=== PATIENT | female | born 1940 | race Caucasian/White ===

== ENCOUNTER → 2017-01-16 | Outpatient (CLI) | payer MEDICARE, OTHER ==
--- NOTE | 2017-01-16 13:39 | RADIOLOGY REPORT (SQ) ---
EXAM DESCRIPTION: CHEST PA/LATERAL COMPLETED DATE/TIME: 01/16/2017 11:53 am REASON FOR STUDY: COUGH COMPARISON: None. EXAM PARAMETERS: NUMBER OF VIEWS: two views TECHNIQUE: Digital Frontal and Lateral radiographic views of the chest acquired. RADIATION DOSE: NA LIMITATIONS: none FINDINGS: LUNGS AND PLEURA: No opacities, masses or pneumothorax. No pleural effusion. MEDIASTINUM AND HILAR STRUCTURES: No masses or contour abnormalities. Retrocardiac hiatal hernia. HEART AND VASCULAR STRUCTURES: Heart normal size. No evidence for failure. BONES: Right shoulder prosthesis. HARDWARE: Cardiac valve. OTHER: No other significant finding. IMPRESSION: No acute pulmonary disease. Retrocardiac hiatal hernia. TECHNICAL DOCUMENTATION: JOB ID: [id number] [employer]- All Rights Reserved
== END ==
LOC: OD 11:30
PROVIDERS: ATTEND Family Medicine
DX: R05 Cough (principal); K44.9 Diaphragmatic hernia without obstruction or gangrene
CPT/HCPCS: 71020

== ENCOUNTER 2017-03-15 07:44 | Outpatient (CLI) | payer MEDICARE, OTHER ==
[~2017-03-15 07:44] MED LIST: ACETAMINOPHEN 325 MG TABLET PO PRN; DIPHENHYDRAMINE HCL 25 MG CAPSULE PO PRN; IRON DEXTRAN COMPLEX 25 MG in SYRINGE, DISPOSABLE, 1 EACH IV PRN; IRON DEXTRAN COMPLEX 975 MG in NORMAL SALINE 1000 ML 1,000 ML IV PRN
[2017-03-15] MEDS: NORMAL SALINE 250 ML IV PRN ×2 (08:12→08:42)
[2017-03-15 08:57] VITALS: BP 113/56
== END 2017-03-15 14:18 | disposition home or self-care (01) ==
LOC: II 07:44 → 5TH 08:21 → II 14:18
PROVIDERS: ATTEND Internal Medicine
PROC: 3E033GC Introduction of Other Therapeutic Substance into Peripheral Vein, Percutaneous Approach (ICD-10-PCS; principal; 2017-03-15)
DX: D50.8 Other iron deficiency anemias (principal)
CPT/HCPCS: 96365; 96366; 96375; A9270 ×2; J1750; J7030; J3490; 96374

== ENCOUNTER 2017-03-16 16:54 | Inpatient (IN) | payer MEDICARE, OTHER ==
[2017-03-16 18:07] LABS: ABSOLUTE BASOPHILS # (AUTO) 0.1 10^3/uL (0.0-0.2); ABSOLUTE EOSINOPHILS # (AUTO) 0.1 10^3/uL (0.0-0.6); ABSOLUTE LYMPHOCYTES (AUTO) 1.8 10^3/uL (0.5-4.7); ABSOLUTE MONOCYTES (AUTO) 0.6 10^3/uL (0.1-1.4); ABSOLUTE NEUT (AUTO) 7.3 10^3/uL (1.7-8.2); BASOPHILS % (AUTO) 1.2 % (0-2); EOSINOPHILS % (AUTO) 1.2 % (0-6); HEMATOCRIT 19.5 % (36.0-47.0); HGB HCT DIFFERENCE 0.3; LYMPHOCYTES % (AUTO) 18.2 % (13-45); MEAN CORPUSCULAR HGB CONC 33.6 g/dL (32.0-36.0); MEAN CORPUSCULAR VOLUME 86 fl (80-97); MONOCYTES % (AUTO) 5.8 % (3-13); RED BLOOD COUNT 2.26 10^6/uL (3.72-5.28); RED CELL DISTRIBUTION WIDTH 14.7 % (11.5-14.0); SEGMENTED NEUTROPHILS % (AUTO) 73.6 % (42-78); WHITE BLOOD COUNT 9.9 10^3/uL (4.0-10.5)
[2017-03-16 18:10] LABS: HEMOGLOBIN 6.6 g/dL (12.0-15.5)
[2017-03-16 18:22] LABS: ALANINE AMINOTRANSFERASE < 6 U/L (9-52); ALBUMIN 3.2 g/dL (3.5-5.0); ALKALINE PHOSPHATASE 70 U/L (38-126); ANION GAP 9 (5-19); ASPARTATE AMINO TRANSFERASE 20 U/L (14-36); BILIRUBIN,DIRECT 0.4 mg/dL (0.0-0.4); BILIRUBIN,TOTAL 0.4 mg/dL (0.2-1.3); BLOOD UREA NITROGEN 32 mg/dL (7-20); CARBON DIOXIDE 24 mmol/L (22-30); CHLORIDE 108 mmol/L (98-107); CREATININE RESULT 0.97 mg/dL (0.52-1.25); GLUCOSE 102 mg/dL (75-110); POTASSIUM 4.2 mmol/L (3.6-5.0); SODIUM 141.2 mmol/L (137-145); TOTAL PROTEIN 5.7 g/dL (6.3-8.2)
--- NOTE | 2017-03-16 18:28 | RADIOLOGY REPORT (SQ) ---
EXAM DESCRIPTION: CHEST SINGLE VIEW COMPLETED DATE/TIME: 03/16/2017 6:05 pm REASON FOR STUDY: fluid overload COMPARISON: 01/16/2017 EXAM PARAMETERS: NUMBER OF VIEWS: One view. TECHNIQUE: Single frontal radiographic view of the chest acquired. RADIATION DOSE: NA LIMITATIONS: None. FINDINGS: LUNGS AND PLEURA: No opacities, masses or pneumothorax. No pleural effusion. MEDIASTINUM AND HILAR STRUCTURES: No masses. Contour normal. HEART AND VASCULAR STRUCTURES: Heart size is borderline. There is no failure. BONES: No acute findings. HARDWARE: Sternotomy wires. OTHER: No other significant finding. IMPRESSION: Borderline cardiomegaly with no failure. TECHNICAL DOCUMENTATION: JOB ID: [id number] [employer]- All Rights Reserved
--- NOTE | 2017-03-16 18:56 | ER Document Report ---
ED General - General Mode of Arrival: Wheelchair Information source: Patient TRAVEL OUTSIDE OF THE U.S. IN LAST 30 DAYS: No - HPI Onset: This morning Exacerbated by: Movement, Walking <FRAN KAUR - Last Filed: 03/16/17 19:08> <BUD PACKER - Last Filed: 03/16/17 23:25> - General Chief Complaint: Shortness Of Breath Stated Complaint: WEAKNESS Notes: Patient is a 77 year old female with a history of CHF presents to the emergency department complaining of multiple symptoms including weakness, dizziness, nausea, and difficulty breathing when walking. Patient states that her legs feel heavy when she tries to move. Patient denies any vomiting or diarrhea. Patient states that she had an iron infusion yesterday due to her being anemic. Patient states she has a history of nosebleeds and would have an occasional "small" nosebleed over the last couple of months. (FRAN KAUR) Patient is feeling particularly weak on exertion, states this feels very different from her CHF and from usual after iron infusions. (BUD PACKER) - Related Data Allergies/Adverse Reactions: No Known Allergies Allergy (Unverified 03/12/17 15:29) Home Medications: Current Home Medications Cetirizine HCl [24Hour Allergy] 10 mg PO DAILY 03/16/17 [History] Duloxetine HCl [Cymbalta] 30 mg PO DAILY 03/16/17 [History] Fluticasone Propionate [Flonase Nasal [place] 50 Mcg/[place] 16 gm] 1 spray NASL Q12 03/16/17 [History] Warfarin Sodium [Coumadin 2.5 mg Tablet] 2.5 mg PO QHS 03/16/17 [History] Past Medical History - General Information source: Patient - Social History Smoking Status: Never Smoker Chew tobacco use (# tins/day): No Frequency of alcohol use: Occasional Drug Abuse: None Patient has suicidal ideation: No Patient has homicidal ideation: No - Past Medical History Cardiac Medical History: Reports: Hx Congestive Heart Failure Musculoskeltal Medical History: Reports Hx Arthritis <FRAN KAUR - Last Filed: 03/16/17 19:08> - Social History Family History: Hypertension <BUD PACKER - Last Filed: 03/16/17 23:25> Review of Systems - Review of Systems Constitutional: See HPI, Weakness EENT: No symptoms reported Cardiovascular: See HPI, Dizziness Respiratory: See HPI, Other - difficulty breathing Gastrointestinal: See HPI, Nausea. denies: Vomiting Genitourinary: No symptoms reported Female Genitourinary: No symptoms reported Musculoskeletal: No symptoms reported Skin: No symptoms reported Hematologic/Lymphatic: No symptoms reported Neurological/Psychological: No symptoms reported -: Yes All other systems reviewed and negative <FRAN KAUR - Last Filed: 03/16/17 19:08> Physical Exam <FRAN KAUR - Last Filed: 03/16/17 19:08> <BUD PACKER - Last Filed: 03/16/17 23:25> - Vital signs Vitals: Temp 98.1 F 03/16/17 17:11 - Notes Notes: GENERAL: Alert, interacts well. No acute distress. HEAD: Normocephalic, atraumatic. EYES: Pupils equal, round, and reactive to light. Extraocular movements intact. ENT: Oral mucosa moist, tongue midline. NECK: Full range of motion. Supple. Trachea midline. LUNGS: Clear to auscultation bilaterally, no wheezes, rales, or rhonchi. No respiratory distress. HEART: 1/6 systolic murmur in RUSP. No gallops, or rubs. ABDOMEN: Soft, non-tender. Non-distended. Bowel sounds present in all 4 quadrants. EXTREMITIES: Moves all 4 extremities spontaneously. No edema, radial and dorsalis pedis pulses 2/4 bilaterally. No cyanosis. NEUROLOGICAL: Alert and oriented x3. Normal speech. PSYCH: Normal affect, normal mood. SKIN: Warm, dry, normal turgor. No rashes or lesions noted. RECTAL: No melanoma, no bright red blood. Stool is dark and firm in rectum. (FRAN KAUR) Correction to exam it should say 1/6 systolic murmur best heard in the RUSB ( BUD PACKER) Course - Laboratory Result Diagrams: 03/16/17 17:20 03/16/17 17:20 <FRAN KAUR - Last Filed: 03/16/17 19:08> - Laboratory Result Diagrams: 03/16/17 17:20 03/16/17 17:20 <BUD PACKER - Last Filed: 03/16/17 23:25> - Re-evaluation Re-evalutation: 03/16/17 21:14 CBC shows marked anemia with hemoglobin 6.6, I have no old ones to compare to but this seems markedly worse than would be typical and certainly explains her symptoms of profound fatigue. Cardiac enzymes negative, proBNP not elevated, occult blood is positive though she is not melanotic or grossly bloody, chest x- ray does not show any signs of congestive heart failure. Patient does need a blood transfusion given her symptoms and her profound anemia , given her CHF and her tenuous fluid status I feel this is more safely done as an observation patient, discussed with Dr. Chen who is covering for Dr. Gonzalez and he agreed to place patient on his service in observation status for a blood transfusion. (BUD PACKER) - Vital Signs Vital signs: Temp Pulse Resp BP Pulse Ox 98 F 21 H 93/52 L 97 03/16/17 22:31 03/16/17 22:31 03/16/17 22:31 03/16/17 22:31 - Laboratory Laboratory results interpreted by me: 03/16/17 03/16/17 03/16/17 17:20 17:20 19:15 RBC 2.26 L Hgb 6.6 L Hct 19.5 L RDW 14.7 H Chloride 108 H BUN 32 H Est GFR (Non-Af Amer) 55 L ALT < 6 L Total Protein 5.7 L Albumin 3.2 L Urine Ketones Urine Ascorbic Acid Crossmatch See Detail 03/16/17 21:29 RBC Hgb Hct RDW Chloride BUN Est GFR (Non-Af Amer) ALT Total Protein Albumin Urine Ketones TRACE H Urine Ascorbic Acid 40 H Crossmatch Discharge <FRAN KAUR - Last Filed: 03/16/17 19:08> - Discharge Admitting Provider: Carlos luciano covering Unit Admitted: Telemetry <BUD PACKER - Last Filed: 03/16/17 23:25> - Discharge Clinical Impression: Anemia Qualifiers: Anemia type: iron deficiency Iron deficiency anemia type: chronic blood loss Qualified Code(s): D50.0 - Iron deficiency anemia secondary to blood loss ( chronic) Condition: Fair Disposition: ADMITTED OBSERVATION Scribe Attestation: 03/16/17 23:24 I personally performed the services described in the documentation, reviewed and edited the documentation which was dictated to the scribe in my presence, and it accurately records my words and actions. (BUD PACKER) Scribe Documentation - Scribe Written by Joe:: Joe Hernandes, 03/16/2017 acting as scribe for :: Luca <FRAN KAUR - Last Filed: 03/16/17 19:08>
[2017-03-16 19:12] LABS: CREATINE KINASE MB 0.47 ng/mL (<4.55)
[2017-03-16 19:15] LABS: TROPONIN I < 0.012 ng/mL
[2017-03-16] MEDS ORDERED: NORMAL SALINE 250 ML IV PRN (20:36)
[2017-03-16 21:55] LABS: APPEARANCE,URINE CLEAR; BILIRUBIN,URINE NEGATIVE (NEGATIVE); GLUCOSE, URINE NEGATIVE (NEGATIVE); KETONES,URINE TRACE mg/dL (NEGATIVE); LEUKOCYTE ESTERASE,URINE NEGATIVE (NEGATIVE); NITRITE,URINE NEGATIVE (NEGATIVE); PROTEIN,URINE NEGATIVE (NEGATIVE); URINE SPECIFIC GRAVITY 1.012; UROBILINOGEN,URINE NEGATIVE mg/dL (<2.0)
[2017-03-17 09:52] LABS: ABSOLUTE BASOPHILS # (AUTO) 0.1 10^3/uL (0.0-0.2); ABSOLUTE EOSINOPHILS # (AUTO) 0.2 10^3/uL (0.0-0.6); ABSOLUTE LYMPHOCYTES (AUTO) 2.6 10^3/uL (0.5-4.7); ABSOLUTE MONOCYTES (AUTO) 0.7 10^3/uL (0.1-1.4); ABSOLUTE NEUT (AUTO) 5.8 10^3/uL (1.7-8.2); BASOPHILS % (AUTO) 1.3 % (0-2); EOSINOPHILS % (AUTO) 2.2 % (0-6); HEMATOCRIT 25.4 % (36.0-47.0); HEMOGLOBIN 8.6 g/dL (12.0-15.5); HGB HCT DIFFERENCE 0.4; LYMPHOCYTES % (AUTO) 27.8 % (13-45); MEAN CORPUSCULAR HEMOGLOBIN 29.1 pg (27.0-33.4); MEAN CORPUSCULAR VOLUME 86 fl (80-97); MONOCYTES % (AUTO) 7.5 % (3-13); RED BLOOD COUNT 2.97 10^6/uL (3.72-5.28); RED CELL DISTRIBUTION WIDTH 14.8 % (11.5-14.0); SEGMENTED NEUTROPHILS % (AUTO) 61.2 % (42-78); WHITE BLOOD COUNT 9.4 10^3/uL (4.0-10.5)
[2017-03-17 12:46] VITALS: BP 121/56
[2017-03-17 14:36] LABS: PROTHROMBIN TIME 27.9 SEC (11.4-15.4)
--- NOTE | 2017-03-17 15:03 | PDOC H&P ---
History of Present Illness Admission Date/PCP: 03/16/17 21:36 BRISEIDA CRAFT MD History of Present Illness: ZENY PRITCHARD is a 77 year old female, she has a history of chronic anemia, she stated that the anemia was extensively evaluated with multiple endoscopies even when she was staying in [facility]. She just recently moved to this area from [place], she said since she came via she also has had endoscopies done for evaluation of the anemia, she follows with cooker tender, she had iron infusion on of this week. She could emergency room last night because she felt very fatigued, she is very functional, she walks every day, but she says she felt very weak in the emergency room she was evaluated she was found to be anemic the hemoglobin was 6.6. She was admitted for management she was transfused with 2 units of packed red blood cells posttransfusion hemoglobin is 8.6. She has a mechanical valve on she is on chronic anticoagulation with Coumadin, the INR was therapeutic at 2.45. She says she wants to go home she is going to stay to be evaluated for this anemia because she has had extensive evaluation in the past, she will follow with Dr. Craft next week for further evaluation of the anemia. Past Medical History Musculoskeltal Medical History: Reports: Arthritis Hematology: Reports: Anemia Social History Smoking Status: Never Smoker - Advance Directive Resuscitation Status: Full Code Family History Family History: Hypertension Parental Family History Reviewed: Yes Children Family History Reviewed: Yes Sibling(s) Family History Reviewed.: Yes Medication/Allergy Home Medications: Cetirizine HCl [24Hour Allergy] 10 mg PO DAILY 03/16/17 Duloxetine HCl [Cymbalta] 30 mg PO DAILY 03/16/17 Fluticasone Propionate [Flonase Nasal [place] 50 Mcg/[place] 16 gm] 1 spray NASL Q12 03/16/17 Warfarin Sodium [Coumadin 2.5 mg Tablet] 2.5 mg PO QHS 03/16/17 Allergies/Adverse Reactions: No Known Allergies Allergy (Unverified 03/12/17 15:29) Review of Systems Constitutional: PRESENT: fatigue Eyes: ABSENT: visual disturbances Ears: ABSENT: hearing changes Cardiovascular: ABSENT: chest pain, dyspnea on exertion, edema, orthropnea, palpitations Respiratory: ABSENT: cough, hemoptysis Gastrointestinal: ABSENT: abdominal pain, constipation, diarrhea, hematemesis, hematochezia, nausea, vomiting Genitourinary: ABSENT: dysuria, hematuria Musculoskeletal: ABSENT: joint swelling Integumentary: ABSENT: rash, wounds Neurological: ABSENT: abnormal gait, abnormal speech, confusion, dizziness, focal weakness, syncope Psychiatric: ABSENT: anxiety, depression, homidical ideation, suicidal ideation Endocrine: ABSENT: cold intolerance, heat intolerance, menstrual abnormalities, polydipsia, polyuria Hematologic/Lymphatic: ABSENT: easy bleeding, easy bruising, lymphadenopathy Physical Exam Vital Signs: Temp Pulse Resp BP Pulse Ox 98.3 F 75 20 121/56 L 98 03/17/17 12:02 03/17/17 12:02 03/17/17 12:02 03/17/17 12:02 03/17/17 12:02 Intake & Output 03/16/17 03/17/17 03/18/17 06:59 06:59 06:59 Intake Total 550 950 Output Total 500 Balance 550 450 Weight 78.4 kg General appearance: PRESENT: no acute distress, well-developed, well-nourished Head exam: PRESENT: atraumatic, normocephalic Eye exam: PRESENT: conjunctiva pink, EOMI, PERRLA Ear exam: PRESENT: normal external ear exam Mouth exam: PRESENT: moist, tongue midline Neck exam: PRESENT: full ROM Respiratory exam: PRESENT: clear to auscultation moni Cardiovascular exam: PRESENT: RRR, +S1, +S2 Pulses: PRESENT: normal dorsalis pedis pul, +2 pedal pulses bilateral Vascular exam: PRESENT: normal capillary refill GI/Abdominal exam: PRESENT: normal bowel sounds, soft Rectal exam: PRESENT: deferred Neurological exam: PRESENT: alert, awake, oriented to person, oriented to place , oriented to time, oriented to situation, CN II-XII grossly intact Psychiatric exam: PRESENT: appropriate affect, normal mood Skin exam: PRESENT: dry, intact, warm Results Laboratory Results: 03/17/17 09:42 03/17/17 09:42 WBC 9.4 RBC 2.97 L Hgb 8.6 L Hct 25.4 L MCV 86 MCH 29.1 MCHC 34.0 RDW 14.8 H Plt Count 285 Seg Neutrophils % 61.2 Lymphocytes % 27.8 Monocytes % 7.5 Eosinophils % 2.2 Basophils % 1.3 Absolute Neutrophils 5.8 Absolute Lymphocytes 2.6 Absolute Monocytes 0.7 Absolute Eosinophils 0.2 Absolute Basophils 0.1 Impressions: Chest X-Ray 03/16/17 17:35 IMPRESSION: Borderline cardiomegaly with no failure. Assessment & Plan - Diagnosis (1) Anemia Qualifiers: Anemia type: iron deficiency Iron deficiency anemia type: chronic blood loss Qualified Code(s): D50.0 - Iron deficiency anemia secondary to blood loss (chronic) Is this a current diagnosis for this admission?: Yes Plan: She was admitted for observation essentially for blood transfusion
--- NOTE | 2017-03-17 20:58 | EKG REPORT ---
SEVERITY:- BORDERLINE ECG - SINUS RHYTHM BORDERLINE T ABNORMALITIES, ANT-LAT LEADS : Confirmed by: Kile Alex MD 16-Mar-2017 19:52:48
[2017-03-17] MEDS ORDERED: WARFARIN SODIUM 2.5 MG TABLET PO SCH (22:00)
== END 2017-03-17 15:10 | disposition home or self-care (01) | DRG 812 ==
LOC: ER 16:54 → OBSVTOIN 21:36 → EH 21:36 → 5 22:59
PROVIDERS: ADMIT Family Medicine; ATTEND Family Medicine
PROC: 30233N1 Transfusion of Nonautologous Red Blood Cells into Peripheral Vein, Percutaneous Approach (ICD-10-PCS; principal; 2017-03-17)
DX: D50.0 Iron deficiency anemia secondary to blood loss (chronic) (principal); M19.90 Unspecified osteoarthritis, unspecified site; I50.9 Heart failure, unspecified; Z95.2 Presence of prosthetic heart valve; Z79.01 Long term (current) use of anticoagulants; Z82.49 Family history of ischemic heart disease and other diseases of the circulatory system
CPT/HCPCS: 36415; 36430; 71010; 80053; 81001; 82272; 82550; 82553; 83880; 84484; 85025; 85610; 86850; 86900; 86901; 86920; 93005; 93010; 99285; G0378; P9016

== ENCOUNTER 2017-06-10 12:00 | Emergency (ER) | payer MEDICARE, OTHER ==
[2017-06-10] MEDS ORDERED: NORMAL SALINE 1000 ML 500 ML IV ONE (13:18)
--- NOTE | 2017-06-10 13:20 | ER Document Report ---
ED Medical Screen (RME) - General Mode of Arrival: Ambulatory Information source: Patient TRAVEL OUTSIDE OF THE U.S. IN LAST 30 DAYS: No <EDWARDO ERVIN - Last Filed: 06/10/17 13:15> <TOBIAS CLAIRE - Last Filed: 06/10/17 15:14> - General Chief Complaint: Weakness Stated Complaint: WEAKNESS Time Seen by Provider: 06/10/17 12:07 Notes: Patient is a 77 year old female that presents to the emergency department today with complaints of generalized weakness. Patient states "I feel like I need my iron infusion now". Patient has her 3-month iron infusion scheduled for tomorrow however she states she "doesn't feel like she can wait". Patient states she feels weak all over, has had shortness of breath, and generalized aches. Patient denies any fevers, recent illnesses, or black/red stool. (EDWARDO ERVIN) - Related Data Allergies/Adverse Reactions: No Known Allergies Allergy (Unverified 03/12/17 15:29) Past Medical History - General Information source: Patient, [facility] Records - Social History Cigarette use (# per day): No Chew tobacco use (# tins/day): No Frequency of alcohol use: None Drug Abuse: None Lives with: Family Family history: Reviewed & Not Pertinent - Past Medical History Cardiac Medical History: Reports: Hx Congestive Heart Failure Musculoskeltal Medical History: Reports Hx Arthritis Surgical Hx: Negative - Immunizations History of Influenza Vaccine for 01/2017 - 06/2017 Season: Yes Influenza Administration Date for 01/2017 - 06/2017 Season: 01/14/17 <EDWARDO ERVIN - Last Filed: 06/10/17 13:15> Review of Systems - Review of Systems Constitutional: See HPI, Weakness - generalized Respiratory: See HPI, Short of breath Musculoskeletal: See HPI, Joint pain <EDWARDO ERVIN - Last Filed: 06/10/17 13:15> Physical Exam - General General appearance: Appears well, Alert In distress: None - HEENT Head: Normocephalic, Atraumatic Eyes: Normal - Respiratory Respiratory status: No respiratory distress Chest status: Nontender Breath sounds: Normal - Cardiovascular Rhythm: Tachycardia Heart sounds: Normal auscultation Murmur: Yes - systolic - Abdominal Inspection: Normal Distension: No distension - Extremities General upper extremity: Normal inspection, Normal ROM General lower extremity: Normal inspection, Normal ROM - Neurological Neuro grossly intact: Yes Cognition: Normal Orientation: AAOx4 - Psychological Associated symptoms: Normal affect, Normal mood - Skin Skin Temperature: Warm Skin Moisture: Dry Skin Color: Normal <EDWARDO ERVIN - Last Filed: 06/10/17 13:15> - Vital signs Vitals: Temp Pulse Resp BP Pulse Ox 98.7 F 120 H 18 88/55 L 95 06/10/17 12:12 06/10/17 12:12 06/10/17 12:12 06/10/17 12:12 06/10/17 12:12 Course - Laboratory Result Diagrams: 06/10/17 13:23 06/10/17 13:23 <TOBIAS CLAIRE - Last Filed: 06/10/17 15:14> - Vital Signs Vital signs: Temp Pulse Resp BP Pulse Ox 98.7 F 120 H 21 H 100/70 96 06/10/17 12:12 06/10/17 12:12 06/10/17 14:17 06/10/17 13:00 06/10/17 14:17 - Laboratory Laboratory results interpreted by me: 06/10/17 06/10/17 13:23 13:23 Hgb 11.6 L Hct 35.7 L RDW 15.7 H Basophils % 2.5 H BUN 22 H Est GFR ( Amer) 57 L Est GFR (Non-Af Amer) 47 L Glucose 118 H Total Bilirubin 0.1 L Scribe Documentation - Scribe Written by Joe:: Joe French, 06/10/2017 1320 acting as scribe for :: Jeff <EDWARDO ERVIN - Last Filed: 06/10/17 13:15>
[2017-06-10 13:39] LABS: ABSOLUTE BASOPHILS # (AUTO) 0.2 10^3/uL (0.0-0.2); ABSOLUTE EOSINOPHILS # (AUTO) 0.1 10^3/uL (0.0-0.6); ABSOLUTE LYMPHOCYTES (AUTO) 1.8 10^3/uL (0.5-4.7); ABSOLUTE MONOCYTES (AUTO) 0.3 10^3/uL (0.1-1.4); ABSOLUTE NEUT (AUTO) 4.7 10^3/uL (1.7-8.2); BASOPHILS % (AUTO) 2.5 % (0-2); HEMATOCRIT 35.7 % (36.0-47.0); HEMOGLOBIN 11.6 g/dL (12.0-15.5); LYMPHOCYTES % (AUTO) 26.1 % (13-45); MEAN CORPUSCULAR HEMOGLOBIN 29.3 pg (27.0-33.4); MEAN CORPUSCULAR HGB CONC 32.5 g/dL (32.0-36.0); MEAN CORPUSCULAR VOLUME 90 fl (80-97); PLATELET COUNT 312 10^3/uL (150-450); RED BLOOD COUNT 3.97 10^6/uL (3.72-5.28); RED CELL DISTRIBUTION WIDTH 15.7 % (11.5-14.0); RETICULOCYTE COUNT (AUTO) 0.75 % (0.66-2.85); SEGMENTED NEUTROPHILS % (AUTO) 66.4 % (42-78); TOTAL CELLS COUNTED % (AUTO) 100 %; WHITE BLOOD COUNT 7.1 10^3/uL (4.0-10.5)
[2017-06-10 13:53] LABS: ALANINE AMINOTRANSFERASE 23 U/L (9-52); ALBUMIN 4.4 g/dL (3.5-5.0); ALKALINE PHOSPHATASE 81 U/L (38-126); ANION GAP 12 (5-19); ASPARTATE AMINO TRANSFERASE 25 U/L (14-36); BILIRUBIN,TOTAL 0.1 mg/dL (0.2-1.3); BLOOD UREA NITROGEN 22 mg/dL (7-20); CALCIUM 9.6 mg/dL (8.4-10.2); CARBON DIOXIDE 25 mmol/L (22-30); CHLORIDE 106 mmol/L (98-107); GLUCOSE 118 mg/dL (75-110); IRON(TIBC) 40.1 ug/dL (37-170); POTASSIUM 4.7 mmol/L (3.6-5.0); SODIUM 143.4 mmol/L (137-145); TOTAL PROTEIN 6.8 g/dL (6.3-8.2)
[2017-06-10 15:03] LABS: FOLATE > 20.00 ng/mL (>2.76)
--- NOTE | 2017-06-10 15:24 | ER Document Report ---
ED Dizziness/Weakness - General Chief Complaint: Weakness Stated Complaint: WEAKNESS Time Seen by Provider: 06/10/17 12:07 Mode of Arrival: Ambulatory TRAVEL OUTSIDE OF THE [place]. IN LAST 30 DAYS: No - Related Data Allergies/Adverse Reactions: No Known Allergies Allergy (Unverified 03/12/17 15:29) Past Medical History - General Information source: Patient, [facility] Records - Social History Smoking Status: Never Smoker Cigarette use (# per day): No Chew tobacco use (# tins/day): No Frequency of alcohol use: None Drug Abuse: None Lives with: Family Family History: Hypertension Patient has suicidal ideation: No Patient has homicidal ideation: No - Past Medical History Cardiac Medical History: Reports: Hx Congestive Heart Failure Renal/ Medical History: Denies: Hx Peritoneal Dialysis Musculoskeltal Medical History: Reports Hx Arthritis Surgical Hx: Negative - Immunizations Hx Pneumococcal Vaccination: 04/16/14 Physical Exam - Vital signs Vitals: Temp Pulse Resp BP Pulse Ox 98.7 F 120 H 18 88/55 L 95 06/10/17 12:12 06/10/17 12:12 06/10/17 12:12 06/10/17 12:12 06/10/17 12:12 Course - Vital Signs Vital signs: Temp Pulse Resp BP Pulse Ox 98.7 F 120 H 21 H 100/70 96 06/10/17 12:12 06/10/17 12:12 06/10/17 14:17 06/10/17 13:00 06/10/17 14:17 - Laboratory Result Diagrams: 06/10/17 13:23 06/10/17 13:23 Laboratory results interpreted by me: 06/10/17 06/10/17 13:23 13:23 Hgb 11.6 L Hct 35.7 L RDW 15.7 H Basophils % 2.5 H BUN 22 H Est GFR ( Amer) 57 L Est GFR (Non-Af Amer) 47 L Glucose 118 H Total Bilirubin 0.1 L Discharge - Discharge Clinical Impression: Dehydration, History of anemia Condition: Stable Disposition: HOME, SELF-CARE Additional Instructions: Drink plenty of fluids. Return immediately for any new or worsening symptoms. Follow up with primary care provider, call tomorrow to make followup appointment. Referrals: JUAN CRAFT MD [Primary Care Provider] - Follow up as needed
[2017-06-10 15:31] VITALS: BP 99/80
--- NOTE | 2017-06-10 16:13 | EKG REPORT ---
SEVERITY:- ABNORMAL ECG - A FLUTTER SUSPECTED . NONSPECIFIC ST-T CHANGES LATERAL LEADS. : Confirmed by: Kiel Alex MD 10-Jun-2017 16:12:25
== END 2017-06-10 16:00 | disposition home or self-care (01) ==
LOC: ER 12:00
DX: E86.0 Dehydration (principal); D64.9 Anemia, unspecified; R53.1 Weakness; M79.1 Myalgia; R06.02 Shortness of breath; I50.9 Heart failure, unspecified
CPT/HCPCS: 93005; 99285; 36415; 82607; 82728; 82746; 83540; 83550; 83735; 84443; 85025; 85045; 80053; 84484; 84466; 93010; J7030

== ENCOUNTER → 2017-09-26 | Outpatient (CLI) | payer MEDICARE, OTHER ==
--- NOTE | 2017-09-26 14:54 | WOMENS IMAGING REPORT ---
EXAM DESCRIPTION: BONE DENSITY HIP/SPINE COMPLETED DATE/TIME: 09/26/2017 1:41 pm REASON FOR STUDY: AGE-RELATED OSTEOPROSIS; M81.0 M81.0 AGE-RELATED OSTEOPOROSIS W/O CURRENT PATHOLO GICAL FRAC COMPARISON: None. TECHNIQUE: Dual-Energy X-ray Absorptiometry (DEXA) of the AP Spine and Hip. LIMITATIONS: None. FINDINGS: LUMBAR SPINE: The bone mineral density (BMD) measured from L1-L4 in the AP projection correlates with a T-score of +1.1, which is normal as defined by the World Health Organization. HIP: The bone mineral density (BMD) measured in the left femoral neck at the hip correlates with a T-score of -2.0, which is osteopenic as defined by the World Health Organization. IMPRESSION: 1. LUMBAR SPINE: Normal 2. HIP: Osteopenic COMMENT: The World Health Organization defines low BMD as follows: T-score: Normal: Greater than -1.0 Osteopenia: Between -1.0 and -2.5 Osteoporosis: Less than -2.5 without fractures Established osteoporosis: Less than -2.5 with fractures In general, you may wish to consider: Diagnosis Treatment Follow-up DEXA Normal BMD Prevention 2-3 years Osteopenia Prevention/Therapy 1-2 years Osteoporosis Therapy Yearly TECHNICAL DOCUMENTATION: JOB ID: [id number] [employer]- All Rights Reserved Reading location - IP/workstation name: [email or web address]
== END ==
LOC: WI 13:22
PROVIDERS: ATTEND Family Medicine
DX: M81.0 Age-related osteoporosis without current pathological fracture (principal)
CPT/HCPCS: 77080

== ENCOUNTER → 2017-11-28 | Outpatient (CLI) | payer MEDICARE, OTHER ==
--- NOTE | 2017-11-28 13:51 | RADIOLOGY REPORT (SQ) ---
EXAM DESCRIPTION: CHEST PA/LATERAL COMPLETED DATE/TIME: 11/28/2017 1:15 pm REASON FOR STUDY: CHRONIC HEART FAILURE, UNSPECIFIED HEART FAILURE TYPE COMPARISON: 03/16/2017 EXAM PARAMETERS: NUMBER OF VIEWS: two views TECHNIQUE: Digital Frontal and Lateral radiographic views of the chest acquired. RADIATION DOSE: NA LIMITATIONS: none FINDINGS: LUNGS AND PLEURA: Chronic interstitial changes in the lung bases. MEDIASTINUM AND HILAR STRUCTURES: Hiatal hernia. HEART AND VASCULAR STRUCTURES: Cardiac silhouette is enlarged. BONES: No acute findings. HARDWARE: Sternotomy wires. OTHER: No other significant finding. IMPRESSION: Cardiomegaly without CHF. Chronic lung changes. Hiatal hernia. TECHNICAL DOCUMENTATION: JOB ID: [id number] [employer]- All Rights Reserved Reading location - IP/workstation name: [email or web address]
== END ==
LOC: OD 12:54
PROVIDERS: ATTEND Family Medicine
DX: I50.9 Heart failure, unspecified (principal)
CPT/HCPCS: 71046

== ENCOUNTER → 2017-12-20 | Outpatient (CLI) | payer MEDICARE, OTHER ==
--- NOTE | 2017-12-24 13:56 | WOMENS IMAGING REPORT ---
EXAM DESCRIPTION: 3D SCREENING MAMMO BILAT COMPLETED DATE/TIME: 12/20/2017 2:05 pm REASON FOR STUDY: SCREENING MAMMO Z12.31 ENCNTR SCREEN MAMMOGRAM FOR MALIGNANT NEOPLASM OF [place] COMPARISON: None available TECHNIQUE: Standard craniocaudal and mediolateral oblique views of each breast recorded using digita l acquisition and breast tomosynthesis. LIMITATIONS: None. FINDINGS: Findings present which are benign by mammographic criteria. No suspicious masses, calcifi cations or architectural distortion. Pertinent benign findings: Benign bilateral breast parenchymal and skin calcifications Read with the assistance of CAD. .[facility] - R2 [employer] Version 1.3 .[facility] - R2 Cenova Version 1.3 .[facility] Imaging - R2 Cenova Version 2.4 .[facility] - R2 Cenova Version 2.4 .[facility] - R2 [employer] Version 9.2 Benign mammographic findings may include one or more of the following: Smooth masses, popcorn/rim/co arse calcifications, asymmetries, post-procedure changes, and lesions with long-standing stability. IMPRESSION: BENIGN MAMMOGRAPHIC FINDINGS. BIRADS 2 BREAST DENSITY: a. The breasts are almost entirely fatty. BIRAD: 2 BENIGN FINDING(S) RECOMMENDATION: RECOMMENDATION: ROUTINE SCREENING Please continue yearly bilateral screening tomosynthesis in December 2018 COMMENT: The patient has been notified of the results by letter per MQSA requirements. Additional no tification policies are in place for contacting patient with suspicious or incomplete findings. Quality ID #[id number]: The [employer] recommends an annual screening mammogram for women aged 40 years or over. This facility utilizes a reminder system to ensure that all patients receive reminder letters, and/or direct phone calls for appointments. This includes reminders for routine scr eening mammograms, diagnostic mammograms, or other Breast Imaging Interventions when appropriate. Th is patient will be placed in the appropriate reminder system. The [employer] (ACR) has developed recommendations for screening MRI of the breast s in certain patient populations, to be used in conjunction with mammography. Breast MRI surveillanc e may be appropriate for women with more than 20% lifetime risk of developing breast cancer as deter mined by genetic testing, significant family history of the disease, or history of mantle radiation f or Hodgkins Disease. ACR Practice Guidelines 2008. DBT Technology DBT is a type of tomographic mammography. With conventional mammography, overlapping breast tissue ma y make lesions difficult to detect, even with good compression. DBT uses an x-ray tube that rotates a round the breast, taking images at different angles. These images are then combined to create thin sl ices of the breast that the radiologist can view as a 3D reconstruction. The [employer] unit can perform full-field digital mammograms (2D imaging); or DBT (3D imaging); or both, in a combination mode that quickly performs both the mammogram and the tomosynthesis scan while the breast is still compressed. PQRS 6045F: Fluoroscopic imaging is not utilized for breast tomosynthesis. TECHNICAL DOCUMENTATION: FINDING NUMBER: (1) ASSESSMENT: (1) JOB ID: [id number] [employer]- All Rights Reserved Reading location - IP/workstation name: [email or web address]
== END ==
LOC: WI 13:46
PROVIDERS: ATTEND Family Medicine
DX: Z12.31 Encounter for screening mammogram for malignant neoplasm of breast (principal)
CPT/HCPCS: 77063; 77067

== ENCOUNTER 2018-02-09 09:38 | Inpatient (IN) | payer MEDICARE, OTHER ==
[2018-02-09] MEDS ORDERED: DILTIAZEM HCL/D5W 125 MG/125 ML RTUINJ IV PRN ×2 (10:04→14:53)
[2018-02-09] MEDS ORDERED: DILTIAZEM HCL INJ 25 MG/5 ML VIAL IV ONE (10:04)
--- NOTE | 2018-02-09 10:10 | ER Document Report ---
ED Cardiac - General Chief Complaint: Palpitations Stated Complaint: HEART PALPITATIONS Time Seen by Provider: 02/09/18 10:01 TRAVEL OUTSIDE OF THE [place] IN LAST 30 DAYS: No - HPI Patient complains to provider of: Palpitations Was the onset of pain: Sudden Is the pain a: New problem Chest pain location: Substernal Quality of pain: None Chest pain precipitating factors: At Rest Cardiac risk factors: Hypertension Associated symptoms: Other - Fatigue Notes: Patient is a 78-year-old female that presents to the emergency department for chief complaint of palpitations. Patient started having substernal palpitations today. She states she has a history of A. fib and is on Coumadin. She denies history of rapid heartbeat in the fast. She states she does take medication for blood pressure but forgot to take it this morning. She reports substernal palpitations that are nonradiating. They occurred at rest. She denies exacerbating or relieving factors. He denies associated shortness of breath and lightheadedness. She has been coughing for the last week and has been on Keflex for the last 6 days that was prescribed by her PCP for URI. Past Medical History: Atrial fibrillation Past Surgical History: Reviewed in chart Social History: Denies drugs alcohol and tobacco Family History: Reviewed and noncontributory for presenting illness Allergies: Reviewed, see documented allergy list. REVIEW OF SYSTEMS: CONSTITUTIONAL : No fever Fatigue No chills No diaphoresis No recent illness EENT: No vision changes No congestion No sore throat CARDIOVASCULAR: No chest pain palpitations RESPIRATORY: No shortness of breath No cough No difficulty breathing GASTROINTESTINAL: No abdominal pain No nausea No vomiting No diarrhea GENITOURINARY: No dysuria No hematuria No difficulty urinating MUSCULOSKELETAL: No back pain No leg pain No arm pain SKIN: No rashes No lesions LYMPHATIC: No swollen, enlarged glands. NEUROLOGICAL: No lightheadedness No headache No weakness No paresthesias PSYCHIATRIC: No anxiety No depression PHYSICAL EXAMINATION: Vital signs reviewed, nursing noted reviewed. GENERAL: Well-appearing, well-nourished and in no acute distress. HEAD: Atraumatic, normocephalic. EYES: Eyes appear normal, extraocular movements intact, sclera anicteric, conjunctiva are normal. ENT: nares patent, oropharynx clear without exudates. Moist mucous membranes. NECK: Normal range of motion, supple without lymphadenopathy LUNGS: Breath sounds clear to auscultation bilaterally and equal. No wheezes rales or rhonchi. HEART: Irregularly irregular, tachycardic. +2/4 radial pulse bilaterally ABDOMEN: Soft, nontender, normoactive bowel sounds. No rebound, guarding, or rigidity. No masses appreciated. EXTREMITIES: Nontender, good range of motion, no pitting or edema. NEUROLOGICAL: No focal neurological deficits. Moves all extremities spontaneously Motor and sensory grossly intact on exam. PSYCH: Normal mood, normal affect. SKIN: Warm, Dry, normal turgor, no rashes or lesions noted on exposed skin - Related Data Allergies/Adverse Reactions: No Known Allergies Allergy (Verified 02/09/18 09:40) Past Medical History - Social History Smoking Status: Never Smoker Family History: Hypertension - Past Medical History Cardiac Medical History: Reports: Hx Congestive Heart Failure Renal/ Medical History: Denies: Hx Peritoneal Dialysis Musculoskeletal Medical History: Reports Hx Arthritis - Immunizations Hx Pneumococcal Vaccination: 04/16/14 Review of Systems - Review of Systems Notes: Dictated Physical Exam - Vital signs Vitals: Temp Pulse Resp BP Pulse Ox 98.0 F 54 L 16 97/78 L 98 02/09/18 09:44 02/09/18 09:44 02/09/18 09:44 02/09/18 09:44 02/09/18 09:44 - Notes Notes: Dictated Course - Re-evaluation Re-evalutation: 02/09/18 10:08 Vitals reviewed. Nursing notes reviewed. EKG shows A. fib with RVR. Patient given Cardizem for rate control. She was placed on Cardizem infusion for continued rate control. 02/09/18 11:41 Patient reevaluated. She is symptomatically improved with heart rate control on the Cardizem. Her blood pressure improved with rate control as well. Patient's lab work is unremarkable. She will be admitted to [facility] for further management of her A. fib with RVR and telemetry monitoring. Case discussed with Dr. Chen who accepted admission. Patient in agreement with this plan. Stable at time of admission. Laboratory 02/09/18 02/09/18 02/09/18 10:17 10:17 10:17 WBC 6.0 RBC 3.41 L Hgb 11.0 L Hct 33.1 L MCV 97 MCH 32.3 MCHC 33.3 RDW 14.2 H Plt Count 212 Seg Neutrophils % 68.1 Lymphocytes % 22.1 Monocytes % 7.0 Eosinophils % 2.0 Basophils % 0.8 Absolute Neutrophils 4.1 Absolute Lymphocytes 1.3 Absolute Monocytes 0.4 Absolute Eosinophils 0.1 Absolute Basophils 0.0 PT INR Sodium 143.4 Potassium 3.8 Chloride 106 Carbon Dioxide 27 Anion Gap 10 BUN 22 H Creatinine 0.95 Est GFR ( Amer) > 60 Est GFR (Non-Af Amer) 57 L Glucose 122 H Calcium 9.5 Total Bilirubin 0.6 Direct Bilirubin 0.3 Neonat Total Bilirubin Not Reportable Neonat Direct Bilirubin Not Reportable Neonat Indirect Bili Not Reportable AST 84 H ALT 84 H Alkaline Phosphatase 103 Troponin I < 0.012 Total Protein 7.0 Albumin 3.9 02/09/18 10:17 WBC RBC Hgb Hct MCV MCH MCHC RDW Plt Count Seg Neutrophils % Lymphocytes % Monocytes % Eosinophils % Basophils % Absolute Neutrophils Absolute Lymphocytes Absolute Monocytes Absolute Eosinophils Absolute Basophils PT Cancelled INR Cancelled Sodium Potassium Chloride Carbon Dioxide Anion Gap BUN Creatinine Est GFR ( Amer) Est GFR (Non-Af Amer) Glucose Calcium Total Bilirubin Direct Bilirubin Neonat Total Bilirubin Neonat Direct Bilirubin Neonat Indirect Bili AST ALT Alkaline Phosphatase Troponin I Total Protein Albumin Chest X-Ray 02/09/18 10:04 IMPRESSION: NO ACUTE RADIOGRAPHIC FINDING IN THE CHEST. - Vital Signs Vital signs: Temp Pulse Resp BP Pulse Ox 98.0 F 127 H 28 H 110/74 93 02/09/18 09:44 02/09/18 10:31 02/09/18 10:31 02/09/18 10:31 02/09/18 10:31 - Laboratory Result Diagrams: 02/09/18 10:17 02/09/18 10:17 Laboratory results interpreted by me: 02/09/18 02/09/18 10:17 10:17 RBC 3.41 L Hgb 11.0 L Hct 33.1 L RDW 14.2 H BUN 22 H Est GFR (Non-Af Amer) 57 L Glucose 122 H AST 84 H ALT 84 H - EKG Interpretation by Me Additional EKG results interpreted by me: 02/09/18 10:08 Interpreted by myself [id number]: Atrial fibrillation, rate 146, normal axis, PVC, no ST elevation, borderline prolonged QTc at 493 Critical Care Note - Critical Care Note Total time excluding time spent on procedures (mins): 35 Comments: Rapid dysrhythmia treated with Cardizem infusion. Potential for hemodynamic compromise Discharge - Discharge Clinical Impression: Atrial fibrillation with RVR Condition: Stable Disposition: ADMITTED INPATIENT Admitting Provider: [facility] Unit Admitted: [facility] Referrals: JUAN CRAFT MD [Primary Care Provider] - Follow up as needed
[2018-02-09 10:41] LABS: ABSOLUTE EOSINOPHILS # (AUTO) 0.1 10^3/uL (0.0-0.6); ABSOLUTE LYMPHOCYTES (AUTO) 1.3 10^3/uL (0.5-4.7); ABSOLUTE MONOCYTES (AUTO) 0.4 10^3/uL (0.1-1.4); ABSOLUTE NEUT (AUTO) 4.1 10^3/uL (1.7-8.2); BASOPHILS % (AUTO) 0.8 % (0-2); HEMATOCRIT 33.1 % (36.0-47.0); LYMPHOCYTES % (AUTO) 22.1 % (13-45); MEAN CORPUSCULAR HEMOGLOBIN 32.3 pg (27.0-33.4); MEAN CORPUSCULAR HGB CONC 33.3 g/dL (32.0-36.0); MEAN CORPUSCULAR VOLUME 97 fl (80-97); PLATELET COUNT 212 10^3/uL (150-450); RED BLOOD COUNT 3.41 10^6/uL (3.72-5.28); RED CELL DISTRIBUTION WIDTH 14.2 % (11.5-14.0); SEGMENTED NEUTROPHILS % (AUTO) 68.1 % (42-78); TOTAL CELLS COUNTED % (AUTO) 100 %
[2018-02-09] MEDS ORDERED: NORMAL SALINE 1000 ML 1,000 ML IV ONE (10:42)
[2018-02-09 11:00] LABS: ALANINE AMINOTRANSFERASE 84 U/L (9-52); ALBUMIN 3.9 g/dL (3.5-5.0); ALKALINE PHOSPHATASE 103 U/L (38-126); ANION GAP 10 (5-19); ASPARTATE AMINO TRANSFERASE 84 U/L (14-36); BILIRUBIN,DIRECT 0.3 mg/dL (0.0-0.4); BILIRUBIN,TOTAL 0.6 mg/dL (0.2-1.3); BLOOD UREA NITROGEN 22 mg/dL (7-20); CALCIUM 9.5 mg/dL (8.4-10.2); CARBON DIOXIDE 27 mmol/L (22-30); CHLORIDE 106 mmol/L (98-107); GLUCOSE 122 mg/dL (75-110); POTASSIUM 3.8 mmol/L (3.6-5.0); SODIUM 143.4 mmol/L (137-145)
--- NOTE | 2018-02-09 11:15 | RADIOLOGY REPORT (SQ) ---
EXAM DESCRIPTION: CHEST SINGLE VIEW COMPLETED DATE/TIME: 02/09/2018 10:39 am REASON FOR STUDY: cough COMPARISON: 11/28/2017 EXAM PARAMETERS: NUMBER OF VIEWS: One view. TECHNIQUE: Single frontal radiographic view of the chest acquired. RADIATION DOSE: NA LIMITATIONS: None. FINDINGS: LUNGS AND PLEURA: No opacities, masses or pneumothorax. No pleural effusion. MEDIASTINUM AND HILAR STRUCTURES: No masses. Contour normal. HEART AND VASCULAR STRUCTURES: Unchanged mild cardiomegaly. Central pulmonary vasculature is normal. BONES: No acute findings. HARDWARE: Postsurgical changes of the mediastinum. Incompletely visualized total right shoulder arth roplasty. OTHER: No other significant finding. IMPRESSION: NO ACUTE RADIOGRAPHIC FINDING IN THE CHEST. TECHNICAL DOCUMENTATION: JOB ID: [id number] [employer]- All Rights Reserved Reading location - IP/workstation name: [email or web address]
[2018-02-09 12:05] LABS: INTERNATIONAL RATION (INR) 2.68; PROTHROMBIN TIME 29.8 SEC (11.4-15.4)
--- NOTE | 2018-02-09 14:30 | EKG REPORT ---
SEVERITY:- ABNORMAL ECG - ATRIAL FIBRILLATION MULTIFORM VENTRICULAR PREMATURE COMPLEXES BORDERLINE T ABNORMALITIES, ANT-LAT LEADS BORDERLINE PROLONGED QT INTERVAL : Confirmed by: Raffaele Walker 09-Feb-2018 14:29:38
[2018-02-09] MEDS ORDERED: BIOTIN 5000 MCG PO SCH (15:30)
[2018-02-09] MEDS ORDERED: (PENDING PHARMACY ID) (Calcium Carbonate [Calcium] 1,200 MG) PO SCH (15:30)
--- NOTE | 2018-02-09 15:35 | PDOC H&P ---
History of Present Illness Admission Date/PCP: 02/09/18 11:57 JUAN CRAFT MD History of Present Illness: ZENY PRITCHARD is a 78 year old female, she has a history of chronic atrial fibrillation, history of aortic valve replacement on chronic anticoagulation with Coumadin, she came to the emergency room for evaluation of palpitation, and cough. She was seen about [address] Craft in his office for evaluation of URI symptoms presently on p.o. antibiotic Keflex. She also complained of auditory hallucination. She denies any history of dementia, she admitted to memory loss sometime to recent events. She is very independent lady lives by herself. She stated that her friend told her previously she has dementia because she forgets things but she said her friend also forget things so she is not sure if her friend is just projecting her symptoms on her. In the emergency room she was treated with IV Cardizem when she arrived she had tachycardia with atrial fibrillation, the Cardizem drop the blood pressure. Past Medical History Cardiac Medical History: Reports: Atrial Fibrillation, Other - Aortic valve disease Musculoskeltal Medical History: Reports: Arthritis Hematology: Reports: Anemia Social History Smoking Status: Never Smoker Frequency of Alcohol Use: Rare Hx Recreational Drug Use: No Hx Prescription Drug Abuse: No Family History Family History: Hypertension Parental Family History Reviewed: Yes Children Family History Reviewed: Yes Sibling(s) Family History Reviewed.: Yes Medication/Allergy Home Medications: Cetirizine HCl [24Hour Allergy] 10 mg PO DAILY 03/16/17 Duloxetine HCl [Cymbalta] 30 mg PO DAILY 03/16/17 Warfarin Sodium [Coumadin 2.5 mg Tablet] 2.5 mg PO QHS 03/16/17 Beta-Carotene(A) W-C & E/Min [Ocutabs Vision Formula Tablet] 2 tab PO QHS Biotin 5,000 mcg PO DAILY 02/09/18 Calcium Carbonate [Calcium] 1,200 mg PO DAILY 02/09/18 Cholecalciferol (Vitamin D3) [Vitamin D3 5000 unit Capsule] 5,000 unit PO DAILY 02/09/18 Furosemide [Lasix 20 mg Tablet] 20 mg PO BID 02/09/18 Metoprolol Succinate [Toprol Xl] 25 mg PO DAILY 02/09/18 Pantoprazole Sodium [Protonix] 40 mg PO DAILY 02/09/18 Vitamin B Complex [B Complex] 1 each PO QHS 02/09/18 Allergies/Adverse Reactions: No Known Allergies Allergy (Verified 02/09/18 09:40) Review of Systems Constitutional: ABSENT: chills, fever(s), headache(s), weight gain, weight loss Eyes: ABSENT: visual disturbances Ears: ABSENT: hearing changes Cardiovascular: PRESENT: palpitations. ABSENT: chest pain, dyspnea on exertion , edema, orthropnea Respiratory: PRESENT: cough. ABSENT: hemoptysis Gastrointestinal: ABSENT: abdominal pain, constipation, diarrhea, hematemesis, hematochezia, nausea, vomiting Genitourinary: ABSENT: dysuria, hematuria Musculoskeletal: ABSENT: joint swelling Integumentary: ABSENT: rash, wounds Neurological: ABSENT: abnormal gait, abnormal speech, confusion, dizziness, focal weakness, syncope Psychiatric: ABSENT: anxiety, depression, homidical ideation, suicidal ideation Endocrine: ABSENT: cold intolerance, heat intolerance, menstrual abnormalities, polydipsia, polyuria Hematologic/Lymphatic: ABSENT: easy bleeding, easy bruising, lymphadenopathy Physical Exam Vital Signs: Temp Pulse Resp BP Pulse Ox 97.4 F 92 16 93/62 L 100 02/09/18 13:40 02/09/18 13:50 02/09/18 13:40 02/09/18 13:40 02/09/18 13:40 Intake & Output 02/08/18 02/09/18 02/10/18 06:59 06:59 06:59 Weight 84.1 kg General appearance: PRESENT: no acute distress, well-developed, well-nourished Head exam: PRESENT: atraumatic, normocephalic Eye exam: PRESENT: conjunctiva pink, EOMI, PERRLA Ear exam: PRESENT: normal external ear exam Mouth exam: PRESENT: moist, tongue midline Neck exam: PRESENT: full ROM Respiratory exam: PRESENT: clear to auscultation moni Cardiovascular exam: PRESENT: RRR, +S1, +S2, systolic murmur Pulses: PRESENT: normal dorsalis pedis pul, +2 pedal pulses bilateral Vascular exam: PRESENT: normal capillary refill GI/Abdominal exam: PRESENT: normal bowel sounds, soft Rectal exam: PRESENT: deferred Neurological exam: PRESENT: alert, awake, oriented to person, oriented to place , oriented to time, oriented to situation, CN II-XII grossly intact Psychiatric exam: PRESENT: appropriate affect, normal mood Skin exam: PRESENT: dry, intact, warm. ABSENT: cyanosis, rash Results Impressions: Chest X-Ray 02/09/18 10:04 IMPRESSION: NO ACUTE RADIOGRAPHIC FINDING IN THE CHEST. Assessment & Plan - Diagnosis (1) Atrial fibrillation with RVR Is this a current diagnosis for this admission?: Yes Plan: Patient is admitted for management, 2D echo ordered
[2018-02-09] MEDS: CHOLECALCIFEROL (D3) 1,000 UNIT TABLET PO SCH (17:02)
[2018-02-09] MEDS: METOPROLOL SUCCINATE 25 MG TAB.SR.24H PO SCH (17:02)
[2018-02-09] MEDS: CETIRIZINE 10 MG TABLET PO SCH (17:03)
[2018-02-09] MEDS: CALCIUM CARBONATE 500 MG TABLET PO SCH (17:03)
[2018-02-09] MEDS: LANSOPRAZOLE 30 MG TAB.RAP.DR PO SCH (17:03)
[2018-02-09] MEDS: DULOXETINE HCL 30 MG CAPSULE.DR PO SCH (17:03)
[2018-02-09] MEDS: FUROSEMIDE 20 MG TABLET PO SCH (17:04)
[2018-02-09 17:16] LABS: INTERNATIONAL RATION (INR) 2.65; PROTHROMBIN TIME 29.5 SEC (11.4-15.4)
[2018-02-09 17:27] LABS: LIPASE 153.9 U/L (23-300)
[2018-02-09 17:44] LABS: FREE T4 (FREE THYROXINE) 1.16 ng/dL (0.78-2.19)
[2018-02-09 17:58] LABS: THYROID STIMULATING HORMONE 1.77 uIU/mL (0.47-4.68)
[2018-02-09 18:21] LABS: APPEARANCE,URINE SLIGHTLY-CLOUDY; BILIRUBIN,URINE NEGATIVE (NEGATIVE); COLOR,URINE YELLOW; GLUCOSE, URINE NEGATIVE (NEGATIVE); KETONES,URINE TRACE mg/dL (NEGATIVE); LEUKOCYTE ESTERASE,URINE TRACE (NEGATIVE); NITRITE,URINE NEGATIVE (NEGATIVE); PROTEIN,URINE NEGATIVE (NEGATIVE); UROBILINOGEN,URINE NEGATIVE mg/dL (<2.0)
[2018-02-09] MEDS ORDERED: AMIODARONE HCL 150 MG in DEXTROSE 5%-WATER 100 ML IV ONE (18:45)
[2018-02-09] MEDS ORDERED: AMIODARONE HCL INJ 150 MG/3 ML VIAL IV ONE ×2 (18:53→19:22)
[2018-02-09] MEDS: DEXTROSE 5%-WATER 500 ML with AMIODARONE HCL 900 MG IV PRN ×2 (19:36)
--- NOTE | 2018-02-09 19:57 | XCELERA REPORT ---
[address] [address] Transthoracic Echocardiogram Report Name: ZENY PRITCHARD V Age: 78 yrs Gender: Female : 1940 Patient Status: Inpatient Patient Location: [address] [place] [address] Study Date: 02/09/2018 04:06 PM Height: 54 in Weight: 185 lb BSA: 1.7 m2 BP: 6/ mmHg Procedure: A complete two-dimensional transthoracic echocardiogram was performed (2D, M-mode, spectral and color flow Doppler). The study was technically difficult with many images being suboptimal in quality. Reason For Study: atrial fibrillation Ordering Physician: THANG PEREZ Performed By: Ashish Dewey Interpretation Summary The study was technically difficult with many images being suboptimal in quality. The Ejection Fraction estimate is 50-55% LV diastolic function could not be adequately assessed due to atrial fibrilation. There is mild concentric left ventricular hypertrophy. The left ventricle is grossly normal size. Regional wall motion abnormalities cannot be excluded due to limited visualization. The right ventricle is mildly dilated. Right ventricular function cannot be assessed due to poor image quality. The right atrium is moderately dilated. Borderline left atrial enlargement. There is a moderate to severe amount of mitral regurgitation There is no mitral valve stenosis. There is no aortic valve stenosis No aortic regurgitation is present. The aortic valve is not well visualized secondary to technical limitations There is a severe amount of tricuspid regurgitation There is moderate pulmonary hypertension by echo Right ventricular systolic pressure is estimated to be elevated at 40-50mmHg. Minimal pericardial effusion. MMode/2D Measurements & Calculations RVDd: 3.0 cm LVIDd: 3.9 cm FS: 20.0 % Ao root diam: 1.8 cm IVSd: 1.0 cm LVIDs: 3.1 cm EDV(Teich): 67.0 ml Ao root area: 2.4 cm2 LVPWd: 1.3 cm ESV(Teich): 39.2 ml LA dimension: 3.1 cm EF(Teich): 41.5 % LVOT diam: 1.0 cm LVOT area: 0.82 cm2 Doppler Measurements & Calculations MV E max edwin: Ao V2 max: LV V1 max PG: MR max edwin: 108.8 cm/sec 219.9 cm/sec 23.4 mmHg 450.0 cm/sec Ao max PG: LV V1 max: MR max P.3 mmHg 241.9 cm/sec 81.0 mmHg SINAN(V,D): 0.90 cm2 PA V2 max: TR max edwin: 75.8 cm/sec 305.4 cm/sec PA max P.3 mmHg TR max P.3 mmHg Left Ventricle The left ventricle is grossly normal size. There is mild concentric left ventricular hypertrophy. The Ejection Fraction estimate is 50-55%. LV diastolic function could not be adequately assessed due to atrial fibrilation. Regional wall motion abnormalities cannot be excluded due to limited visualization. Right Ventricle The right ventricle is mildly dilated. Right ventricular function cannot be assessed due to poor image quality. Atria The right atrium is moderately dilated. Borderline left atrial enlargement. Interarterial septum not well visualized and not well dopplered. Cannot comment on ASD/PFO presence. Mitral Valve The mitral valve leaflets are sclerotic, but show no functional abnormalities. There is no mitral valve stenosis. There is a moderate to severe amount of mitral regurgitation. Aortic Valve The aortic valve is not well visualized secondary to technical limitations. The aortic valve opens well. There is no aortic valve stenosis. No aortic regurgitation is present. Tricuspid Valve The tricuspid valve is not well visualized secondary to technical limitations. There is no tricuspid stenosis. There is a severe amount of tricuspid regurgitation. There is moderate pulmonary hypertension by echo. Right ventricular systolic pressure is estimated to be elevated at 40-50mmHg. Pulmonic Valve The pulmonic valve is not well visualized. Great Vessels The aortic root is not well visualized. The inferior vena cava was not well visualized. Effusions Minimal pericardial effusion. : THANG PEREZ Raffaele Walekr
[2018-02-09] MEDS: CEPHALEXIN 500 MG CAPSULE PO SCH (21:12)
[2018-02-09] MEDS: MULTIVIT-STRESS FORMULA/ZINC TABLET PO SCH (21:12)
[2018-02-09] MEDS: WARFARIN SODIUM 2.5 MG TABLET PO SCH (21:13)
[2018-02-09] MEDS ORDERED: [UNRECOGNIZED DRUG - OTHER] PO SCH (22:00)
[2018-02-10 04:53] LABS: ABSOLUTE BASOPHILS # (AUTO) 0.1 10^3/uL (0.0-0.2); ABSOLUTE EOSINOPHILS # (AUTO) 0.2 10^3/uL (0.0-0.6); ABSOLUTE LYMPHOCYTES (AUTO) 1.7 10^3/uL (0.5-4.7); ABSOLUTE MONOCYTES (AUTO) 0.5 10^3/uL (0.1-1.4); ABSOLUTE NEUT (AUTO) 4.9 10^3/uL (1.7-8.2); BASOPHILS % (AUTO) 0.9 % (0-2); EOSINOPHILS % (AUTO) 2.9 % (0-6); HEMATOCRIT 33.2 % (36.0-47.0); HEMOGLOBIN 11.1 g/dL (12.0-15.5); LYMPHOCYTES % (AUTO) 22.7 % (13-45); MEAN CORPUSCULAR HEMOGLOBIN 32.4 pg (27.0-33.4); MEAN CORPUSCULAR HGB CONC 33.6 g/dL (32.0-36.0); MEAN CORPUSCULAR VOLUME 97 fl (80-97); MONOCYTES % (AUTO) 6.5 % (3-13); PLATELET COUNT 198 10^3/uL (150-450); RED BLOOD COUNT 3.44 10^6/uL (3.72-5.28); RED CELL DISTRIBUTION WIDTH 14.5 % (11.5-14.0); TOTAL CELLS COUNTED % (AUTO) 100 %; WHITE BLOOD COUNT 7.4 10^3/uL (4.0-10.5)
[2018-02-10 04:58] LABS: INTERNATIONAL RATION (INR) 2.89; PROTHROMBIN TIME 31.6 SEC (11.4-15.4)
[2018-02-10 04:59] LABS: PARTIAL THROMBOPLASTIN TIME 59.1 SEC (23.5-35.8)
[2018-02-10] MEDS: CEPHALEXIN 500 MG CAPSULE PO SCH ×3 (05:13→21:14)
[2018-02-10] MEDS: LANSOPRAZOLE 30 MG TAB.RAP.DR PO SCH (05:14)
[2018-02-10 05:49] LABS: ALANINE AMINOTRANSFERASE 85 U/L (9-52); ALBUMIN 3.7 g/dL (3.5-5.0); ALKALINE PHOSPHATASE 98 U/L (38-126); ANION GAP 15 (5-19); ASPARTATE AMINO TRANSFERASE 69 U/L (14-36); BILIRUBIN,DIRECT 0.3 mg/dL (0.0-0.4); BILIRUBIN,TOTAL 0.6 mg/dL (0.2-1.3); BLOOD UREA NITROGEN 23 mg/dL (7-20); CALCIUM 9.3 mg/dL (8.4-10.2); CARBON DIOXIDE 22 mmol/L (22-30); CHLORIDE 105 mmol/L (98-107); CHOLESTEROL 114.12 mg/dL (0-200); DIRECT LDL 65 mg/dL (<100); GLUCOSE 102 mg/dL (75-110); SODIUM 141.6 mmol/L (137-145); TOTAL PROTEIN 6.4 g/dL (6.3-8.2); TRIGLYCERIDES 137 mg/dL (<150)
[2018-02-10] MEDS: DULOXETINE HCL 30 MG CAPSULE.DR PO SCH (09:27)
[2018-02-10] MEDS: FUROSEMIDE 20 MG TABLET PO SCH ×2 (09:28→17:29)
[2018-02-10] MEDS: METOPROLOL SUCCINATE 25 MG TAB.SR.24H PO SCH (09:28)
[2018-02-10] MEDS: CALCIUM CARBONATE 500 MG TABLET PO SCH (09:28)
[2018-02-10] MEDS: CHOLECALCIFEROL (D3) 1,000 UNIT TABLET PO SCH (09:29)
[2018-02-10] MEDS: CETIRIZINE 10 MG TABLET PO SCH (09:30)
[2018-02-10] MEDS ORDERED: LEVALBUTEROL HCL NEB 1.25 MG/3 ML AMPUL NEB PRN (15:02)
--- NOTE | 2018-02-10 15:02 | PDOC PROGRESS REPORT ---
Subjective Progress Note for:: 02/10/18 Subjective:: Patient was admitted yesterday when she presented with atrial fibrillation with RVR, last night she was started on amiodarone, initially she was on Cardizem infusion but the blood pressure was low, this was changed to amiodarone. Today she was seen around she is coughing and she is wheezing, she has no history of smoking, chest x-ray did not show any acute infiltrate there is no evidence of CHF, she may need a PFT to rule out obstructive lung disease Reason For Visit: ATRIAL FIBRILLATION WITH RVR,H/O AORTIC VALVE Physical Exam Vital Signs: Temp Pulse Resp BP Pulse Ox 97.5 F 120 H 20 90/68 L 100 02/10/18 11:56 02/10/18 14:14 02/10/18 11:56 02/10/18 14:14 02/10/18 11:56 Intake & Output 02/09/18 02/10/18 02/11/18 06:59 06:59 06:59 Intake Total 604 355 Balance 604 355 Weight 80.4 kg General appearance: PRESENT: no acute distress Eye exam: PRESENT: PERRLA Respiratory exam: PRESENT: wheezes Cardiovascular exam: PRESENT: +S1, +S2 GI/Abdominal exam: PRESENT: soft Neurological exam: PRESENT: alert Results Laboratory Results: 02/10/18 04:35 02/10/18 04:35 02/09/18 02/09/18 02/09/18 16:55 16:55 16:55 WBC RBC Hgb Hct MCV MCH MCHC RDW Plt Count Seg Neutrophils % Lymphocytes % Monocytes % Eosinophils % Basophils % Absolute Neutrophils Absolute Lymphocytes Absolute Monocytes Absolute Eosinophils Absolute Basophils Sodium Potassium Chloride Carbon Dioxide Anion Gap BUN Creatinine Est GFR ( Amer) Est GFR (Non-Af Amer) Glucose Calcium Magnesium Total Bilirubin AST ALT Alkaline Phosphatase Ammonia < 8.7 L Total Protein Albumin Triglycerides Cholesterol LDL Cholesterol Direct VLDL Cholesterol HDL Cholesterol Amylase 59 Lipase 153.9 TSH 1.77 Free T4 1.16 Urine Color Urine Appearance Urine pH Ur Specific [place] Urine Protein Urine Glucose (UA) Urine Ketones Urine Blood Urine Nitrite Ur Leukocyte Esterase Urine WBC (Auto) Urine RBC (Auto) 02/09/18 02/10/18 02/10/18 18:00 04:35 04:35 WBC 7.4 RBC 3.44 L Hgb 11.1 L Hct 33.2 L MCV 97 MCH 32.4 MCHC 33.6 RDW 14.5 H Plt Count 198 Seg Neutrophils % 67.0 Lymphocytes % 22.7 Monocytes % 6.5 Eosinophils % 2.9 Basophils % 0.9 Absolute Neutrophils 4.9 Absolute Lymphocytes 1.7 Absolute Monocytes 0.5 Absolute Eosinophils 0.2 Absolute Basophils 0.1 Sodium 141.6 Potassium 4.0 Chloride 105 Carbon Dioxide 22 Anion Gap 15 BUN 23 H Creatinine 1.09 Est GFR ( Amer) 58 L Est GFR (Non-Af Amer) 48 L Glucose 102 Calcium 9.3 Magnesium 2.1 Total Bilirubin 0.6 AST 69 H ALT 85 H Alkaline Phosphatase 98 Ammonia Total Protein 6.4 Albumin 3.7 Triglycerides 137 Cholesterol 114.12 LDL Cholesterol Direct 65 VLDL Cholesterol 27.0 HDL Cholesterol 33 L Amylase Lipase TSH Free T4 Urine Color YELLOW Urine Appearance SLIGHTLY-CLOUDY Urine pH 5.0 Ur Specific [place] 1.020 Urine Protein NEGATIVE Urine Glucose (UA) NEGATIVE Urine Ketones TRACE H Urine Blood NEGATIVE Urine Nitrite NEGATIVE Ur Leukocyte Esterase TRACE H Urine WBC (Auto) 2 Urine RBC (Auto) 1 02/09/18 02/09/18 02/10/18 16:50 22:30 04:35 Troponin I < 0.012 < 0.012 < 0.012 Assessment & Plan - Diagnosis (1) Atrial fibrillation with RVR Is this a current diagnosis for this admission?: Yes Plan: Continue IV amiodarone blood pressure still relatively low, 2D echo is ordered yet to be done hopefully tomorrow (2) Wheezing Is this a current diagnosis for this admission?: Yes Plan: The differential diagnosis will include obstructive lung disease, CHF, 2D echo ordered result is pending, ordered for lung function test, spirometry DLCO and lung volume, start Xopenex as needed, trelegy
--- NOTE | 2018-02-10 15:05 | RADIOLOGY REPORT (SQ) ---
EXAM DESCRIPTION: CHEST SINGLE VIEW COMPLETED DATE/TIME: 02/10/2018 2:46 pm REASON FOR STUDY: wheezing and SOB COMPARISON: Chest x-ray 02/09/2018. EXAM PARAMETERS: NUMBER OF VIEWS: One view. TECHNIQUE: Single frontal radiographic view of the chest acquired. RADIATION DOSE: NA LIMITATIONS: None. FINDINGS: LUNGS AND PLEURA: No consolidation, pneumothorax or pleural effusion. MEDIASTINUM AND HILAR STRUCTURES: No masses. Contour normal. HEART AND VASCULAR STRUCTURES: The heart remains enlarged. There is no overt vascular congestion. BONES: Orthopedic hardware at the proximal right humerus. HARDWARE: Median sternotomy wires are present. IMPRESSION: Cardiomegaly. Otherwise, no acute radiographic finding in the chest. TECHNICAL DOCUMENTATION: JOB ID: [id number] [employer]- All Rights Reserved Reading location - IP/workstation name: [email or web address]
[2018-02-10] MEDS ORDERED: LEVALBUTEROL HCL NEB 0.63 MG/3 ML AMPUL NEB PRN (15:57)
[2018-02-10] MEDS ORDERED: LEVALBUTEROL HCL NEB 0.63 MG/3 ML AMPUL NEB SCH (17:00)
[2018-02-10] MEDS: FLUTICASONE/UMECLIDIN/VILANTER 100-62.5-25 MCG/DOSE IH SCH (17:29)
[2018-02-10] MEDS ORDERED: ACETAMINOPHEN 325 MG TABLET PO PRN (20:07)
[2018-02-10] MEDS: DEXTROSE 5%-WATER 500 ML with AMIODARONE HCL 900 MG IV PRN ×2 (20:25)
[2018-02-10] MEDS: MULTIVIT-STRESS FORMULA/ZINC TABLET PO SCH (21:14)
[2018-02-10] MEDS: WARFARIN SODIUM 2.5 MG TABLET PO SCH (21:14)
[2018-02-11 04:56] LABS: ABSOLUTE BASOPHILS # (AUTO) 0.1 10^3/uL (0.0-0.2); ABSOLUTE EOSINOPHILS # (AUTO) 0.2 10^3/uL (0.0-0.6); ABSOLUTE LYMPHOCYTES (AUTO) 2.3 10^3/uL (0.5-4.7); ABSOLUTE MONOCYTES (AUTO) 0.5 10^3/uL (0.1-1.4); ABSOLUTE NEUT (AUTO) 5.7 10^3/uL (1.7-8.2); BASOPHILS % (AUTO) 0.9 % (0-2); EOSINOPHILS % (AUTO) 2.2 % (0-6); HEMATOCRIT 31.6 % (36.0-47.0); HEMOGLOBIN 10.6 g/dL (12.0-15.5); LYMPHOCYTES % (AUTO) 26.2 % (13-45); MEAN CORPUSCULAR HEMOGLOBIN 32.5 pg (27.0-33.4); MEAN CORPUSCULAR HGB CONC 33.7 g/dL (32.0-36.0); MEAN CORPUSCULAR VOLUME 96 fl (80-97); MONOCYTES % (AUTO) 5.3 % (3-13); PLATELET COUNT 194 10^3/uL (150-450); RED BLOOD COUNT 3.28 10^6/uL (3.72-5.28); RED CELL DISTRIBUTION WIDTH 14.5 % (11.5-14.0); SEGMENTED NEUTROPHILS % (AUTO) 65.4 % (42-78); TOTAL CELLS COUNTED % (AUTO) 100 %; WHITE BLOOD COUNT 8.7 10^3/uL (4.0-10.5)
[2018-02-11 05:05] LABS: INTERNATIONAL RATION (INR) 3.23; PROTHROMBIN TIME 34.5 SEC (11.4-15.4)
[2018-02-11 05:06] LABS: PARTIAL THROMBOPLASTIN TIME 65.4 SEC (23.5-35.8)
[2018-02-11 05:13] LABS: ALANINE AMINOTRANSFERASE 78 U/L (9-52); ALBUMIN 3.4 g/dL (3.5-5.0); ALKALINE PHOSPHATASE 97 U/L (38-126); ANION GAP 13 (5-19); ASPARTATE AMINO TRANSFERASE 55 U/L (14-36); BILIRUBIN,DIRECT 0.2 mg/dL (0.0-0.4); BILIRUBIN,TOTAL 0.5 mg/dL (0.2-1.3); BLOOD UREA NITROGEN 20 mg/dL (7-20); CALCIUM 8.8 mg/dL (8.4-10.2); CARBON DIOXIDE 25 mmol/L (22-30); CHLORIDE 103 mmol/L (98-107); GLUCOSE 98 mg/dL (75-110); POTASSIUM 3.6 mmol/L (3.6-5.0); SODIUM 141.1 mmol/L (137-145); TOTAL PROTEIN 6.2 g/dL (6.3-8.2)
[2018-02-11] MEDS: CEPHALEXIN 500 MG CAPSULE PO SCH ×3 (05:20→21:32)
[2018-02-11] MEDS: LANSOPRAZOLE 30 MG TAB.RAP.DR PO SCH (05:20)
--- NOTE | 2018-02-11 08:42 | PDOC PROGRESS REPORT ---
Subjective Progress Note for:: 02/11/18 Subjective:: pt is doing fair pt was admitted for afib denied any chest pain no sob Reason For Visit: ATRIAL FIBRILLATION WITH RVR,H/O AORTIC VALVE Physical Exam Vital Signs: Temp Pulse Resp BP Pulse Ox 97.4 F 114 H 20 102/69 97 02/11/18 08:02 02/11/18 08:02 02/11/18 08:02 02/11/18 08:02 02/11/18 08:02 Intake & Output 02/10/18 02/11/18 02/12/18 06:59 06:59 06:59 Intake Total 604 1236 Balance 604 1236 Weight 80.4 kg 81.7 kg General appearance: PRESENT: no acute distress, well-developed, well-nourished Head exam: PRESENT: atraumatic, normocephalic Eye exam: PRESENT: conjunctiva pink, EOMI, PERRLA. ABSENT: scleral icterus Ear exam: PRESENT: normal external ear exam Mouth exam: PRESENT: moist, tongue midline Neck exam: PRESENT: full ROM. ABSENT: carotid bruit, JVD, lymphadenopathy, thyromegaly Respiratory exam: PRESENT: clear to auscultation moni Cardiovascular exam: PRESENT: RRR. ABSENT: diastolic murmur, rubs, systolic murmur Pulses: PRESENT: normal dorsalis pedis pul, +2 pedal pulses bilateral Vascular exam: PRESENT: normal capillary refill GI/Abdominal exam: PRESENT: normal bowel sounds, soft. ABSENT: distended, guarding, mass, organolmegaly, rebound, tenderness Rectal exam: PRESENT: deferred Neurological exam: PRESENT: alert, awake, oriented to person, oriented to place , oriented to time, oriented to situation, CN II-XII grossly intact. ABSENT: motor sensory deficit Psychiatric exam: PRESENT: appropriate affect, normal mood. ABSENT: homicidal ideation, suicidal ideation Skin exam: PRESENT: dry, intact, warm. ABSENT: cyanosis, rash Results Laboratory Results: 02/11/18 04:08 02/11/18 04:08 02/11/18 02/11/18 04:08 04:08 WBC 8.7 RBC 3.28 L Hgb 10.6 L Hct 31.6 L MCV 96 MCH 32.5 MCHC 33.7 RDW 14.5 H Plt Count 194 Seg Neutrophils % 65.4 Lymphocytes % 26.2 Monocytes % 5.3 Eosinophils % 2.2 Basophils % 0.9 Absolute Neutrophils 5.7 Absolute Lymphocytes 2.3 Absolute Monocytes 0.5 Absolute Eosinophils 0.2 Absolute Basophils 0.1 Sodium 141.1 Potassium 3.6 Chloride 103 Carbon Dioxide 25 Anion Gap 13 BUN 20 Creatinine 0.95 Est GFR ( Amer) > 60 Est GFR (Non-Af Amer) 57 L Glucose 98 Calcium 8.8 Magnesium 2.1 Total Bilirubin 0.5 AST 55 H ALT 78 H Alkaline Phosphatase 97 Total Protein 6.2 L Albumin 3.4 L 02/09/18 02/09/18 02/10/18 16:50 22:30 04:35 Troponin I < 0.012 < 0.012 < 0.012 Impressions: Chest X-Ray 02/10/18 00:00 IMPRESSION: Cardiomegaly. Otherwise, no acute radiographic finding in the chest. Assessment & Plan - Diagnosis (1) Atrial fibrillation with RVR Is this a current diagnosis for this admission?: Yes Plan: d/c iv amidarone drip\ start po amiodarone consult cardilogy cont coumadin (2) Anemia Qualifiers: Anemia type: iron deficiency Iron deficiency anemia type: chronic blood loss Qualified Code(s): D50.0 - Iron deficiency anemia secondary to blood loss (chronic) Is this a current diagnosis for this admission?: Yes Plan: stable - Time Time Spent with patient: 15-24 minutes Medications reviewed and adjusted accordingly: Yes Anticipated discharge: Home Within: Other - Inpatient Certification Based on my medical assessment, after consideration of the patient's comorbidities, presenting symptoms, or acuity I expect that the services needed warrant INPATIENT care.: Yes I certify that my determination is in accordance with my understanding of Medicare's requirements for reasonable and necessary INPATIENT services [42 CFR 412.3e].: Yes Medical Necessity: Need Close Monitoring Due to Risk of Patient Decompensation Post Hospital Care: D/C [employer]ation Technician Documentation - Plan Summary Plan Summary: cont curr med
[2018-02-11] MEDS: METOPROLOL SUCCINATE 25 MG TAB.SR.24H PO SCH (09:04)
[2018-02-11] MEDS: CETIRIZINE 10 MG TABLET PO SCH (09:04)
[2018-02-11] MEDS: CALCIUM CARBONATE 500 MG TABLET PO SCH (09:04)
[2018-02-11] MEDS: DULOXETINE HCL 30 MG CAPSULE.DR PO SCH (09:04)
[2018-02-11] MEDS: CHOLECALCIFEROL (D3) 1,000 UNIT TABLET PO SCH (09:04)
[2018-02-11] MEDS: AMIODARONE HCL 200 MG TABLET PO SCH ×2 (09:04→17:00)
[2018-02-11] MEDS: FUROSEMIDE 20 MG TABLET PO SCH ×2 (09:05→09:18)
[2018-02-11] MEDS: FLUTICASONE/UMECLIDIN/VILANTER 100-62.5-25 MCG/DOSE IH SCH (09:07)
--- NOTE | 2018-02-11 09:14 | PDOC CONSULTATION ---
Consultation Consult Date: 02/11/18 Attending physician:: JUAN CRAFT Consult reason:: Atrial fibrillation History of Present Illness Admission Date/PCP: 02/09/18 11:57 JUAN CRAFT MD Patient complains of: Palpitations History of Present Illness: ZENY PRITCHARD is a 78 year old female she has a history of atrial fibrillation , history of aortic valve replacement on chronic anticoagulation with Coumadin, she came to the emergency room for evaluation of palpitation, and cough. She was seen about [address] Craft in his office for evaluation of URI symptoms presently on p.o. antibiotic Keflex. She also complained of auditory hallucination. She denies any history of dementia, she admitted to memory loss sometime to recent events. She is very independent lady lives by herself. She stated that her friend told her previously she has dementia because she forgets things but she said her friend also forget things so she is not sure if her friend is just projecting her symptoms on her. In the emergency room she was treated with IV Cardizem when she arrived she had tachycardia with atrial fibrillation, the Cardizem drop the blood pressure. This history was reviewed with the patient and confirmed. Patient cough and cold symptoms has improved. Patient was apparently placed on amiodarone drip. Today she is being converted to p.o. Past Medical History Cardiac Medical History: Reports: Atrial Fibrillation, Congestive Heart Failure , Other - Aortic valve disease Musculoskeltal Medical History: Reports: Arthritis Hematology: Reports: Anemia Past Surgical History Past Surgical History: Reports: Valve Replacement - Mechanical aortic valve Social History Information Source: Patient Lives with: Alone Smoking Status: Never Smoker Frequency of Alcohol Use: Rare Hx Recreational Drug Use: No Hx Prescription Drug Abuse: No - Advance Directive Resuscitation Status: Full Code Family History Family History: Hypertension Parental Family History Reviewed: Yes Children Family History Reviewed: Yes Sibling(s) Family History Reviewed.: Yes Medication/Allergy Home Medications: Cetirizine HCl [24Hour Allergy] 10 mg PO DAILY 03/16/17 Duloxetine HCl [Cymbalta] 30 mg PO DAILY 03/16/17 Warfarin Sodium [Coumadin 2.5 mg Tablet] 2.5 mg PO QHS 03/16/17 Beta-Carotene(A) W-C & E/Min [Ocutabs Vision Formula Tablet] 2 tab PO QHS Biotin 5,000 mcg PO DAILY 02/09/18 Calcium Carbonate [Calcium] 1,200 mg PO DAILY 02/09/18 Cholecalciferol (Vitamin D3) [Vitamin D3 5000 unit Capsule] 5,000 unit PO DAILY 02/09/18 Furosemide [Lasix 20 mg Tablet] 20 mg PO BID 02/09/18 Metoprolol Succinate [Toprol Xl] 25 mg PO DAILY 02/09/18 Pantoprazole Sodium [Protonix] 40 mg PO DAILY 02/09/18 Vitamin B Complex [B Complex] 1 each PO QHS 02/09/18 Amiodarone HCl [Cordarone 200 mg Tablet] 100 mg PO BID #60 tablet 02/12/18 Cephalexin Monohydrate [Keflex 500 mg Capsule] 500 mg PO Q8 #21 capsule Allergies/Adverse Reactions: No Known Allergies Allergy (Verified 02/09/18 09:40) Review of Systems Review of Systems: Please see history of present illness and past medical history as wall. Constitutional: Recent cough and cold, low-grade fever reported.. Head : No recent chronic headaches, recent head injury. Eyes: No recent eye pain, diplopia, redness, discharge, acute visual changes. Ears: No recent chronic ear pain, acute hearing loss, ear discharge. Oral cavity: No recent ulcerations, bleeding, oral cavity discomfort. Neck: No recent acute neck pain reported. Hematologic: No recent easy bruising or bleeding. Lymphatic: No recent lymph node enlargement reported. Cardiovascular system review: See history of present illness. Respiratory system review: No hemoptysis or blood clots in the lungs reported. Mild Shortness of breath on exertion Gastrointestinal system review: Negative for any recent acute hematemesis, melena. Genitourinary system review: No recent acute or chronic hematuria, flank pain, UTI etc. reported. Skin system review: Negative for any recent abnormal bruising, no rash, no pruritus reported. Neurologic: No prior history of strokes, mini strokes, seizure disorder. Psychologic: No history of major psychosis or major depression reported. Musculoskeletal: Minor aches and pains reported. No acute joint swelling reported. Endocrine: No recent polyuria, polydipsia, recent heat or cold intolerance. Physical Exam Vital Signs: Temp Pulse Resp BP Pulse Ox 97.4 F 114 H 20 102/69 97 02/11/18 08:02 02/11/18 08:02 02/11/18 08:02 02/11/18 08:02 02/11/18 08:02 Intake & Output 02/10/18 02/11/18 02/12/18 06:59 06:59 06:59 Intake Total 604 1236 Balance 604 1236 Weight 80.4 kg 81.7 kg Exam: GENERAL: well-nourished and in no acute distress. Alert and oriented x3 HEAD: Atraumatic, normocephalic. EYES: MAURA, sclera anicteric, conjunctiva are normal. ENT: Moist mucous membranes. No oral ulcerations or bleeding gums noted. No obvious ear, nose or throat abnormalities noted. NECK: supple without lymphadenopathy. Trachea is central. No cervical or axillary lymphadenopathy noted. Carotids are 2+, JVD WNL LUNGS: Breath sounds clear bilaterally. No wheezes rales or rhonchi noted. No significant dullness noted on percussion. CHEST: Palpation of the chest wall shows no significant chest wall tenderness. 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 Prosthetic valve sounds are crisp. ABDOMEN: Soft, no significant tenderness appreciated, normoactive bowel sounds. No guarding, no rebound. No rigidity noted . No masses appreciated. EXTREMITIES: Pedal pulses are 1-2+, no calf tenderness noted. No clubbing or cyanosis. negative pedal edema noted NEUROLOGICAL: Focused neurological exam showed no significant neurologic deficit. Normal speech, no focal weakness appreciated. PSYCH: Normal mood, normal affect. Judgment and insight within normal limits. SKIN: No significant ecchymosis, skin is noted to be warm. MUSCULOSKELETAL EXAM: No significant acute joint swelling noted. Results Laboratory Results: 02/11/18 04:08 02/11/18 04:08 02/11/18 02/11/18 04:08 04:08 WBC 8.7 RBC 3.28 L Hgb 10.6 L Hct 31.6 L MCV 96 MCH 32.5 MCHC 33.7 RDW 14.5 H Plt Count 194 Seg Neutrophils % 65.4 Lymphocytes % 26.2 Monocytes % 5.3 Eosinophils % 2.2 Basophils % 0.9 Absolute Neutrophils 5.7 Absolute Lymphocytes 2.3 Absolute Monocytes 0.5 Absolute Eosinophils 0.2 Absolute Basophils 0.1 Sodium 141.1 Potassium 3.6 Chloride 103 Carbon Dioxide 25 Anion Gap 13 BUN 20 Creatinine 0.95 Est GFR ( Amer) > 60 Est GFR (Non-Af Amer) 57 L Glucose 98 Calcium 8.8 Magnesium 2.1 Total Bilirubin 0.5 AST 55 H ALT 78 H Alkaline Phosphatase 97 Total Protein 6.2 L Albumin 3.4 L 02/09/18 02/09/18 02/10/18 16:50 22:30 04:35 Troponin I < 0.012 < 0.012 < 0.012 EKG Comments: Atrial fibrillation with rapid ventricular response Impressions: Chest X-Ray 02/10/18 00:00 IMPRESSION: Cardiomegaly. Otherwise, no acute radiographic finding in the chest. Assessment & Plan - Diagnosis (1) Atrial fibrillation with RVR Is this a current diagnosis for this admission?: Yes (2) Valvular heart disease Is this a current diagnosis for this admission?: Yes (3) Gastroesophageal reflux disease Qualifiers: Esophagitis presence: esophagitis presence not specified Qualified Code(s) : K21.9 - Gastro-esophageal reflux disease without esophagitis Is this a current diagnosis for this admission?: Yes (4) Memory loss Is this a current diagnosis for this admission?: Yes - Notes Notes: Atrial fibrillation: Agree with amiodarone therapy. Patient already on chronic anticoagulation. For better rate control have started back patient on metoprolol succinate 25 mg p.o. daily which she was taking at home. Have also reduced her Lasix to 20 mg p.o. daily which patient had been taking at home. Continue chronic anticoagulation with Coumadin. Patient can be followed in my office Coumadin clinic for this reason. Valvular heart disease: Patient has a history of mechanical aortic valve. Patient also has moderate mitral and moderate tricuspid regurgitation, RV was noted to be mildly dilated. This is from echo report obtained in the hospital performed in November 2017. Currently seems relatively well compensated. Patient to continue with chronic Coumadin therapy. Gastroesophageal reflux: Continue patient on proton pump therapy. At home patient was on Protonix. Memory loss: Patient has been noted to have this condition. Patient was started on Cymbalta at 30 mg in the office previously as depression could masquerade as memory loss in this age group. Recommend resuming that. Patient otherwise generally stable. - Time Time Spent: 30 to 50 Minutes - More than 50% of the time spent coordinating care , discussing management plans with involved caregivers. Management plans discussed with involved personnels. Medical decision making was of moderate to high complexity, patient's has multiple comorbidities. Medications reviewed and adjusted accordingly: Yes
[2018-02-11] MEDS ORDERED: METOPROLOL SUCCINATE 25 MG TAB.SR.24H PO SCH (10:00)
[2018-02-11] MEDS ORDERED: FUROSEMIDE 40 MG TABLET PO SCH (10:00)
[2018-02-11 14:14] LABS: APPEARANCE,URINE SLIGHTLY-CLOUDY; BILIRUBIN,URINE NEGATIVE (NEGATIVE); COLOR,URINE YELLOW; GLUCOSE, URINE NEGATIVE (NEGATIVE); KETONES,URINE NEGATIVE (NEGATIVE); LEUKOCYTE ESTERASE,URINE LARGE (NEGATIVE); NITRITE,URINE NEGATIVE (NEGATIVE); PROTEIN,URINE NEGATIVE (NEGATIVE); URINE SPECIFIC GRAVITY 1.009; UROBILINOGEN,URINE NEGATIVE mg/dL (<2.0)
--- NOTE | 2018-02-11 15:00 | RADIOLOGY REPORT (SQ) ---
EXAM DESCRIPTION: U/S ABDOMEN COMPLETE W/O DOP COMPLETED DATE/TIME: 02/11/2018 2:49 pm REASON FOR STUDY: abnormal lft COMPARISON: None. TECHNIQUE: Dynamic and static grayscale images acquired of the abdomen and recorded on PACS. Additio nal selected color Doppler and spectral images recorded. LIMITATIONS: Study is limited secondary to body habitus and large amount of bowel gas. FINDINGS: PANCREAS: Obscured by overlying bowel gas. LIVER: The liver is echogenic consistent with fatty infiltration. LIVER VASCULATURE: Normal directional flow of the main portal vein and hepatic veins. GALLBLADDER: The gallbladder is not identified. ULTRASOUND-DETECTED PEDRO'S SIGN: Negative. INTRAHEPATIC DUCTS AND COMMON DUCT: CBD and intrahepatic ducts normal caliber. No filling defects.INF ERIOR VENA CAVA: Normal flow. AORTA: Obscured by overlying bowel gas. RIGHT KIDNEY: Normal size. Normal echogenicity. No solid or suspicious masses. No hydronephros is. No calcifications. LEFT KIDNEY: Normal size. Normal echogenicity. No solid or suspicious masses. No hydronephrosi s. No calcifications. SPLEEN: Normal size. No solid masses. PERITONEAL AND PLEURAL SPACES: No ascites or effusions. OTHER: No other significant finding. IMPRESSION: Limited study secondary to body habitus and overlying bowel gas. The liver is echogenic consistent with fatty infiltration. The gallbladder is not identified. TECHNICAL DOCUMENTATION: JOB ID: [id number] [employer] All Rights Reserved Reading location - IP/workstation name: [email or web address]
[2018-02-11] MEDS: MULTIVIT-STRESS FORMULA/ZINC TABLET PO SCH (21:31)
[2018-02-11] MEDS: WARFARIN SODIUM 2.5 MG TABLET PO SCH (21:31)
[2018-02-12 05:06] LABS: ABSOLUTE BASOPHILS # (AUTO) 0.1 10^3/uL (0.0-0.2); ABSOLUTE EOSINOPHILS # (AUTO) 0.2 10^3/uL (0.0-0.6); ABSOLUTE LYMPHOCYTES (AUTO) 1.9 10^3/uL (0.5-4.7); ABSOLUTE MONOCYTES (AUTO) 0.5 10^3/uL (0.1-1.4); ABSOLUTE NEUT (AUTO) 5.7 10^3/uL (1.7-8.2); EOSINOPHILS % (AUTO) 2.2 % (0-6); HEMATOCRIT 31.5 % (36.0-47.0); HEMOGLOBIN 10.7 g/dL (12.0-15.5); LYMPHOCYTES % (AUTO) 22.6 % (13-45); MEAN CORPUSCULAR HEMOGLOBIN 32.3 pg (27.0-33.4); MEAN CORPUSCULAR VOLUME 95 fl (80-97); MONOCYTES % (AUTO) 6.4 % (3-13); PLATELET COUNT 230 10^3/uL (150-450); RED BLOOD COUNT 3.31 10^6/uL (3.72-5.28); RED CELL DISTRIBUTION WIDTH 14.2 % (11.5-14.0); SEGMENTED NEUTROPHILS % (AUTO) 67.8 % (42-78); TOTAL CELLS COUNTED % (AUTO) 100 %; WHITE BLOOD COUNT 8.5 10^3/uL (4.0-10.5)
[2018-02-12 05:16] LABS: INTERNATIONAL RATION (INR) 3.52; PROTHROMBIN TIME 36.9 SEC (11.4-15.4)
[2018-02-12 05:17] LABS: PARTIAL THROMBOPLASTIN TIME 71.1 SEC (23.5-35.8)
[2018-02-12] MEDS: LANSOPRAZOLE 30 MG TAB.RAP.DR PO SCH (05:23)
[2018-02-12] MEDS: CEPHALEXIN 500 MG CAPSULE PO SCH (05:23)
[2018-02-12 05:32] LABS: ALANINE AMINOTRANSFERASE 73 U/L (9-52); ALBUMIN 3.4 g/dL (3.5-5.0); ALKALINE PHOSPHATASE 93 U/L (38-126); ANION GAP 11 (5-19); ASPARTATE AMINO TRANSFERASE 46 U/L (14-36); BILIRUBIN,DIRECT 0.1 mg/dL (0.0-0.4); BILIRUBIN,TOTAL 0.6 mg/dL (0.2-1.3); BLOOD UREA NITROGEN 16 mg/dL (7-20); CALCIUM 8.9 mg/dL (8.4-10.2); CARBON DIOXIDE 25 mmol/L (22-30); CHLORIDE 106 mmol/L (98-107); GLUCOSE 96 mg/dL (75-110); POTASSIUM 3.9 mmol/L (3.6-5.0); SODIUM 142.2 mmol/L (137-145)
--- NOTE | 2018-02-12 10:32 | RADIOLOGY REPORT (SQ) ---
EXAM DESCRIPTION: CHEST 2 VIEWS COMPLETED DATE/TIME: 02/12/2018 10:01 am REASON FOR STUDY: cough COMPARISON: 02/10/2018 EXAM PARAMETERS: NUMBER OF VIEWS: two views TECHNIQUE: Digital Frontal and Lateral radiographic views of the chest acquired. RADIATION DOSE: NA LIMITATIONS: none FINDINGS: LUNGS AND PLEURA: No opacities, masses or pneumothorax. No pleural effusion. MEDIASTINUM AND HILAR STRUCTURES: No masses or contour abnormalities. HEART AND VASCULAR STRUCTURES: Heart remains enlarged. No failure. BONES: There has been a previous right shoulder replacement. HARDWARE: Sternotomy wires are in place. OTHER: No other significant finding. IMPRESSION: Cardiomegaly. No acute findings in the chest. TECHNICAL DOCUMENTATION: JOB ID: [id number] [employer]- All Rights Reserved Reading location - IP/workstation name: [email or web address]
[2018-02-12] MEDS: CALCIUM CARBONATE 500 MG TABLET PO SCH (10:38)
[2018-02-12] MEDS: CETIRIZINE 10 MG TABLET PO SCH (10:38)
[2018-02-12] MEDS: CHOLECALCIFEROL (D3) 1,000 UNIT TABLET PO SCH (10:38)
[2018-02-12] MEDS: AMIODARONE HCL 200 MG TABLET PO SCH (10:38)
[2018-02-12] MEDS: METOPROLOL SUCCINATE 25 MG TAB.SR.24H PO SCH (10:38)
[2018-02-12] MEDS: DULOXETINE HCL 30 MG CAPSULE.DR PO SCH (10:38)
[2018-02-12] MEDS: FLUTICASONE/UMECLIDIN/VILANTER 100-62.5-25 MCG/DOSE IH SCH (10:39)
[2018-02-12] MEDS: FUROSEMIDE 20 MG TABLET PO SCH (10:39)
[2018-02-12] MEDS ORDERED: DOCUSATE SODIUM 100 MG CAPSULE PO SCH (12:00)
[2018-02-12 12:13] VITALS: BP 110/74
--- NOTE | 2018-02-14 16:30 | PDOC DISCHARGE SUMMARY ---
General - Admit/Disc Date/PCP Admission Date/Primary Care Provider: 02/09/18 11:57 JUAN CRAFT MD Discharge Date: 02/12/18 - Discharge Diagnosis (1) Atrial fibrillation with RVR Is this a current diagnosis for this admission?: Yes Summary: All patient is currently doing well (2) Anemia Is this a current diagnosis for this admission?: Yes Summary: Currently all stable (3) Gastroesophageal reflux disease Is this a current diagnosis for this admission?: Yes Summary: Currently all stable (4) Valvular heart disease Is this a current diagnosis for this admission?: Yes Summary: She is currently follow with Dr. Denise atkins Coumadin currently follow with a title attorney for that (5) Congestive heart failure Is this a current diagnosis for this admission?: Yes Summary: Currently all stable - Additional Information Resuscitation Status: Full Code Discharge Diet: Diabetic Discharge Activity: Activity As Tolerated Prescriptions: Amiodarone HCl [Cordarone 200 mg Tablet] 100 mg PO BID #60 tablet Cephalexin Monohydrate [Keflex 500 mg Capsule] 500 mg PO Q8 #21 capsule Home Medications: Cetirizine HCl [24Hour Allergy] 10 mg PO DAILY 03/16/17 Duloxetine HCl [Cymbalta] 30 mg PO DAILY 03/16/17 Warfarin Sodium [Coumadin 2.5 mg Tablet] 2.5 mg PO QHS 03/16/17 Beta-Carotene(A) W-C & E/Min [Ocutabs Vision Formula Tablet] 2 tab PO QHS Biotin 5,000 mcg PO DAILY 02/09/18 Calcium Carbonate [Calcium] 1,200 mg PO DAILY 02/09/18 Cholecalciferol (Vitamin D3) [Vitamin D3 5000 unit Capsule] 5,000 unit PO DAILY 02/09/18 Furosemide [Lasix 20 mg Tablet] 20 mg PO BID 02/09/18 Metoprolol Succinate [Toprol Xl] 25 mg PO DAILY 02/09/18 Pantoprazole Sodium [Protonix] 40 mg PO DAILY 02/09/18 Vitamin B Complex [B Complex] 1 each PO QHS 02/09/18 Amiodarone HCl [Cordarone 200 mg Tablet] 100 mg PO BID #60 tablet 02/12/18 Cephalexin Monohydrate [Keflex 500 mg Capsule] 500 mg PO Q8 #21 capsule History of Present Illness History of Present Illness: ZENY PRITCHARD is a 78 year old female Is an 78-year-old female was admitting in the hospital for the atrial fibrillation with rapid ventricular response short of breath Hospital Course Hospital Course: This 78-year-old female with valvular heart disease on chronic Coumadin congestive heart failure and chronic A. fib admitting in the hospital with a rapid ventricular response patient was on a Cardizem switch to p.o. medications when patient was initially put on amiodarone drip because of the low blood pressures Patient is seen by the cardiology and switch to the p.o. amiodarone Patient's put On a beta-geovanni LFTs slightly elevated the ultrasound was all stable Is otherwise doing well patients walk in the hallway without any problems patient hemoglobin is also stable Patient also see a cardiology and also see a title attorney Follow cardiology and hematology for INR check this week Physical Exam Vital Signs: Temp Pulse Resp BP Pulse Ox 97.5 F 101 H 18 110/74 94 02/12/18 12:07 02/12/18 12:07 02/12/18 12:07 02/12/18 12:07 02/12/18 12:07 Intake & Output 02/13/18 02/14/18 02/15/18 06:59 06:59 06:59 Intake Total 355 Balance 355 General appearance: PRESENT: no acute distress, well-developed, well-nourished Head exam: PRESENT: atraumatic, normocephalic Eye exam: PRESENT: conjunctiva pink, EOMI, PERRLA. ABSENT: scleral icterus Ear exam: PRESENT: normal external ear exam Mouth exam: PRESENT: moist, tongue midline Neck exam: PRESENT: full ROM. ABSENT: carotid bruit, JVD, lymphadenopathy, thyromegaly Respiratory exam: PRESENT: clear to auscultation moni Cardiovascular exam: PRESENT: RRR. ABSENT: diastolic murmur, rubs, systolic murmur Pulses: PRESENT: normal dorsalis pedis pul, +2 pedal pulses bilateral Vascular exam: PRESENT: normal capillary refill GI/Abdominal exam: PRESENT: normal bowel sounds, soft. ABSENT: distended, guarding, mass, organolmegaly, rebound, tenderness Rectal exam: PRESENT: deferred Musculoskeletal exam: PRESENT: ambulatory Neurological exam: PRESENT: alert, awake, oriented to person, oriented to place , oriented to time, oriented to situation, CN II-XII grossly intact. ABSENT: motor sensory deficit Psychiatric exam: PRESENT: appropriate affect, normal mood. ABSENT: homicidal ideation, suicidal ideation Skin exam: PRESENT: dry, intact, warm. ABSENT: cyanosis, rash Results Laboratory Results: 02/12/18 04:48 02/12/18 04:48 02/09/18 02/09/18 02/10/18 16:50 22:30 04:35 Troponin I < 0.012 < 0.012 < 0.012 Impressions: Abdomen Ultrasound 02/11/18 00:00 IMPRESSION: Limited study secondary to body habitus and overlying bowel gas. The liver is echogenic consistent with fatty infiltration. The gallbladder is not identified. Chest X-Ray 02/12/18 00:00 IMPRESSION: Cardiomegaly. No acute findings in the chest. Qualifiers - * PATIENT BEING DISCHARGED WITH ANY OF THE FOLLOWING DIAGNOSIS: No VTE patient discharged on overlapping Therapy?: Yes Plan Time Spent: Greater than 30 Minutes - Continues to current medications patient stable to discharge follow INR check in 2 days
== END 2018-02-12 13:24 | disposition home or self-care (01) | DRG 310 ==
LOC: ER 09:38 → EH 11:57 → 3W 13:33
PROVIDERS: ADMIT Internal Medicine; ATTEND Family Medicine
DX: I48.2 Chronic atrial fibrillation (principal); I50.9 Heart failure, unspecified; D50.0 Iron deficiency anemia secondary to blood loss (chronic); K21.9 Gastro-esophageal reflux disease without esophagitis; R41.3 Other amnesia; Z60.2 Problems related to living alone; Z79.01 Long term (current) use of anticoagulants; Z95.2 Presence of prosthetic heart valve
CPT/HCPCS: 36415; 71045; 71046; 76700; 80048; 80053; 80061; 80076; 81001; 82140; 82150; 83036; 83690; 83735; 84439; 84443; 84484; 85025; 85610; 85730; 87040; 87086; 93005; 93010; 93306; 96374; 99285; J0282; J3490; J7030; J7060

== ENCOUNTER → 2019-10-10 | Outpatient (CLI) | payer MEDICARE, OTHER ==
--- NOTE | 2019-10-10 14:31 | RADIOLOGY REPORT (SQ) ---
EXAM DESCRIPTION: CHEST PA/LATERAL IMAGES COMPLETED DATE/TIME: 10/10/2019 1:51 pm REASON FOR STUDY: SHORTNESS OF BREATH COMPARISON: None. EXAM PARAMETERS: NUMBER OF VIEWS: two views TECHNIQUE: Digital Frontal and Lateral radiographic views of the chest acquired. RADIATION DOSE: NA LIMITATIONS: none FINDINGS: LUNGS AND PLEURA: No opacities, masses or pneumothorax. No pleural effusion. MEDIASTINUM AND HILAR STRUCTURES: No masses or contour abnormalities. HEART AND VASCULAR STRUCTURES: Cardiomegaly. BONES: No acute findings. HARDWARE: Sternotomy wires. Heart valve. OTHER: No other significant finding. IMPRESSION: Cardiomegaly without pulmonary edema. TECHNICAL DOCUMENTATION: JOB ID: [id number] [employer]- All Rights Reserved Reading location - IP/workstation name: [email or web address]
== END ==
LOC: OD 13:33
PROVIDERS: ATTEND Physician Assistant
DX: R06.02 Shortness of breath (principal)
CPT/HCPCS: 71046

== ENCOUNTER 2019-10-12 12:07 | Emergency (ER) | payer MEDICARE, OTHER ==
[2019-10-12 12:59] LABS: ABSOLUTE BASOPHILS # (AUTO) 0.1 10^3/uL (0.0-0.2); ABSOLUTE EOSINOPHILS # (AUTO) 0.1 10^3/uL (0.0-0.6); ABSOLUTE LYMPHOCYTES (AUTO) 1.3 10^3/uL (0.5-4.7); ABSOLUTE MONOCYTES (AUTO) 0.4 10^3/uL (0.1-1.4); ABSOLUTE NEUT (AUTO) 5.1 10^3/uL (1.7-8.2); BASOPHILS % (AUTO) 1.2 % (0-2); EOSINOPHILS % (AUTO) 0.7 % (0-6); HEMATOCRIT 24.2 % (36.0-47.0); LYMPHOCYTES % (AUTO) 18.7 % (13-45); MEAN CORPUSCULAR HEMOGLOBIN 27.3 pg (27.0-33.4); MEAN CORPUSCULAR HGB CONC 31.8 g/dL (32.0-36.0); MEAN CORPUSCULAR VOLUME 86 fl (80-97); MONOCYTES % (AUTO) 6.2 % (3-13); PLATELET COUNT 405 10^3/uL (150-450); RED BLOOD COUNT 2.81 10^6/uL (3.72-5.28); RED CELL DISTRIBUTION WIDTH 16.5 % (11.5-14.0); SEGMENTED NEUTROPHILS % (AUTO) 73.2 % (42-78); TOTAL CELLS COUNTED % (AUTO) 100 %
[2019-10-12 13:04] LABS: HEMOGLOBIN 7.7 g/dL (12.0-15.5)
[2019-10-12 13:10] LABS: ALBUMIN 4.1 g/dL (3.5-5.0); ALKALINE PHOSPHATASE 92 U/L (38-126); ANION GAP 10 (5-19); ASPARTATE AMINO TRANSFERASE 34 U/L (14-36); BILIRUBIN,TOTAL 0.4 mg/dL (0.2-1.3); BLOOD UREA NITROGEN 23 mg/dL (7-20); CALCIUM 8.9 mg/dL (8.4-10.2); CARBON DIOXIDE 21 mmol/L (22-30); CHLORIDE 106 mmol/L (98-107); GLUCOSE 152 mg/dL (75-110); POTASSIUM 4.3 mmol/L (3.6-5.0); TOTAL PROTEIN 7.2 g/dL (6.3-8.2)
[2019-10-12] MEDS ORDERED: NORMAL SALINE 250 ML IV PRN (13:16)
--- NOTE | 2019-10-12 13:21 | RADIOLOGY REPORT (SQ) ---
EXAM DESCRIPTION: CHEST SINGLE VIEW IMAGES COMPLETED DATE/TIME: 10/12/2019 12:01 pm REASON FOR STUDY: cough COMPARISON: 10/10/2019 EXAM PARAMETERS: NUMBER OF VIEWS: One view. TECHNIQUE: Single frontal radiographic view of the chest acquired. RADIATION DOSE: NA LIMITATIONS: None. FINDINGS: LUNGS AND PLEURA: Lungs are hyperinflated. No focal consolidation or pleural effusion. N o pneumothorax. MEDIASTINUM AND HILAR STRUCTURES: No masses. Contour normal. HEART AND VASCULAR STRUCTURES: Postoperative changes of prior CABG, stable. Heart is mildly enlarged . No pulmonary vascular congestion. BONES: Right shoulder arthroplasty unchanged. HARDWARE: None in the chest. OTHER: No other significant finding. IMPRESSION: No acute cardiopulmonary disease. TECHNICAL DOCUMENTATION: JOB ID: [id number] [employer]- All Rights Reserved Reading location - IP/workstation name: [email or web address]
[2019-10-12 13:31] LABS: INTERNATIONAL RATION (INR) 2.12; PROTHROMBIN TIME 24.1 SEC (11.4-15.4)
[2019-10-12 13:45] LABS: NT PRO BNP 7240 pg/mL (<450); TROPONIN I < 0.012 ng/mL
[2019-10-12 15:22] LABS: APPEARANCE,URINE CLOUDY; BILIRUBIN,URINE NEGATIVE (NEGATIVE); COLOR,URINE YELLOW; GLUCOSE, URINE NEGATIVE (NEGATIVE); KETONES,URINE NEGATIVE (NEGATIVE); LEUKOCYTE ESTERASE,URINE TRACE (NEGATIVE); NITRITE,URINE NEGATIVE (NEGATIVE); PROTEIN,URINE 100 mg/dL (NEGATIVE); URINE SPECIFIC GRAVITY 1.018; UROBILINOGEN,URINE NEGATIVE mg/dL (<2.0)
--- NOTE | 2019-10-12 16:39 | ER Document Report ---
Entered by JARED BETANCOURT SCRIBE 10/12/19 1644 Acting as scribe for:JAGDISH LORD MD ED General - General Chief Complaint: Pain All Over Stated Complaint: SHORTNESS OF BREATH/NAUSEA/BACK/ARM/NECK PAIN Time Seen by Provider: 10/12/19 12:45 Primary Care Provider: DAJA RANDALL PA [Primary Care Provider] - Follow up in 3-5 days Information source: Patient Notes: This 79 year old female patient presents to the emergency department today with complaints of shortness of breath and general weakness the past x2-3 weeks. Patient states she feels normal when resting, but when walking she experiences shortness of breath, general weakness, and nausea. Patient states she had a chest X-ray done x2 days ago. Patient reports a history of Afib and a valve replacement surgery. She is on Coumadin. She reports that she does get occasional iron transfusions for anemia. TRAVEL OUTSIDE OF THE [place] IN LAST 30 DAYS: No - Related Data Allergies/Adverse Reactions: No Known Allergies Allergy (Verified 02/09/18 09:40) Past Medical History - General Information source: Patient - Social History Smoking Status: Unknown if Ever Smoked Family History: Reviewed & Not Pertinent, Hypertension - Past Medical History Cardiac Medical History: Reports: Hx Atrial Fibrillation, Hx Congestive Heart Failure Musculoskeletal Medical History: Reports Hx Arthritis Past Surgical History: Reports: Hx Orthopedic Surgery - R shoulder replacement, Hx Valve Replacement - Mechanical aortic valve - Immunizations Hx Pneumococcal Vaccination: 04/16/14 Review of Systems - Review of Systems Constitutional: See HPI, Weakness EENT: No symptoms reported Cardiovascular: See HPI Respiratory: See HPI, Short of breath Gastrointestinal: See HPI, Nausea Genitourinary: No symptoms reported Female Genitourinary: No symptoms reported Musculoskeletal: No symptoms reported Skin: No symptoms reported Hematologic/Lymphatic: No symptoms reported Neurological/Psychological: No symptoms reported -: Yes All other systems reviewed and negative Physical Exam - Vital signs Vitals: Temp Pulse Resp BP Pulse Ox 97.9 F 118 H 24 H 94/68 L 96 10/12/19 12:19 10/12/19 12:19 10/12/19 12:19 10/12/19 12:19 10/12/19 12:19 - General General appearance: Appears well, Alert - HEENT Head: Normocephalic, Atraumatic Eyes: Normal, Pale conjunctiva Pupils: PERRL - Respiratory Respiratory status: No respiratory distress Chest status: Nontender Breath sounds: Normal Chest palpation: Normal - Cardiovascular Murmur: No Notes: Mechanical heart valve sound. Heart rhythm ranges between 110 and 130, mainly staying at 110. - Abdominal Inspection: Normal Distension: No distension Bowel sounds: Normal Tenderness: Nontender - Extremities General upper extremity: Normal inspection. No: Edema General lower extremity: Normal inspection. No: Edema - Neurological Neuro grossly intact: Yes Cognition: Normal Orientation: AAOx4 Speech: Normal - Psychological Associated symptoms: Normal affect, Normal mood - Skin Skin Temperature: Warm Skin Moisture: Dry Skin Color: Pale Course - Re-evaluation Re-evalutation: 10/12/19 14:25 Stool is heme positive. 10/12/19 20:26 Patient states she feels much better and now energetic after receiving the blood transfusion. - Vital Signs Vital signs: Temp Pulse Resp BP Pulse Ox 97.9 F 99 29 H 124/72 99 10/12/19 18:00 10/12/19 18:01 10/12/19 19:01 10/12/19 19:00 10/12/19 19:01 - Laboratory Result Diagrams: 10/12/19 12:25 10/12/19 12:25 Laboratory results interpreted by me: 10/12/19 10/12/19 10/12/19 12:25 12:25 12:25 RBC 2.81 L Hgb 7.7 L Hct 24.2 L MCHC 31.8 L RDW 16.5 H PT Sodium 136.7 L Carbon Dioxide 21 L BUN 23 H Creatinine 1.30 H Est GFR ( Amer) 48 L Est GFR (MDRD) Non-Af 39 L Glucose 152 H NT-Pro-B Natriuret Pep 7240 H Urine Protein Ur Leukocyte Esterase Urine Ascorbic Acid Crossmatch 10/12/19 10/12/19 10/12/19 12:25 13:34 14:35 RBC Hgb Hct MCHC RDW PT 24.1 H Sodium Carbon Dioxide BUN Creatinine Est GFR ( Amer) Est GFR (MDRD) Non-Af Glucose NT-Pro-B Natriuret Pep Urine Protein 100 H Ur Leukocyte Esterase TRACE H Urine Ascorbic Acid 40 H Crossmatch See Detail - Diagnostic Test Radiology reviewed: Image reviewed, Reports reviewed - Chest x-ray shows mildly enlarged heart without failure. Median sternotomy wires. 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 Gonzalez this week for recheck. RETURN TO THE EMERGENCY ROOM IF ANY NEW OR WORSENING SYMPTOMS. Referrals: DAJA RANDALL PA [Primary Care Provider] - Follow up in 3-5 days I personally performed the services described in the documentation, reviewed and edited the documentation which was dictated to the scribe in my presence, and it accurately records my words and actions.
--- NOTE | 2019-10-12 18:40 | EKG REPORT ---
SEVERITY:- ABNORMAL ECG - ATRIAL FIBRILLATION MULTIPLE PREMATURE COMPLEXES, VENT : Confirmed by: Raffaele Walker 12-Oct-2019 18:39:45
[2019-10-12 20:31] VITALS: BP 123/69
== END 2019-10-12 20:48 | disposition home or self-care (01) ==
LOC: ER 12:07
DX: K92.2 Gastrointestinal hemorrhage, unspecified (principal); D50.0 Iron deficiency anemia secondary to blood loss (chronic); R06.02 Shortness of breath; R11.0 Nausea; M54.9 Dorsalgia, unspecified; I48.91 Unspecified atrial fibrillation; Z79.01 Long term (current) use of anticoagulants; I50.9 Heart failure, unspecified; R53.83 Other fatigue; D64.9 Anemia, unspecified; R06.00 Dyspnea, unspecified
CPT/HCPCS: 93005; 99284; 86900; 86901; 36415; 36430; 86850; 82550; 85025; 85610; 82270; 80053; 81001; 84484; 86920; 83880; 71045; 93010; P9016

== ENCOUNTER → 2020-01-01 | Outpatient (CLI) | payer MEDICARE, OTHER ==
--- NOTE | 2020-01-01 14:35 | RADIOLOGY REPORT (SQ) ---
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 RENAL FUNCTION: Creatinine 1.1 COMPARISON: None. TECHNIQUE: CT scan of the chest performed using helical scanning technique with dynamic intravenous contrast injection. Images reviewed with lung, soft tissue and bone windows. Reconstructed coronal a nd sagittal MPR images reviewed. All images stored on PACS. All CT scanners at this facility use dose modulation, iterative reconstruction, and/or weight based d osing when appropriate to reduce radiation dose to as low as reasonably achievable (ALARA). [facility]: Dose Right [facility]: CareDose [facility]: Dose Right [facility]: Teradose 4D [facility]: Smart [employer] RADIATION DOSE: CT Rad equipment meets quality standard of care and radiation dose reduction techniq ues were employed. CTDIvol: 13.6 - 20.7 mGy. DLP: 2388 mGy-cm. . LIMITATIONS: None. FINDINGS: AXILLAE: No adenopathy. CHEST WALL: No masses. No subcutaneous air. LUNGS: Mild bronchiectasis in the medial right base. 3 mm nodule in the left lower lobe on image 72 series 7. PLEURA: No effusions. No calcifications. THYROID: No masses or significant asymmetry. HILAR AND MEDIASTINAL STRUCTURES: Moderate hiatal hernia. AORTA AND GREAT VESSELS: No aneurysm. No dissection. PULMONARY ARTERIES: No identified pulmonary emboli. Study not optimized for the pulmonary arteries. HEART: No pericardial effusion. HARDWARE AND LIFELINES: Sternotomy wires. BONES: No significant finding. OTHER: No other significant finding. IMPRESSION: Mild chronic lung changes. Nonspecific 3 mm nodule on the left. The overall appearance of the chest does not suggest metastatic disease. Hiatal hernia. COMPARISON: None. RADIATION DOSE: CT Rad equipment meets quality standard of care and radiation dose reduction techniq ues were employed. CTDIvol: 13.6 - 20.7 mGy. DLP: 2388 mGy-cm. mGy. TECHNIQUE: CT scan of the abdomen and pelvis performed with intravenous and oral contrast using tres norm scanning technique with dynamic intravenous contrast injection. Images reviewed with lung, soft tissue and bone windows. Reconstructed coronal and sagittal MPR images reviewed. Delayed images for evaluation of the urinary system also acquired and evaluated. All images stored on PACS. All CT scanners at this facility use dose modulation, iterative reconstruction, and/or weight based d osing when appropriate to reduce radiation dose to as low as reasonably achievable (ALARA). [facility]: Dose Right [facility]: [employer] [facility]: Dose Right [facility]: Teradose 4D [facility]: [employer] FINDINGS: LIVER: There is a 3 cm somewhat heterogeneous enhancing lesion in the dome of the liver. No additional hepatic lesions are seen. SPLEEN: Normal size. No focal lesions. PANCREAS: No masses. No significant calcifications. No adjacent inflammation or peripancreatic flui d collections. Pancreatic duct not dilated. GALLBLADDER: No identified stones by CT criteria. No inflammatory changes to suggest cholecystitis. ADRENAL GLANDS: No significant masses or asymmetry. RIGHT KIDNEY AND URETER: No solid masses. No significant calcifications. No hydronephrosis or hyd roureter. LEFT KIDNEY AND URETER: No solid masses. No significant calcifications. No hydronephrosis or hydr oureter. AORTA AND VESSELS: No aneurysm. No dissection. Renal arteries, SMA, celiac without stenosis. RETROPERITONEUM: No retroperitoneal adenopathy, hemorrhage or masses. LARGE AND SMALL BOWEL: Retained stool. No obvious bowel mass. No inflammation. APPENDIX: Not identified. ABDOMINAL WALL: There are some small bubbles of air in the subcutaneous fat. PERITONEAL CAVITY: No free air. No free fluid. No peritoneal implants or masses. PELVIS: Urinary bladder is incompletely filled but otherwise unremarkable. No pelvic mass or fluid c ollection. BONES: No significant or acute findings. OTHER: No other significant finding. IMPRESSION: There is is 3 cm lesion in the dome of the liver. This may represent a metastatic lesio n. Constipation. There are some small bubbles of air in the subcutaneous fat. No other significant findings in the abdomen or pelvis. TECHNICAL DOCUMENTATION: JOB ID: [id number] Quality ID # 436: Final reports with documentation of one or more dose reduction techniques (e.g., Au tomated exposure control, adjustment of the mA and/or kV according to patient size, use of iterative reconstruction technique) 2010 [employer]- All Rights Reserved Reading location - IP/workstation name: [email or web address]
== END ==
LOC: RAD 12:47
PROVIDERS: ATTEND Internal Medicine Hematology & Oncology
DX: C20 Malignant neoplasm of rectum (principal)
CPT/HCPCS: 71260; 74177; 82565

== ENCOUNTER → 2020-01-06 | Outpatient (CLI) | payer MEDICARE, OTHER ==
--- NOTE | 2020-01-07 11:46 | RADIOLOGY REPORT (SQ) ---
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 TECHNIQUE: Blood glucose level was verified. Above dose of FDG was injected intravenously. 2-D seg mented attenuation correction images were obtained from the base of the skull to the midthighs. Nonc ontrast CT images were obtained for attenuation correction and fusion with emission images. CT image s were performed without oral or intravenous contrast and are not sensitive for parenchymal lesions. A series of overlapping emission PET images were obtained. Images reviewed and manipulated at [facility] work station by the radiologist. Images stored on PACS. LIMITATIONS: None. FINDINGS: HEAD AND NECK: There is focal uptake in the right aspect of the neck best demonstrated on image 34. SUV is 5.0. CT images revealed subtle asymmetry compared to the left a discrete mass is n ot seen but correlation with contrasted CT of the neck with contrast for further characterization. CHEST: No areas of abnormal metabolic activity in the chest. ABDOMEN AND PELVIS: Abnormal uptake in the lesion described on recent CT abdomen pelvis. SUV is grea ter than 13 consistent with neoplasm. PROXIMAL LOWER EXTREMITIES: No areas of abnormal metabolic activity in the soft tissues of the lower extremities. BONES: Mild uptake surrounding the right shoulder consistent with prior arthroplasty. ADDITIONAL CT FINDINGS: No additional significant findings on the noncontrast CT images. OTHER: No other significant findings. IMPRESSION: 1. Abnormal uptake in the liver consistent with lesion described on recent CT. SUV is g reater than 13 consistent with neoplasm. 2. Focal area of increased metabolic activity in the right neck suspicious for pathologic adenopathy . SUV is greater than 5. Definite enlarged node is not identified. Correlation with contrasted CT of the neck may be beneficial for further evaluation. TECHNICAL DOCUMENTATION: JOB ID: [id number] 2010 [employer]- All Rights Reserved Reading location - IP/workstation name: [email or web address]
== END ==
LOC: RAD 14:37
PROVIDERS: ATTEND Internal Medicine
DX: C18.2 Malignant neoplasm of ascending colon (principal)
CPT/HCPCS: 78815; A9552

== ENCOUNTER 2020-01-19 11:07 | Day surgery (SDC) | payer MEDICARE, OTHER ==
[2020-01-19 12:45] LABS: HEMATOCRIT 30.7 % (36.0-47.0); HEMOGLOBIN 10.3 g/dL (12.0-15.5); MEAN CORPUSCULAR HEMOGLOBIN 31.7 pg (27.0-33.4); MEAN CORPUSCULAR HGB CONC 33.6 g/dL (32.0-36.0); MEAN CORPUSCULAR VOLUME 94 fl (80-97); PLATELET COUNT 270 10^3/uL (150-450); RED BLOOD COUNT 3.25 10^6/uL (3.72-5.28); RED CELL DISTRIBUTION WIDTH 19.4 % (11.5-14.0); WHITE BLOOD COUNT 4.3 10^3/uL (4.0-10.5)
[2020-01-19 12:59] LABS: INTERNATIONAL RATION (INR) 0.91; PROTHROMBIN TIME 12.5 SEC (11.4-15.4)
[2020-01-19 13:06] LABS: BLOOD UREA NITROGEN 15 mg/dL (7-20)
--- NOTE | 2020-01-19 17:01 | RADIOLOGY REPORT (SQ) ---
EXAM DESCRIPTION: CT BIOPSY LIVER IMAGES COMPLETED DATE/TIME: 01/19/2020 3:19 pm REASON FOR STUDY: MALIGNANT NEOPLASM OF THE ASCENDING COLON C18.2 MALIGNANT NEOPLASM OF ASCENDING C OLON Z79.01 CPO (CURRENT) USE OF ANTICOAGULANTS COMPARISON: PET-CT 01/06/2020 TECHNIQUE: After obtaining informed consent and explaining the risks and benefits of conscious sedat ion,the patient agreed to the procedure. The patient was brought to the CT suite and was placed supin e on the CT gurney. The patient was prepped and draped in the usual sterile fashion. Axial images we re obtained for targeting of thehypodense lesion within the right hepatic dome. An appropriate access site was selected. IV conscious sedation was administered and physician direction by the registered nurse using 0.5 milligrams of Versed and 75 micrograms of fentanyl. Physiologic monitoring was provid ed before, during, and after sedation. The total sedation time was 45 minutes. Documentation face to face time, the performing proceduralist, spent monitoring the patient: [address] of the liver was performed to localize an approach for the hypodense right hepatic dome lesion biopsy. A percutaneous site was marked. Time out was performed. After skin prep and local lidocaine for skin and deep tissue anesthesia, a 15 cm 18 gauge Temno coax ial biopsy needle system was advanced toward the lesion. After needle position confirmed multiple co re biopsies were obtained. Additional imaging was obtained confirming needle biopsy trough at the le anjelica of interest. These were submitted to the lab in formalin. The tract was embolized with a Gel- Foam. No immediate postprocedure complications. Completion CT and radiographs were obtained. Total of 28.[address] fluoro was used. 5 CT Fluoroscopic images were obtained and saved to PACS. All CT scanners at this facility use dose modulation, iterative reconstruction, and/or weight based d osing when appropriate to reduce radiation dose to as low as reasonably achievable (ALARA). [facility]: Dose Right [facility]: CareDose [facility]: Dose Right [facility]: Teradose 4D [facility]: [employer] RADIATION DOSE: CT Rad equipment meets quality standard of care and radiation dose reduction techniq ues were employed. CTDIvol: 6.6 - 32.2 mGy. DLP: 2192 mGy-cm. mGy. LIMITATIONS: None. FINDINGS: CT guided liver biopsy as detailed above. IMPRESSION: CT FLUOROSCOPY GUIDED HYPODENSE RIGHT HEPATIC DOME LESION BIOPSY PERFORMED ABOVE. P ATHOLOGY PENDING. NO IMMEDIATE COMPLICATIONS. COMMENT: Patient medication list reviewed:Yes- Quality ID# 130:Eligible professional attests to docu menting in the medical record they obtained, updated, or reviewed the patient's current medications.. Quality ID 145: Final reports for procedures using fluoroscopy that document radiation exposure quentin hiren, or exposure time and number of fluorographic images (if radiation exposure indices are not avail able) TECHNICAL DOCUMENTATION: JOB ID: [id number] Quality ID # 436: Final reports with documentation of one or more dose reduction techniques (e.g., A utomated exposure control, adjustment of the mA and/or kV according to patient size, use of iterative reconstruction technique) 2010 [employer]- All Rights Reserved Reading location - IP/workstation name: [email or web address]
[2020-01-19 17:20] VITALS: BP 109/57
--- NOTE | 2020-01-19 17:33 | RADIOLOGY REPORT (SQ) ---
EXAM DESCRIPTION: CHEST SINGLE VIEW IMAGES COMPLETED DATE/TIME: 01/19/2020 5:16 pm REASON FOR STUDY: 2HR POST LIVER BIOPSY COMPARISON: 10/12/2019 EXAM PARAMETERS: NUMBER OF VIEWS: One view. TECHNIQUE: Single frontal radiographic view of the chest acquired. RADIATION DOSE: NA LIMITATIONS: None. FINDINGS: LUNGS AND PLEURA: No opacities, masses or pneumothorax. No pleural effusion. MEDIASTINUM AND HILAR STRUCTURES: No masses. Contour normal. HEART AND VASCULAR STRUCTURES: Stable appearance. BONES: The osseous structures are stable in appearance. Partially visualized total right shoulder a rthroplasty. HARDWARE: Prior anterior median sternotomy and valve placement. OTHER: No other significant finding. IMPRESSION: 1. No significant interval changes since the prior study dated 10/12/2019. No evidence of pneumothorax. No acute findings. TECHNICAL DOCUMENTATION: JOB ID: [id number] [employer]- All Rights Reserved Reading location - IP/workstation name: [email or web address]
== END 2020-01-19 17:50 | disposition home or self-care (01) ==
LOC: RAD 11:07
PROVIDERS: ATTEND Internal Medicine
DX: C18.2 Malignant neoplasm of ascending colon (principal); Z79.01 Long term (current) use of anticoagulants; Z20.828 Contact with and (suspected) exposure to other viral communicable diseases
CPT/HCPCS: 36415 ×2; 84520; 82565; 85025; 85027; 85610; 85730; 80048; 88342 ×2; 88341 ×2; 88305 ×2; 71045; 47000; U0003; C9803; 87635

== ENCOUNTER 2020-02-11 09:22 | Inpatient (IN) | payer MEDICARE, OTHER ==
[~2020-02-11 09:22] MED LIST changes: -ACETAMINOPHEN 325 MG TABLET PO PRN; +CEFAZOLIN 2 GM/D5W RTU 2 GM/50 ML RTUPB IV ONE; +CEFAZOLIN 2 GM/D5W RTU 2 GM/50 ML RTUPB IV PRN; +DEXAMETHASONE SOD PHOSPHATE INJ 4 MG/1 ML VIAL ONE; -DIPHENHYDRAMINE HCL 25 MG CAPSULE PO PRN; +FENTANYL CITRATE INJ/PF 100 MCG/2 ML AMPUL ONE; -IRON DEXTRAN COMPLEX 25 MG in SYRINGE, DISPOSABLE, 1 EACH IV PRN; -IRON DEXTRAN COMPLEX 975 MG in NORMAL SALINE 1000 ML 1,000 ML IV PRN; +KETOROLAC TROMETHAMINE 60 MG/2 ML SDV ONE; +LIDOCAINE 2% INJ (20 MG/ML) 20 ML MDV ONE; +METRONIDAZOLE 500 MG/NS RTU 500 MG/100 ML RTUPB IV ONE; +METRONIDAZOLE 500 MG/NS RTU 500 MG/100 ML RTUPB IV PRN; +MIDAZOLAM 2 MG/2 ML INJ ONE; +ONDANSETRON HCL INJ/PF 4 MG/2 ML SDV ONE; +PROPOFOL INJ 200 MG/20 ML VIAL IV ONE
[2020-02-11] MEDS ORDERED: HEPARIN SOD (PORCINE) 1,000 UNIT/ML 1 ML VIAL ONE (09:41)
[2020-02-11] MEDS ORDERED: LIDOCAINE 1%/EPINEPHRINE INJ 20 ML VIAL ONE (09:42)
[2020-02-11] MEDS ORDERED: BUPIVACAINE INJ/PF LIPOSOME/PF 266 MG/20 ML SDV ONE (09:48)
[2020-02-11 10:52] LABS: INTERNATIONAL RATION (INR) 0.97; PARTIAL THROMBOPLASTIN TIME 29.4 SEC (23.5-35.8); PROTHROMBIN TIME 13.1 SEC (11.4-15.4)
[2020-02-11 10:56] LABS: ABSOLUTE BASOPHILS # (AUTO) 0.1 10^3/uL (0.0-0.2); ABSOLUTE EOSINOPHILS # (AUTO) 0.1 10^3/uL (0.0-0.6); ABSOLUTE LYMPHOCYTES (AUTO) 0.9 10^3/uL (0.5-4.7); ABSOLUTE MONOCYTES (AUTO) 0.4 10^3/uL (0.1-1.4); ABSOLUTE NEUT (AUTO) 3.5 10^3/uL (1.7-8.2); BASOPHILS % (AUTO) 1.4 % (0-2); EOSINOPHILS % (AUTO) 1.7 % (0-6); HEMATOCRIT 35.2 % (36.0-47.0); HEMOGLOBIN 11.9 g/dL (12.0-15.5); LYMPHOCYTES % (AUTO) 18.7 % (13-45); MEAN CORPUSCULAR HEMOGLOBIN 31.1 pg (27.0-33.4); MEAN CORPUSCULAR HGB CONC 33.8 g/dL (32.0-36.0); MEAN CORPUSCULAR VOLUME 92 fl (80-97); MONOCYTES % (AUTO) 8.3 % (3-13); PLATELET COUNT 324 10^3/uL (150-450); RED BLOOD COUNT 3.82 10^6/uL (3.72-5.28); RED CELL DISTRIBUTION WIDTH 16.8 % (11.5-14.0); SEGMENTED NEUTROPHILS % (AUTO) 69.9 % (42-78); TOTAL CELLS COUNTED % (AUTO) 100 %
[2020-02-11 11:09] LABS: ANION GAP 14 (5-19); BLOOD UREA NITROGEN 28 mg/dL (7-20); CALCIUM 9.9 mg/dL (8.4-10.2); CARBON DIOXIDE 23 mmol/L (22-30); CHLORIDE 102 mmol/L (98-107); GLUCOSE 111 mg/dL (75-110); POTASSIUM 4.3 mmol/L (3.6-5.0)
[2020-02-11] MEDS ORDERED: ROCURONIUM BROMIDE INJ 50 MG/5 ML VIAL IV ONE (11:36)
[2020-02-11] MEDS ORDERED: PHENYLEPHRINE HCL INJ/PF 10 MG/1 ML SDV ONE ×2 (11:36)
[2020-02-11] MEDS ORDERED: EPHEDRINE SULFATE INJ 50 MG/1 ML AMPULE ONE (12:02)
[2020-02-11] MEDS ORDERED: MORPHINE SULFATE 10 MG/ML INJ IV PRN ×2 (13:04→15:44)
[2020-02-11] MEDS ORDERED: MEPERIDINE HCL/PF INJ 25 MG/1 ML DISP.SYRIN IV PRN (13:04)
[2020-02-11] MEDS ORDERED: DIPHENHYDRAMINE HCL 50 MG/ML VIAL IV PRN (13:04)
[2020-02-11] MEDS ORDERED: ONDANSETRON HCL INJ/PF 4 MG/2 ML SDV IV PRN (13:04)
[2020-02-11] MEDS ORDERED: FENTANYL CITRATE INJ/PF 100 MCG/2 ML AMPUL IV PRN ×3 (13:04)
[2020-02-11] MEDS ORDERED: VASOPRESSIN INJ 20 UNIT/1 ML VIAL ONE ×3 (14:07→16:03)
--- NOTE | 2020-02-11 14:26 | RADIOLOGY REPORT (SQ) ---
EXAM DESCRIPTION: FLUORO/CV PLACEMENT IMAGES COMPLETED DATE/TIME: 02/11/2020 2:17 pm REASON FOR STUDY: LEFT PORT-A-CATH C18.9 MALIGNANT NEOPLASM OF COLON, UNSPECIFIED COMPARISON: 01/19/2020 FLUOROSCOPY TIME: 1.1 minutes Spot images saved to PACS. TECHNIQUE: Intra-operative images acquired during surgical procedure to evaluate progress. NUMBER OF IMAGES: 3 LIMITATIONS: None. FINDINGS: Fluoroscopy was provided for intraoperative procedure. Please refer to the operative repo rt for further discussion. IMPRESSION: IMAGE(S) OBTAINED DURING PROCEDURE. COMMENT: Quality ID 145: Final reports for procedures using fluoroscopy that document radiation exp osure indices, or exposure time and number of fluorographic images (if radiation exposure indices are not available) Please consult full operative report of the attending physician for description of the procedure. TECHNICAL DOCUMENTATION: JOB ID: [id number] 2010 [employer]- All Rights Reserved Reading location - IP/workstation name: [email or web address]
[2020-02-11] MEDS ORDERED: MIDAZOLAM 2 MG/2 ML INJ ONE (14:29)
[2020-02-11] MEDS ORDERED: FENTANYL CITRATE INJ/PF 100 MCG/2 ML AMPUL ONE (14:39)
[2020-02-11] MEDS ORDERED: DEXTROSE 5%-LACTATED RINGERS 1,000 ML IV PRN (15:44)
[2020-02-11] MEDS ORDERED: CALCIUM GLUCONATE 1000 MG/10 ML INJ IV ONE (15:54)
[2020-02-11] MEDS: CALCIUM GLUCONATE 1 GM/NS 50 ML RTU IV SCH ×4 (16:22→21:43)
[2020-02-11] MEDS ORDERED: DEXTROSE 5%-WATER 250 ML with VASOPRESSIN 100 UNIT IV PRN ×4 (16:34→16:37)
--- NOTE | 2020-02-11 16:34 | Operative Report ---
Bedside Procedure - History of Present Illness History of Present Illness: SDS admission for R hemicolectomy and liver resection. Indication for Procedure: Need for vasopressin Date: 02/11/20 Provider: HUA MAY - Central Line Right Internal jugular Time completed: 16:30 Consent obtained: No Central line pre-insertion: Sterile PPE donned, Chloraprep applied, Sterile drapes applied Central line lumen type: Triple Ultrasound guided: No Line secured with sutures: Yes Central line post-insertion: Blood return from lumens, Biopatch applied, Sutured, Sterile dressing applied, Position confirmed w/ CXR Number of attempts: 1 Complications: No
[2020-02-11] MEDS ORDERED: NOREPINEPHRINE BITARTRATE INJ/PF 4 MG/4 ML SDV IV ONE (16:38)
[2020-02-11] MEDS ORDERED: DEXTROSE 5%-WATER 250 ML with NOREPINEPHRINE BITARTRATE 4 MG IV PRN ×2 (16:54)
[2020-02-11] MEDS ORDERED: DEXMEDETOMIDINE IN 0.9 % NACL 400 MCG/100 ML RTUPB IV ONE (16:56)
[2020-02-11 17:05] LABS: HEMATOCRIT 41.7 % (36.0-47.0); HEMOGLOBIN 13.8 g/dL (12.0-15.5); MEAN CORPUSCULAR HEMOGLOBIN 30.1 pg (27.0-33.4); MEAN CORPUSCULAR HGB CONC 33.1 g/dL (32.0-36.0); MEAN CORPUSCULAR VOLUME 91 fl (80-97); PLATELET COUNT 158 10^3/uL (150-450); RED BLOOD COUNT 4.59 10^6/uL (3.72-5.28); RED CELL DISTRIBUTION WIDTH 15.8 % (11.5-14.0)
[2020-02-11 17:08] LABS: WHITE BLOOD COUNT 13.9 10^3/uL (4.0-10.5)
--- NOTE | 2020-02-11 17:27 | RADIOLOGY REPORT (SQ) ---
EXAM DESCRIPTION: CHEST SINGLE VIEW IMAGES COMPLETED DATE/TIME: 02/11/2020 4:55 pm REASON FOR STUDY: Check for placement of ETT Right IJ central line COMPARISON: 01/19/2020 EXAM PARAMETERS: NUMBER OF VIEWS: One view. TECHNIQUE: Single frontal radiographic view of the chest acquired. RADIATION DOSE: NA LIMITATIONS: Demographics mismatch warning. This is obviously the same patient as the exam on 020 FINDINGS: LUNGS AND PLEURA: Ill-defined opacification in the left base. The medial aspect of the le ft hemidiaphragm is indistinct. MEDIASTINUM AND HILAR STRUCTURES: No masses. Contour normal. HEART AND VASCULAR STRUCTURES: Cardiomegaly. No mustapha pulmonary edema. BONES: No acute findings. HARDWARE: Right internal jugular catheter has its tip in the superior vena cava. Injection port on t he left with the catheter tip near the right atrium. Sternotomy wires. Heart valve. Endotracheal t ube has its tip 4 cm above the alexandrea. OTHER: No other significant finding. IMPRESSION: Cannot exclude airspace disease in the left lower lobe, pneumonia versus atelectasis. R ight internal jugular catheter and endotracheal tube as described. Injection port remains in place. TECHNICAL DOCUMENTATION: JOB ID: [id number] 2010 [employer]- All Rights Reserved Reading location - IP/workstation name: [email or web address]
[2020-02-11] MEDS: METRONIDAZOLE 500 MG/NS RTU 500 MG/100 ML RTUPB IV SCH (19:04)
[2020-02-11] MEDS: DEXMEDETOMIDINE IN NS 400 MCG/100 ML RTUPB IV PRN (20:32)
[2020-02-11] MEDS ORDERED: FUROSEMIDE INJ/PF 40 MG/4 ML SDV IV ONE (20:45)
[2020-02-11 20:59] LABS: HEMATOCRIT 43.1 % (36.0-47.0); HEMOGLOBIN 14.7 g/dL (12.0-15.5); MEAN CORPUSCULAR HEMOGLOBIN 30.7 pg (27.0-33.4); MEAN CORPUSCULAR HGB CONC 34.1 g/dL (32.0-36.0); MEAN CORPUSCULAR VOLUME 90 fl (80-97); PLATELET COUNT 158 10^3/uL (150-450); RED BLOOD COUNT 4.79 10^6/uL (3.72-5.28); RED CELL DISTRIBUTION WIDTH 16.2 % (11.5-14.0); WHITE BLOOD COUNT 18.4 10^3/uL (4.0-10.5)
[2020-02-11] MEDS: CEFAZOLIN 1 GM/D5W RTU 1 GM/50 ML RTUPB IV SCH (21:10)
[2020-02-11] MEDS: FAMOTIDINE INJ/PF 20 MG/2 ML SDV IV SCH (21:11)
[2020-02-12] MEDS ORDERED: DEXTROSE 40% GEL 15 GM TUBE PO PRN ×4 (00:06→04:28)
[2020-02-12] MEDS ORDERED: DEXTROSE 50%-WATER 25 GM/50 ML DISP.SYRIN IV PRN ×4 (00:06→04:28)
[2020-02-12] MEDS ORDERED: GLUCAGON,HUMAN RECOMB 1 MG INJ IM PRN (00:06)
[2020-02-12] MEDS ORDERED: INSULIN REG, HUMAN 100 UNIT/ML 3 ML VIAL (PYX) SUBCUT ONE (00:07)
[2020-02-12] MEDS: METRONIDAZOLE 500 MG/NS RTU 500 MG/100 ML RTUPB IV SCH ×3 (01:57→17:30)
[2020-02-12] MEDS: DEXMEDETOMIDINE IN NS 400 MCG/100 ML RTUPB IV PRN (02:20)
[2020-02-12] MEDS ORDERED: FENTANYL CITRATE INJ/PF 100 MCG/2 ML AMPUL ONE (02:55)
[2020-02-12] MEDS: FENTANYL CITRATE INJ/PF 100 MCG/2 ML AMPUL IV PRN ×2 (03:00→21:54)
[2020-02-12] MEDS ORDERED: GLUCAGON,HUMAN RECOMB 1 MG INJ SUBCUT PRN (04:28)
[2020-02-12] MEDS ORDERED: AMIODARONE HCL 150 MG in DEXTROSE 5%-WATER 100 ML IV ONE (04:37)
[2020-02-12] MEDS ORDERED: AMIODARONE HCL INJ 150 MG/3 ML VIAL IV ONE (04:48)
[2020-02-12] MEDS: CEFAZOLIN 1 GM/D5W RTU 1 GM/50 ML RTUPB IV SCH ×3 (05:17→21:54)
[2020-02-12] MEDS: INSULIN LISPRO 100 UNIT/ML 3 ML VIAL SUBCUT SCH ×3 (05:28→17:48)
[2020-02-12 06:04] LABS: ABSOLUTE MONOCYTES (AUTO) 1.2 10^3/uL (0.1-1.4); ABSOLUTE NEUT (AUTO) 16.1 10^3/uL (1.7-8.2); HEMATOCRIT 41.4 % (36.0-47.0); HEMOGLOBIN 14.1 g/dL (12.0-15.5); LYMPHOCYTES % (AUTO) 5.5 % (13-45); MEAN CORPUSCULAR HEMOGLOBIN 30.6 pg (27.0-33.4); MEAN CORPUSCULAR HGB CONC 34.1 g/dL (32.0-36.0); MEAN CORPUSCULAR VOLUME 90 fl (80-97); MONOCYTES % (AUTO) 6.4 % (3-13); PLATELET COUNT 151 10^3/uL (150-450); RED BLOOD COUNT 4.61 10^6/uL (3.72-5.28); RED CELL DISTRIBUTION WIDTH 15.9 % (11.5-14.0); SEGMENTED NEUTROPHILS % (AUTO) 88.1 % (42-78); TOTAL CELLS COUNTED % (AUTO) 100 %; WHITE BLOOD COUNT 18.3 10^3/uL (4.0-10.5)
[2020-02-12 07:17] LABS: ANION GAP 9 (5-19); BLOOD UREA NITROGEN 23 mg/dL (7-20); CALCIUM 9.2 mg/dL (8.4-10.2); CARBON DIOXIDE 22 mmol/L (22-30); CHLORIDE 106 mmol/L (98-107); GLUCOSE 121 mg/dL (75-110); POTASSIUM 3.7 mmol/L (3.6-5.0)
--- NOTE | 2020-02-12 07:45 | PDOC PROGRESS REPORT ---
Subjective Progress Note for:: 02/12/20 Subjective:: awake, extubated, comfortable Reason For Visit: METASTATIC COLON CANCER Physical Exam Vital Signs: Temp Pulse Resp BP Pulse Ox 97.6 F 102 H 23 H 86/59 L 96 02/12/20 04:00 02/12/20 05:58 02/12/20 06:24 02/12/20 06:24 02/12/20 06:24 Intake & Output 02/11/20 02/12/20 02/13/20 06:59 06:59 06:59 Intake Total 3326 Output Total 3165 Balance 161 Weight 77.11 kg 77.2 kg General appearance: PRESENT: no acute distress Head exam: PRESENT: normocephalic Eye exam: PRESENT: EOMI Ear exam: PRESENT: normal external ear exam Mouth exam: PRESENT: moist Neck exam: PRESENT: full ROM Respiratory exam: PRESENT: clear to auscultation moni Cardiovascular exam: PRESENT: RRR Pulses: PRESENT: +2 pedal pulses bilateral Breast: PRESENT: Normal GI/Abdominal exam: PRESENT: soft Rectal exam: PRESENT: deferred Gentrourinary exam: PRESENT: indwelling catheter Extremities exam: PRESENT: full ROM Musculoskeletal exam: PRESENT: full ROM Neurological exam: PRESENT: alert, awake, oriented to person, oriented to place Psychiatric exam: PRESENT: appropriate affect Skin exam: PRESENT: dry Results Laboratory Results: 02/12/20 05:30 02/12/20 06:32 02/11/20 02/11/20 02/11/20 10:20 10:20 10:20 WBC 5.0 RBC 3.82 Hgb 11.9 L Hct 35.2 L MCV 92 MCH 31.1 MCHC 33.8 RDW 16.8 H Plt Count 324 Seg Neutrophils % 69.9 Sodium 139.2 Potassium 4.3 Chloride 102 Carbon Dioxide 23 Anion Gap 14 BUN 28 H Creatinine 1.33 H Est GFR ( Amer) 46 L Est GFR (Non-Af Amer) Glucose 111 H Calcium 9.9 Blood Type O POSITIVE Antibody Screen NEGATIVE 02/11/20 02/11/20 02/12/20 16:30 20:51 05:30 WBC 13.9 H D 18.4 H 18.3 H RBC 4.59 4.79 4.61 Hgb 13.8 14.7 14.1 Hct 41.7 43.1 41.4 MCV 91 90 90 MCH 30.1 30.7 30.6 MCHC 33.1 34.1 34.1 RDW 15.8 H 16.2 H 15.9 H Plt Count 158 158 151 Seg Neutrophils % 88.1 H Sodium Potassium Chloride Carbon Dioxide Anion Gap BUN Creatinine Est GFR ( Amer) Est GFR (Non-Af Amer) Glucose Calcium Blood Type Antibody Screen 02/12/20 02/12/20 05:30 06:32 WBC RBC Hgb Hct MCV MCH MCHC RDW Plt Count Seg Neutrophils % Sodium Cancelled 136.9 L Potassium Cancelled 3.7 Chloride Cancelled 106 Carbon Dioxide Cancelled 22 Anion Gap Cancelled 9 BUN Cancelled 23 H Creatinine Cancelled 1.11 Est GFR ( Amer) Cancelled 57 L Est GFR (Non-Af Amer) Cancelled Glucose Cancelled 121 H Calcium Cancelled 9.2 Blood Type Antibody Screen Impressions: Guidance Fluoroscopy 02/11/20 00:00 IMPRESSION: IMAGE(S) OBTAINED DURING PROCEDURE. Chest X-Ray 02/11/20 16:31 IMPRESSION: Cannot exclude airspace disease in the left lower lobe, pneumonia versus atelectasis. Right internal jugular catheter and endotracheal tube as described. Injection port remains in place. Assessment & Plan - Time Anticipated Discharge Disposition: Home, Self Care Anticipated Discharge Timeframe: unk - Plan Summary Plan Summary: Status post Port-A-Cath placement left chest right hemicolectomy and right partial hepatectomy. Patient doing well this morning she has been extubated her hemoglobin hematocrit are stable blood pressure stable she is awake and alert comfortable. We will plan on discharging her from the intensive care unit to the regular floor today. She can start on clear liquid diet.
--- NOTE | 2020-02-12 08:01 | Operative Report ---
Nonrecallable Operative Report DATE OF SURGERY: 02/11/20 PREOPERATIVE DIAGNOSIS: Right colon cancer with hepatic metastasis POSTOPERATIVE DIAGNOSIS: Same OPERATION: Port-A-Cath placement left chest with right hemicolectomy and partial right hepatectomy SURGEON: LISA FLETCHER ANESTHESIA: GA TISSUE REMOVED OR ALTERED: Right hepatic lobe and right colon COMPLICATIONS: None ESTIMATED BLOOD LOSS: 1200 cc INTRAOPERATIVE FINDINGS: See note PROCEDURE: Patient was brought to the operating awake alert stable condition placed in the operative table supine position induced under general esthesia intubated. The chest and abdomen were prepped and draped in usual sterile fashion. The right subclavian vein was accessed with a 16-gauge needle and the wire was placed through the needle into the superior vena cava. The tear-away introducer dilator was placed over the wire into the superior vena cava. Once this was accomplished the catheter was placed through the tear-away introducer was torn away. A pocket was then fashioned on the left anterior chest wall with Bovie cautery and 15 blade once a pocket was placed the port was placed into the pocket and attached to the catheter after it was tunneled from the subclavian stick site to the pocket. It flew flowed and withdrew easily. The pocket was then closed with interrupted 3-0 Vicryl in the subdermal tissue and 4-0 Monocryl in the skin. Steri-Strips were applied which completed this portion of the procedure. The abdominal portion then ensued. A varies needle was placed into the abdominal cavity insufflated with 6 L of CO2 gas. The supraumbilical incision was made with a 15 blade the port was placed in the abdominal cavity intra-abdominal visualization revealed no evidence of Veress needle or trocar injury. 2 lateral 5 mm ports were placed under direct vision and a right lateral 5 mm port. Intra-abdominal visualization revealed some adhesions of the small bowel to the anterior abdominal wall which were taken down with EndoShears. We then mobilized the right colon and cecum with the LigaSure device mobilizing away f rom the lateral abdominal wall along the white line of Toldt. We then turned attention to the liver was not accessible laparoscopically we therefore performed an open procedure. A José incision was made in the right upper quadrant we gained access to the abdominal cavity with Bovie cautery dividing the rectus muscle. Once this was accomplished we placed the big boy retractor. We then mobilized the right lobe of the liver taking down the triangular ligament and the bare area of the right lobe of the liver mobilizing into the wound. We then encircled the mass in the dome of the liver abutting the cava with the Bovie cautery and then incised it with the LigaSure device removing the mass from the hepatic lobe. We closed hepatic lobe to maintain hemostasis with liver stitches of 0 chromic. Once this was accomplished we then divided the terminal ileum 10 cm from the ileocecal valve with the TRENTON stapler divided the mesentery with the LigaSure device mobilized the right colon taken down the hepatic flexure with Bovie cautery divided the transverse colon to the right of the middle colic vessels with the TRENTON stapler completed the mesenteric division with the LigaSure device remove the specimen performed a ileocolostomy in 2 layers sewn between the terminal ileum and the transverse colon. Once this was accomplished we closed mesenteric defect with 3-0 Maxon. Copiously irrigated the abdominal cavity. Placed Tisseel tissue sealant along the denuded portion of the right lobe of the liver returned to the abdominal cavity placed a Liban-Gamboa drain in the subphrenic space on the right side brought out through stab wound in the left lower quadrant we then closed the right upper quadrant incision in 2 layers the posterior layer was closed with 0 Maxon the anterior layer layer was closed with #2 Vicryl sutures the skin was closed with standard skin clips. The patient was then transferred to the [facility] and then to the intensive care unit in stable condition remaining intubated. Sponge needle counts were correct x2 blood loss was 1200 cc
--- NOTE | 2020-02-12 08:50 | PDOC CRITICAL CARE PROG REPORT ---
General Date:: 02/12/20 ICU Day:: 2 Hospital Day:: 2 Resuscitation Status: Full Code Events in the past 12 to 24 Hours:: Extubated and almost off levophed. POD # 1. Review of systems relevant to events:: GI, CV Reason for ICU Addmission:: Intubated post-op and on levophed. - Medications: Medications reviewed and adjusted accordingly: Yes Vasopressors:: Levophed Sedation:: None Physical Exam Vital Signs: Temp Pulse Resp BP Pulse Ox 98.4 F 103 H 24 H 88/72 L 96 02/12/20 08:00 02/12/20 08:00 02/12/20 08:00 02/12/20 08:00 02/12/20 08:00 Intake & Output 02/11/20 02/12/20 02/13/20 06:59 06:59 06:59 Intake Total 3326 Output Total 3165 50 Balance 161 -50 Weight 77.11 kg 77.2 kg Weight/Height Weight 77.2 kg Height 5 ft General appearance: PRESENT: no acute distress, obese, well-developed, well- nourished Head exam: PRESENT: atraumatic, normocephalic Eye exam: PRESENT: conjunctiva pink, EOMI, PERRLA. ABSENT: scleral icterus Ear exam: PRESENT: normal external ear exam Mouth exam: PRESENT: moist, tongue midline Respiratory exam: PRESENT: clear to auscultation moni. ABSENT: rales, rhonchi, wheezes Cardiovascular exam: PRESENT: RRR. ABSENT: diastolic murmur, rubs, systolic murmur GI/Abdominal exam: PRESENT: normal bowel sounds, soft, other - Incision dressed.. ABSENT: distended, guarding, mass, organolmegaly, rebound, tenderness Rectal exam: PRESENT: deferred Gentrourinary exam: PRESENT: indwelling catheter Extremities exam: PRESENT: full ROM. ABSENT: calf tenderness, clubbing, pedal edema Musculoskeletal exam: PRESENT: normal inspection Neurological exam: PRESENT: alert, awake, oriented to person, oriented to place, oriented to time, oriented to situation, CN II-XII grossly intact. ABSENT: motor sensory deficit Psychiatric exam: PRESENT: appropriate affect, normal mood. ABSENT: homicidal ideation, suicidal ideation Skin exam: PRESENT: dry, intact, warm, other - Chemoport site in L subclavian region clean.. ABSENT: cyanosis, rash Tubes/Lines: PRESENT: Central Line Laboratory/Radiographs Laboratory Results: 02/12/20 05:30 02/12/20 06:32 02/11/20 02/11/20 02/11/20 10:20 10:20 10:20 WBC 5.0 RBC 3.82 Hgb 11.9 L Hct 35.2 L MCV 92 MCH 31.1 MCHC 33.8 RDW 16.8 H Plt Count 324 Seg Neutrophils % 69.9 Sodium 139.2 Potassium 4.3 Chloride 102 Carbon Dioxide 23 Anion Gap 14 BUN 28 H Creatinine 1.33 H Est GFR ( Amer) 46 L Est GFR (Non-Af Amer) Glucose 111 H Calcium 9.9 Blood Type O POSITIVE Antibody Screen NEGATIVE 02/11/20 02/11/20 02/12/20 16:30 20:51 05:30 WBC 13.9 H D 18.4 H 18.3 H RBC 4.59 4.79 4.61 Hgb 13.8 14.7 14.1 Hct 41.7 43.1 41.4 MCV 91 90 90 MCH 30.1 30.7 30.6 MCHC 33.1 34.1 34.1 RDW 15.8 H 16.2 H 15.9 H Plt Count 158 158 151 Seg Neutrophils % 88.1 H Sodium Potassium Chloride Carbon Dioxide Anion Gap BUN Creatinine Est GFR ( Amer) Est GFR (Non-Af Amer) Glucose Calcium Blood Type Antibody Screen 02/12/20 02/12/20 05:30 06:32 WBC RBC Hgb Hct MCV MCH MCHC RDW Plt Count Seg Neutrophils % Sodium Cancelled 136.9 L Potassium Cancelled 3.7 Chloride Cancelled 106 Carbon Dioxide Cancelled 22 Anion Gap Cancelled 9 BUN Cancelled 23 H Creatinine Cancelled 1.11 Est GFR ( Amer) Cancelled 57 L Est GFR (Non-Af Amer) Cancelled Glucose Cancelled 121 H Calcium Cancelled 9.2 Blood Type Antibody Screen Impressions: Guidance Fluoroscopy 02/11/20 00:00 IMPRESSION: IMAGE(S) OBTAINED DURING PROCEDURE. Chest X-Ray 02/11/20 16:31 IMPRESSION: Cannot exclude airspace disease in the left lower lobe, pneumonia versus atelectasis. Right internal jugular catheter and endotracheal tube as described. Injection port remains in place. All labs, radiographs, diagnostic studies and EKGs were personally reviewed: Yes In addition, reports of radiographic and diagnostic studies were read: Yes Assessment and Plan - Diagnosis (1) Colon cancer metastasized to liver Is this a current diagnosis for this admission?: Yes Plan: She has had a primary resection and reanastomosis. She has also had a liver resection of a right lobe metastatic mass. Extubated and doing well. (2) Hypotension after procedure Is this a current diagnosis for this admission?: Yes Plan: Hypotension after surgery may be somewhat misleading as her BP normally runs low and her MAP is over 65. Plan Summary: If levophed can be weaned off and she maintains a good BP, will downgrade. Critical Time Critical Time (minutes): 35 Level of Care: ICU Anticipated discharge: Home with Homehealth Anticipated DC Timeframe: Other -: 1. The care of a critical patient is a dynamic process. This note is a unit support representative synopsis but static in nature. The timeframe for treatments given in order is not necessarily the actual time these treatments may have been done. 2. This patient requires critical care secondary to ongoing requirements for therapy not offered or safe outside the critical care environment. Transfer to a lower level of care will result in altered life or limb morbidity and mortality. 3. Multidisciplinary rounds completed. 4. ABCDE bundle addressed.
[2020-02-12] MEDS: FAMOTIDINE INJ/PF 20 MG/2 ML SDV IV SCH ×2 (10:52→21:54)
[2020-02-13] MEDS: INSULIN LISPRO 100 UNIT/ML 3 ML VIAL SUBCUT SCH ×4 (00:16→17:36)
[2020-02-13] MEDS: METRONIDAZOLE 500 MG/NS RTU 500 MG/100 ML RTUPB IV SCH ×3 (02:55→17:42)
[2020-02-13] MEDS: OXYCODONE HCL IR 5 MG TABLET PO PRN ×2 (03:05→09:39)
[2020-02-13] MEDS: CEFAZOLIN 1 GM/D5W RTU 1 GM/50 ML RTUPB IV SCH ×3 (05:30→22:16)
[2020-02-13 05:54] LABS: ABSOLUTE LYMPHOCYTES (AUTO) 1.3 10^3/uL (0.5-4.7); BASOPHILS % (AUTO) 0.2 % (0-2); EOSINOPHILS % (AUTO) 0.1 % (0-6); HEMATOCRIT 36.7 % (36.0-47.0); HEMOGLOBIN 12.5 g/dL (12.0-15.5); LYMPHOCYTES % (AUTO) 7.4 % (13-45); MEAN CORPUSCULAR HEMOGLOBIN 30.3 pg (27.0-33.4); MEAN CORPUSCULAR HGB CONC 34.1 g/dL (32.0-36.0); MEAN CORPUSCULAR VOLUME 89 fl (80-97); MONOCYTES % (AUTO) 5.9 % (3-13); PLATELET COUNT 141 10^3/uL (150-450); RED BLOOD COUNT 4.12 10^6/uL (3.72-5.28); RED CELL DISTRIBUTION WIDTH 15.6 % (11.5-14.0); SEGMENTED NEUTROPHILS % (AUTO) 86.4 % (42-78); TOTAL CELLS COUNTED % (AUTO) 100 %; WHITE BLOOD COUNT 17.4 10^3/uL (4.0-10.5)
[2020-02-13 06:05] LABS: ANION GAP 7 (5-19); BLOOD UREA NITROGEN 22 mg/dL (7-20); CALCIUM 8.6 mg/dL (8.4-10.2); CARBON DIOXIDE 25 mmol/L (22-30); CHLORIDE 103 mmol/L (98-107); GLUCOSE 114 mg/dL (75-110); POTASSIUM 3.7 mmol/L (3.6-5.0)
--- NOTE | 2020-02-13 06:27 | PDOC PROGRESS REPORT ---
Subjective Progress Note for:: 02/13/20 Subjective:: FEELS WELL WANTS TO EAT Reason For Visit: METASTATIC COLON CANCER Physical Exam Vital Signs: Temp Pulse Resp BP Pulse Ox 98.0 F 78 25 H 146/74 H 97 02/13/20 05:40 02/13/20 05:40 02/13/20 05:55 02/13/20 05:55 02/13/20 05:55 Intake & Output 02/11/20 02/12/20 02/13/20 06:59 06:59 06:59 Intake Total 3926 477 Output Total 3165 865 Balance 761 -388 Weight 77.11 kg 77.2 kg 77.8 kg General appearance: PRESENT: no acute distress Head exam: PRESENT: normocephalic Eye exam: PRESENT: EOMI Mouth exam: PRESENT: moist Neck exam: PRESENT: full ROM Respiratory exam: PRESENT: clear to auscultation moni Cardiovascular exam: PRESENT: RRR Pulses: PRESENT: +2 pedal pulses bilateral Breast: PRESENT: Normal GI/Abdominal exam: PRESENT: soft Rectal exam: PRESENT: deferred Extremities exam: PRESENT: full ROM Musculoskeletal exam: PRESENT: full ROM Neurological exam: PRESENT: alert, awake, oriented to person, oriented to place Psychiatric exam: PRESENT: appropriate affect Skin exam: PRESENT: dry Results Laboratory Results: 02/13/20 05:44 02/13/20 05:44 02/11/20 02/12/20 02/13/20 10:20 06:32 05:44 WBC RBC Hgb Hct MCV MCH MCHC RDW Plt Count Seg Neutrophils % Sodium 136.9 L 134.6 L Potassium 3.7 3.7 Chloride 106 103 Carbon Dioxide 22 25 Anion Gap 9 7 BUN 23 H 22 H Creatinine 1.11 0.96 Est GFR ( Amer) 57 L > 60 Glucose 121 H 114 H Calcium 9.2 8.6 Blood Type O POSITIVE Antibody Screen NEGATIVE 02/13/20 05:44 WBC 17.4 H RBC 4.12 Hgb 12.5 Hct 36.7 MCV 89 MCH 30.3 MCHC 34.1 RDW 15.6 H Plt Count 141 L Seg Neutrophils % 86.4 H Sodium Potassium Chloride Carbon Dioxide Anion Gap BUN Creatinine Est GFR ( Amer) Glucose Calcium Blood Type Antibody Screen Impressions: Guidance Fluoroscopy 02/11/20 00:00 IMPRESSION: IMAGE(S) OBTAINED DURING PROCEDURE. Chest X-Ray 02/11/20 16:31 IMPRESSION: Cannot exclude airspace disease in the left lower lobe, pneumonia versus atelectasis. Right internal jugular catheter and endotracheal tube as described. Injection port remains in place. Assessment & Plan - Time Anticipated Discharge Disposition: Home, Self Care Anticipated Discharge Timeframe: UNK - Plan Summary Plan Summary: S/P RIGHT HEMICOLECTOMY WITH HEPATIC RESECTION DOING WELL WILL TRANSITION TO REGULAR FLOOR START PO FULL LIQUIDS.
--- NOTE | 2020-02-13 08:13 | PDOC CONSULTATION ---
Consultation Consult Date: 02/13/20 Attending physician:: JUAN CRAFT Provider Consulted: ENRIQUETA DUNBAR Consult reason:: Patient with newly diagnosed colon cancer status post resection, mechanical valve on lifelong anticoagulation, recent severe iron deficiency anemia History of Present Illness Admission Date/PCP: 02/11/20 09:37 JUAN CRAFT MD Patient complains of: Status post colon surgery History of Present Illness: ZENY PRITCHARD is a 80 year old female with recent diagnosis of stage IV colon cancer with primary cecal lesion with single liver metastasis. She had an extensive work-up as an outpatient including colonoscopy, biopsy of cecal lesion indicating adenocarcinoma, thereafter had staging CT chest abdomen pelvis which indicated a single liver lesion, PET/CT was positive in the liver lesion, CT-guided biopsy indicated adenocarcinoma consistent with colon primary, cardiac work-up was done, patient is cleared for primary colon resection plus primary liver resection. When he got on the operating table, her blood pressure dropped, they were able to get back up and proceed with surgery. Intraoperatively she got 4 units of packed red blood cells because of blood loss. She does have a mechanical valve so was on Lovenox for the last 4 weeks preparing for all of these procedures. Of note we were seeing her for warfarin management for a few years but earlier this summer we noticed that her hemoglobin had an acute drop and she was profoundly iron deficient, and that is what prompted the GI work-up and the above issues to be seen. She was given several doses of IV iron as an outpatient trying to keep up with her loss from the colonic mass. She looks pretty good today. Past Medical History Cardiac Medical History: Reports: Atrial Fibrillation - HX BUT NOT CURRENTLY , Congestive Heart Failure, Coronary Artery Disease Denies: Myocardial Infarction, Hyperlipidema, Hypertension, Peripheral Vascular Disease, Heart Murmur Pulmonary Medical History: Neurological Medical History: Renal/ Medical History: Malignancy Medical History: Denies: Breast Cancer, Cervical Cancer, Leukemia, Ovarian Cancer GI Medical History: Reports: Gastroesophageal Reflux Disease Denies: Cirrhosis, Crohn's Disease, Hiatal Hernia - ? Musculoskeltal Medical History: Reports: Arthritis Denies: Fibromyalgia Psychiatric Medical History: Denies: Depression Hematology: Reports: Anemia - HX BLOOD TRANSFUSION AND IRON TRANSFUSIONS Denies: Hemophilia, Sickle Cell Disease, Bleeding Tendencies Infectious Medical History: Denies: HIV Past Surgical History Past Surgical History: Reports: Appendectomy - ?, Hysterectomy, Orthopedic Surgery - R shoulder replacement, Valve Replacement - Mechanical aortic valve Denies: Amputation, Section, Cholecystectomy, Colostomy, Coronary Artery Bypass Graft, Gastric Bypass Surgery, Herniorrhaphy, Mastectomy, Pacemaker, Tonsillectomy, Tubal Ligation Social History Smoking Status: Unknown if Ever Smoked Frequency of Alcohol Use: Rare Hx Recreational Drug Use: No Drugs: None Hx Prescription Drug Abuse: No - Advance Directive Resuscitation Status: Full Code Family History Family History: Reviewed & Not Pertinent, Hypertension Parental Family History Reviewed: Yes Children Family History Reviewed: Yes Sibling(s) Family History Reviewed.: Yes Medication/Allergy Home Medications: Duloxetine HCl [Cymbalta] 30 mg PO DAILY 03/16/17 Cholecalciferol (Vitamin D3) [Vitamin D3 5000 unit Capsule] 5,000 unit PO DAILY 02/09/18 Furosemide [Lasix 20 mg Tablet] 40 mg PO DAILY 02/09/18 Pantoprazole Sodium [Protonix] 40 mg PO DAILY 02/09/18 Enoxaparin Sodium [Lovenox Inj 60 Mg/0.6 Ml Disp.Syrin] 60 mg SUBCUT Q12 02/12/20 Fluocinonide 1 applic TP ASDIR PRN 02/12/20 Ketoconazole [Nizoral 2% Shampoo 120 ml Bottle] 1 applic TOP ASDIR PRN 02/12/20 Allergies/Adverse Reactions: [id number] Reductase Inhibitor Adverse Reaction (Verified 02/11/20 10:18) Review of Systems Constitutional: ABSENT: chills, fever(s), headache(s), weight gain, weight loss Eyes: ABSENT: visual disturbances Ears: ABSENT: hearing changes Cardiovascular: ABSENT: chest pain, dyspnea on exertion, edema, orthropnea, palpitations Respiratory: ABSENT: cough, hemoptysis Gastrointestinal: ABSENT: abdominal pain, constipation, diarrhea, hematemesis, hematochezia, nausea, vomiting Genitourinary: ABSENT: dysuria, hematuria Musculoskeletal: ABSENT: joint swelling Integumentary: ABSENT: rash, wounds Neurological: ABSENT: abnormal gait, abnormal speech, confusion, dizziness, focal weakness, syncope Psychiatric: ABSENT: anxiety, depression, homidical ideation, suicidal ideation Endocrine: ABSENT: cold intolerance, heat intolerance, polydipsia, polyuria Hematologic/Lymphatic: ABSENT: easy bleeding, easy bruising Physical Exam Vital Signs: Temp Pulse Resp BP Pulse Ox 98.7 F 78 19 102/45 L 95 02/13/20 06:00 02/13/20 06:00 02/13/20 06:00 02/13/20 06:00 02/13/20 06:00 Intake & Output 02/12/20 02/13/20 02/14/20 06:59 06:59 06:59 Intake Total 3926 477 Output Total 3165 865 Balance 761 -388 Weight 77.2 kg 77.8 kg General appearance: PRESENT: no acute distress, well-developed, well-nourished Head exam: PRESENT: atraumatic, normocephalic Eye exam: PRESENT: conjunctiva pink, EOMI, PERRLA. ABSENT: scleral icterus Ear exam: PRESENT: normal external ear exam Mouth exam: PRESENT: moist, tongue midline Neck exam: ABSENT: carotid bruit, JVD, lymphadenopathy, thyromegaly Respiratory exam: PRESENT: clear to auscultation moni. ABSENT: rales, rhonchi, wheezes Cardiovascular exam: PRESENT: RRR. ABSENT: diastolic murmur, rubs, systolic murmur Pulses: PRESENT: normal dorsalis pedis pul Vascular exam: PRESENT: normal capillary refill GI/Abdominal exam: PRESENT: normal bowel sounds, soft. ABSENT: distended, guarding, mass, organolmegaly, rebound, tenderness Rectal exam: PRESENT: deferred Extremities exam: PRESENT: full ROM. ABSENT: calf tenderness, clubbing, pedal edema Neurological exam: PRESENT: alert, awake, oriented to person, oriented to place, oriented to time, oriented to situation, CN II-XII grossly intact. ABSENT: motor sensory deficit Psychiatric exam: PRESENT: appropriate affect, normal mood. ABSENT: homicidal ideation, suicidal ideation Skin exam: PRESENT: dry, intact, warm. ABSENT: cyanosis, rash Results Laboratory Results: 02/13/20 05:44 02/13/20 05:44 02/11/20 02/13/20 02/13/20 10: 05:44 05:44 WBC 17.4 H RBC 4.12 Hgb 12.5 Hct 36.7 MCV 89 MCH 30.3 MCHC 34.1 RDW 15.6 H Plt Count 141 L Seg Neutrophils % 86.4 H Sodium 134.6 L Potassium 3.7 Chloride 103 Carbon Dioxide 25 Anion Gap 7 BUN 22 H Creatinine 0.96 Est GFR ( Amer) > 60 Glucose 114 H Calcium 8.6 Blood Type O POSITIVE Antibody Screen NEGATIVE Impressions: Guidance Fluoroscopy 02/11/20 00:00 IMPRESSION: IMAGE(S) OBTAINED DURING PROCEDURE. Chest X-Ray 02/11/20 16:31 IMPRESSION: Cannot exclude airspace disease in the left lower lobe, pneumonia versus atelectasis. Right internal jugular catheter and endotracheal tube as described. Injection port remains in place. Assessment & Plan - Diagnosis (1) Valvular heart disease Is this a current diagnosis for this admission?: Yes Plan: Mechanical valve, we will reinitiate Lovenox today, discussed with primary team as well as hospitalist team were in agreement. Hopefully will not have bleeding. (2) Colon cancer metastasized to liver Is this a current diagnosis for this admission?: Yes Plan: Port placement done, we will have to see how strong patient is for consideration of adjuvant chemotherapy. (3) Anemia Qualifiers: Anemia type: iron deficiency Iron deficiency anemia type: chronic blood loss Qualified Code(s): D50.0 - Iron deficiency anemia secondary to blood loss (chronic) Is this a current diagnosis for this admission?: Yes Plan: Blood loss from previous colonic mass but now from procedure, we will need to follow hemoglobin closely while on blood thinner, hopefully will be stable. - Time Time Spent: Greater than 70 Minutes - Inpatient Certification Based on my medical assessment, after consideration of the patient's comorbidities, presenting symptoms, or acuity I expect that the services needed warrant INPATIENT care.: Yes I certify that my determination is in accordance with my understanding of Medicare's requirements for reasonable and necessary INPATIENT services [42 CFR 412.3e].: Yes
[2020-02-13] MEDS: FAMOTIDINE INJ/PF 20 MG/2 ML SDV IV SCH ×2 (09:38→22:16)
--- NOTE | 2020-02-13 10:05 | PDOC PROGRESS REPORT ---
Subjective Progress Note for:: 02/13/20 Subjective:: Patient was initially admitted for the colon resection and hepatic resections as outpatient procedures patient developed hypotensive and the blood loss and patient was admitting in the intensive care units After surgery in ICU patient was extubated received 4 units of the blood and tumbler operator called this morning to transfer the patient's in the medical floor where patient is very stable When I saw the patient in the floor in the morning currently doing well denied any chest pain no short of breath patient's pain inabilities are currently controlled patient's wants to eat Patient have a heart valve disease with a mechanical valve currently follow Dr. cAosta cardiology as per discussed with him the echocardiogram before the procedure was all stable patient is currently denied any complaint suggest the continues to anticoagulations if the okay with the surgery Patient also seen by Dr. Vogel the senior php developer and oncologist who follow the patient's Coumadin level start the Lovenox Patient otherwise denied any fever no chills His white count is slightly elevated Reason For Visit: METASTATIC COLON CANCER Physical Exam Vital Signs: Temp Pulse Resp BP Pulse Ox 98.2 F 76 18 116/55 L 91 L 02/13/20 07:14 02/13/20 07:14 02/13/20 07:14 02/13/20 07:14 02/13/20 07:14 Intake & Output 02/12/20 02/13/20 02/14/20 06:59 06:59 06:59 Intake Total 3926 477 Output Total 3165 865 Balance 761 -388 Weight 77.2 kg 77.8 kg General appearance: PRESENT: no acute distress, well-developed, well-nourished Head exam: PRESENT: atraumatic, normocephalic Eye exam: PRESENT: conjunctiva pink, EOMI, PERRLA. ABSENT: scleral icterus Ear exam: PRESENT: normal external ear exam Mouth exam: PRESENT: moist, tongue midline Neck exam: PRESENT: full ROM. ABSENT: carotid bruit, JVD, lymphadenopathy, thyromegaly Respiratory exam: PRESENT: clear to auscultation moni Cardiovascular exam: PRESENT: RRR. ABSENT: diastolic murmur, rubs, systolic murmur Pulses: PRESENT: normal dorsalis pedis pul, +2 pedal pulses bilateral Vascular exam: PRESENT: normal capillary refill GI/Abdominal exam: ABSENT: distended, guarding, mass, organolmegaly, rebound, tenderness Additonal comments: Surgical dressing and drain is all intact Rectal exam: PRESENT: deferred Neurological exam: PRESENT: alert, awake, oriented to person, oriented to place, oriented to time, oriented to situation, CN II-XII grossly intact. ABSENT: motor sensory deficit Psychiatric exam: PRESENT: appropriate affect, normal mood. ABSENT: homicidal ideation, suicidal ideation Skin exam: PRESENT: dry, intact, warm. ABSENT: cyanosis, rash Results Laboratory Results: 02/13/20 05:44 02/13/20 05:44 02/11/20 02/13/20 02/13/20 10: 05:44 05:44 WBC 17.4 H RBC 4.12 Hgb 12.5 Hct 36.7 MCV 89 MCH 30.3 MCHC 34.1 RDW 15.6 H Plt Count 141 L Seg Neutrophils % 86.4 H Sodium 134.6 L Potassium 3.7 Chloride 103 Carbon Dioxide 25 Anion Gap 7 BUN 22 H Creatinine 0.96 Est GFR ( Amer) > 60 Glucose 114 H Calcium 8.6 Blood Type O POSITIVE Antibody Screen NEGATIVE Impressions: Guidance Fluoroscopy 02/11/20 00:00 IMPRESSION: IMAGE(S) OBTAINED DURING PROCEDURE. Chest X-Ray 02/11/20 16:31 IMPRESSION: Cannot exclude airspace disease in the left lower lobe, pneumonia versus atelectasis. Right internal jugular catheter and endotracheal tube as described. Injection port remains in place. Assessment & Plan - Diagnosis (1) Atrial fibrillation Qualifiers: Atrial fibrillation type: unspecified Qualified Code(s): I48.91 - Unspecified atrial fibrillation Is this a current diagnosis for this admission?: Yes Plan: Currently all stable continues to current medication as per discussed with the cardiology restart the Coumadin if okay with the surgery (2) Colon cancer metastasized to liver Is this a current diagnosis for this admission?: Yes Plan: Status post surgery with the colon resection and hepatic resections currently doing well follow-up with the surgery (3) Hypotension after procedure Is this a current diagnosis for this admission?: Yes Plan: Currently all resolved (4) Anemia Qualifiers: Anemia type: iron deficiency Iron deficiency anemia type: chronic blood los s Qualified Code(s): D50.0 - Iron deficiency anemia secondary to blood loss (chronic) Is this a current diagnosis for this admission?: Yes Plan: Currently follow with a senior php developer status post 4 unit of blood transfusions (5) Congestive heart failure Qualifiers: Heart failure type: combined systolic and diastolic Heart failure chronicity: chronic Qualified Code(s): I50.42 - Chronic combined systolic (congestive) and diastolic (congestive) heart failure Is this a current diagnosis for this admission?: Yes Plan: Currently all stable (6) Valvular heart disease Is this a current diagnosis for this admission?: Yes Plan: Currently on anticoagulations restart the Lovenox today - Time Time Spent with patient: 15-24 minutes Level of Care: TELE Medications reviewed and adjusted accordingly: Yes Anticipated discharge: Home with Homehealth, Other Anticipated DC Timeframe: Other - Plan Summary Plan Summary: Review the hospital's ICU reports surgical reports reconciliate the medications discussed with the surgery and senior php developer and transverse abdominal muscle nurse
--- NOTE | 2020-02-13 12:43 | EKG REPORT ---
SEVERITY:- NORMAL ECG - SINUS RHYTHM : Confirmed by: Kiel Alex MD 13-Feb-2020 12:43:34
[2020-02-13] MEDS: FUROSEMIDE INJ/PF 20 MG/2 ML SDV IV SCH (17:41)
[2020-02-13] MEDS: ENOXAPARIN SODIUM INJ 60 MG/0.6 ML DISP.SYRIN SUBCUT SCH (17:41)
[2020-02-14] MEDS: METRONIDAZOLE 500 MG/NS RTU 500 MG/100 ML RTUPB IV SCH ×3 (02:56→17:51)
[2020-02-14] MEDS: CEFAZOLIN 1 GM/D5W RTU 1 GM/50 ML RTUPB IV SCH ×3 (05:40→21:52)
[2020-02-14] MEDS: ENOXAPARIN SODIUM INJ 60 MG/0.6 ML DISP.SYRIN SUBCUT SCH ×2 (05:40→18:48)
[2020-02-14 06:07] LABS: ABSOLUTE BASOPHILS # (AUTO) 0.1 10^3/uL (0.0-0.2); ABSOLUTE LYMPHOCYTES (AUTO) 1.3 10^3/uL (0.5-4.7); ABSOLUTE MONOCYTES (AUTO) 0.7 10^3/uL (0.1-1.4); BASOPHILS % (AUTO) 0.6 % (0-2); EOSINOPHILS % (AUTO) 0.3 % (0-6); HEMATOCRIT 33.9 % (36.0-47.0); HEMOGLOBIN 11.6 g/dL (12.0-15.5); LYMPHOCYTES % (AUTO) 9.6 % (13-45); MEAN CORPUSCULAR HEMOGLOBIN 30.7 pg (27.0-33.4); MEAN CORPUSCULAR HGB CONC 34.1 g/dL (32.0-36.0); MEAN CORPUSCULAR VOLUME 90 fl (80-97); MONOCYTES % (AUTO) 5.6 % (3-13); PLATELET COUNT 140 10^3/uL (150-450); RED BLOOD COUNT 3.76 10^6/uL (3.72-5.28); RED CELL DISTRIBUTION WIDTH 15.5 % (11.5-14.0); SEGMENTED NEUTROPHILS % (AUTO) 83.9 % (42-78); TOTAL CELLS COUNTED % (AUTO) 100 %; WHITE BLOOD COUNT 13.1 10^3/uL (4.0-10.5)
[2020-02-14 06:13] LABS: INTERNATIONAL RATION (INR) 1.28; PROTHROMBIN TIME 16.2 SEC (11.4-15.4)
[2020-02-14 06:25] LABS: ALBUMIN 2.6 g/dL (3.5-5.0); ALKALINE PHOSPHATASE 70 U/L (38-126); ANION GAP 6 (5-19); ASPARTATE AMINO TRANSFERASE 168 U/L (14-36); BILIRUBIN,DIRECT 0.2 mg/dL (0.0-0.4); BILIRUBIN,TOTAL 0.8 mg/dL (0.2-1.3); BLOOD UREA NITROGEN 14 mg/dL (7-20); CALCIUM 8.4 mg/dL (8.4-10.2); CARBON DIOXIDE 27 mmol/L (22-30); CHLORIDE 103 mmol/L (98-107); GLUCOSE 103 mg/dL (75-110); POTASSIUM 3.3 mmol/L (3.6-5.0); TOTAL PROTEIN 4.7 g/dL (6.3-8.2)
[2020-02-14] MEDS: INSULIN LISPRO 100 UNIT/ML 3 ML VIAL SUBCUT SCH ×4 (06:39→17:47)
[2020-02-14] MEDS: OXYCODONE HCL IR 5 MG TABLET PO PRN ×3 (08:45→22:55)
--- NOTE | 2020-02-14 09:06 | PDOC PROGRESS REPORT ---
Subjective Progress Note for:: 02/14/20 Subjective:: feels ok bruno full liquids ambulated yesterday Reason For Visit: METASTATIC COLON CANCER Physical Exam Vital Signs: Temp Pulse Resp BP Pulse Ox 98.4 F 82 17 100/60 95 02/14/20 00:04 02/14/20 07:00 02/14/20 00:04 02/14/20 00:04 02/14/20 03:11 Intake & Output 02/13/20 02/14/20 02/15/20 06:59 06:59 05:59 Intake Total 527 1256 Output Total 865 1100 Balance -338 156 Weight 77.8 kg 62.1 kg General appearance: PRESENT: no acute distress Head exam: PRESENT: normocephalic Eye exam: PRESENT: EOMI Ear exam: PRESENT: normal external ear exam Mouth exam: PRESENT: moist Teeth exam: PRESENT: poor dentation Neck exam: PRESENT: full ROM Respiratory exam: PRESENT: clear to auscultation moni Cardiovascular exam: PRESENT: RRR Pulses: PRESENT: normal radial pulses, normal femoral pulses Vascular exam: PRESENT: normal capillary refill Breast: PRESENT: Normal GI/Abdominal exam: PRESENT: soft Rectal exam: PRESENT: deferred Extremities exam: PRESENT: full ROM Musculoskeletal exam: PRESENT: full ROM Neurological exam: PRESENT: alert, awake, oriented to person, oriented to place Psychiatric exam: PRESENT: appropriate affect Skin exam: PRESENT: dry Results Laboratory Results: 02/14/20 05:35 02/14/20 05:35 02/14/20 02/14/20 02/14/20 05:35 05:35 05:35 WBC 13.1 H RBC 3.76 Hgb 11.6 L Hct 33.9 L MCV 90 MCH 30.7 MCHC 34.1 RDW 15.5 H Plt Count 140 L Seg Neutrophils % 83.9 H Sodium 136.3 L Potassium 3.3 L Chloride 103 Carbon Dioxide 27 Anion Gap 6 BUN 14 Creatinine 0.76 Est GFR ( Amer) > 60 Glucose 103 Calcium 8.4 Magnesium 2.1 Total Bilirubin 0.8 AST 168 H Alkaline Phosphatase 70 Total Protein 4.7 L Albumin 2.6 L Impressions: Guidance Fluoroscopy 02/11/20 00:00 IMPRESSION: IMAGE(S) OBTAINED DURING PROCEDURE. Chest X-Ray 02/11/20 16:31 IMPRESSION: Cannot exclude airspace disease in the left lower lobe, pneumonia versus atelectasis. Right internal jugular catheter and endotracheal tube as described. Injection port remains in place. Assessment & Plan - Time Anticipated Discharge Disposition: Home, Self Care Anticipated Discharge Timeframe: unk - Plan Summary Plan Summary: pod 3 s/p right hemicolectomy with partial right hepatectomy doing well was up ambulating yesterday bruno full liquids labs reviewd wbc trending down hct stable, now on lovenox. will dc campbell today cont full liquids
[2020-02-14] MEDS: FUROSEMIDE INJ/PF 20 MG/2 ML SDV IV SCH ×2 (10:17→18:49)
[2020-02-14] MEDS: DULOXETINE HCL 30 MG CAPSULE.DR PO SCH (10:20)
[2020-02-14] MEDS: FAMOTIDINE INJ/PF 20 MG/2 ML SDV IV SCH ×2 (10:21→21:52)
--- NOTE | 2020-02-14 12:17 | PDOC PROGRESS REPORT ---
Subjective Progress Note for:: 02/14/20 Subjective:: Not yet passed gas but doing well. Ready to get urinary catheter out and ready to start moving a little bit more. No bleeding as of yet. Reason For Visit: METASTATIC COLON CANCER Physical Exam Vital Signs: Temp Pulse Resp BP Pulse Ox 98.5 F 72 16 78/54 L 93 02/14/20 07:32 02/14/20 07:32 02/14/20 07:32 02/14/20 07:32 02/14/20 07:32 Intake & Output 02/13/20 02/14/20 02/15/20 06:59 06:59 05:59 Intake Total 527 1256 Output Total 865 1100 Balance -338 156 Weight 77.8 kg 62.1 kg General appearance: PRESENT: no acute distress, well-developed, well-nourished Head exam: PRESENT: atraumatic, normocephalic Eye exam: PRESENT: conjunctiva pink, EOMI, PERRLA. ABSENT: scleral icterus Ear exam: PRESENT: normal external ear exam Mouth exam: PRESENT: moist, tongue midline Neck exam: ABSENT: carotid bruit, JVD, lymphadenopathy, thyromegaly Respiratory exam: PRESENT: clear to auscultation moni. ABSENT: rales, rhonchi, wheezes Cardiovascular exam: PRESENT: RRR. ABSENT: diastolic murmur, rubs, systolic murmur Pulses: PRESENT: normal dorsalis pedis pul Vascular exam: PRESENT: normal capillary refill GI/Abdominal exam: PRESENT: normal bowel sounds, soft. ABSENT: distended, guarding, mass, organolmegaly, rebound, tenderness Rectal exam: PRESENT: deferred Extremities exam: PRESENT: full ROM. ABSENT: calf tenderness, clubbing, pedal edema Neurological exam: PRESENT: alert, awake, oriented to person, oriented to place, oriented to time, oriented to situation, CN II-XII grossly intact. ABSENT: motor sensory deficit Psychiatric exam: PRESENT: appropriate affect, normal mood. ABSENT: homicidal ideation, suicidal ideation Skin exam: PRESENT: dry, intact, warm. ABSENT: cyanosis, rash Results Laboratory Results: 02/14/20 05:35 02/14/20 05:35 02/14/20 02/14/20 02/14/20 05:35 05:35 05:35 WBC 13.1 H RBC 3.76 Hgb 11.6 L Hct 33.9 L MCV 90 MCH 30.7 MCHC 34.1 RDW 15.5 H Plt Count 140 L Seg Neutrophils % 83.9 H Sodium 136.3 L Potassium 3.3 L Chloride 103 Carbon Dioxide 27 Anion Gap 6 BUN 14 Creatinine 0.76 Est GFR ( Amer) > 60 Glucose 103 Calcium 8.4 Magnesium 2.1 Total Bilirubin 0.8 AST 168 H Alkaline Phosphatase 70 Total Protein 4.7 L Albumin 2.6 L Impressions: Guidance Fluoroscopy 02/11/20 00:00 IMPRESSION: IMAGE(S) OBTAINED DURING PROCEDURE. Chest X-Ray 02/11/20 16:31 IMPRESSION: Cannot exclude airspace disease in the left lower lobe, pneumonia v ersus atelectasis. Right internal jugular catheter and endotracheal tube as described. Injection port remains in place. Assessment & Plan - Diagnosis (1) Valvular heart disease Is this a current diagnosis for this admission?: Yes Plan: Continue with Lovenox (2) Colon cancer metastasized to liver Is this a current diagnosis for this admission?: Yes Plan: Status post surgery, will follow (3) Anemia Qualifiers: Anemia type: iron deficiency Iron deficiency anemia type: chronic blood loss Qualified Code(s): D50.0 - Iron deficiency anemia secondary to blood loss (chronic) Is this a current diagnosis for this admission?: Yes Plan: Hemoglobin 11, will follow - Time Time Spent with patient: 35 or more minutes
[2020-02-14] MEDS: POTASSIUM CHLORIDE 20 MEQ/50 ML RTU IV SCH ×2 (16:09→17:52)
--- NOTE | 2020-02-14 22:58 | PDOC PROGRESS REPORT ---
Subjective Progress Note for:: 02/14/20 Subjective:: patient seen by the bedside, patient status post right hemicolectomy and hepatectomy, on Lovenox bridge, history of mechanical heart valve. Patient has no new complaint today, postoperative recovery is uneventful so far Reason For Visit: METASTATIC COLON CANCER Physical Exam Vital Signs: Temp Pulse Resp BP Pulse Ox 97.8 F 93 20 120/78 90 L 02/14/20 15:37 02/14/20 19:00 02/14/20 15:37 02/14/20 18:58 02/14/20 15:37 Intake & Output 02/13/20 02/14/20 02/15/20 06:59 06:59 05:59 Intake Total 527 1256 973 Output Total 865 1100 935 Balance -338 156 38 Weight 77.8 kg 62.1 kg General appearance: PRESENT: no acute distress Eye exam: PRESENT: PERRLA Respiratory exam: PRESENT: clear to auscultation moni Cardiovascular exam: PRESENT: +S1, +S2 GI/Abdominal exam: PRESENT: soft Neurological exam: PRESENT: alert Results Laboratory Results: 02/14/20 05:35 02/14/20 05:35 02/14/20 02/14/20 02/14/20 05:35 05:35 05:35 WBC 13.1 H RBC 3.76 Hgb 11.6 L Hct 33.9 L MCV 90 MCH 30.7 MCHC 34.1 RDW 15.5 H Plt Count 140 L Seg Neutrophils % 83.9 H Sodium 136.3 L Potassium 3.3 L Chloride 103 Carbon Dioxide 27 Anion Gap 6 BUN 14 Creatinine 0.76 Est GFR ( Amer) > 60 Glucose 103 Calcium 8.4 Magnesium 2.1 Total Bilirubin 0.8 AST 168 H Alkaline Phosphatase 70 Total Protein 4.7 L Albumin 2.6 L Impressions: Guidance Fluoroscopy 02/11/20 00:00 IMPRESSION: IMAGE(S) OBTAINED DURING PROCEDURE. Chest X-Ray 02/11/20 16:31 IMPRESSION: Cannot exclude airspace disease in the left lower lobe, pneumonia versus atelectasis. Right internal jugular catheter and endotracheal tube as described. Injection port remains in place. Assessment & Plan - Diagnosis (1) Colon cancer metastasized to liver Is this a current diagnosis for this admission?: Yes (2) Postprocedural hypotension Is this a current diagnosis for this admission?: Yes (3) Atrial fibrillation Qualifiers: Atrial fibrillation type: unspecified Qualified Code(s): I48.91 - Unspeci fied atrial fibrillation Is this a current diagnosis for this admission?: Yes - Time Time Spent with patient: 35 or more minutes Level of Care: MEDICAL Medications reviewed and adjusted accordingly: Yes Anticipated discharge: Home Anticipated DC Timeframe: Other - Plan Summary Plan Summary: Patient seen by the bedside continue Lovenox bridge, continue other treatment
[2020-02-15] MEDS: INSULIN LISPRO 100 UNIT/ML 3 ML VIAL SUBCUT SCH ×5 (00:35→23:16)
[2020-02-15] MEDS: METRONIDAZOLE 500 MG/NS RTU 500 MG/100 ML RTUPB IV SCH ×3 (02:13→17:15)
[2020-02-15] MEDS: CEFAZOLIN 1 GM/D5W RTU 1 GM/50 ML RTUPB IV SCH ×3 (05:34→21:06)
[2020-02-15] MEDS: ENOXAPARIN SODIUM INJ 60 MG/0.6 ML DISP.SYRIN SUBCUT SCH ×2 (05:52→17:29)
[2020-02-15 06:46] LABS: ANION GAP 10 (5-19); BLOOD UREA NITROGEN 10 mg/dL (7-20); CARBON DIOXIDE 25 mmol/L (22-30); CHLORIDE 102 mmol/L (98-107); GLUCOSE 126 mg/dL (75-110); POTASSIUM 3.5 mmol/L (3.6-5.0)
[2020-02-15] MEDS ORDERED: BISACODYL 10 MG SUPP.RECT PR ONE ×2 (08:31→12:00)
--- NOTE | 2020-02-15 08:31 | PDOC PROGRESS REPORT ---
Subjective Progress Note for:: 02/15/20 Subjective:: feels ok sitting up at side of bed Reason For Visit: METASTATIC COLON CANCER Physical Exam Vital Signs: Temp Pulse Resp BP Pulse Ox 98.2 F 79 20 123/66 94 02/14/20 23:01 02/15/20 07:00 02/15/20 02:25 02/15/20 02:25 02/15/20 02:25 Intake & Output 02/14/20 02/15/20 02/16/20 07:59 06:59 06:59 Intake Total Output Total Balance Weight General appearance: PRESENT: no acute distress Head exam: PRESENT: normocephalic Eye exam: PRESENT: EOMI Ear exam: PRESENT: normal external ear exam Mouth exam: PRESENT: moist Neck exam: PRESENT: full ROM Respiratory exam: PRESENT: clear to auscultation moni Cardiovascular exam: PRESENT: RRR Pulses: PRESENT: normal radial pulses, normal femoral pulses Breast: PRESENT: Normal GI/Abdominal exam: PRESENT: soft Rectal exam: PRESENT: deferred Extremities exam: PRESENT: full ROM Neurological exam: PRESENT: alert, awake, oriented to person, oriented to place Psychiatric exam: PRESENT: appropriate affect Skin exam: PRESENT: dry Results Laboratory Results: 02/14/20 05:35 02/15/20 05:30 02/15/20 05:30 Sodium 137.4 Potassium 3.5 L Chloride 102 Carbon Dioxide 25 Anion Gap 10 BUN 10 Creatinine 0.72 Est GFR ( Amer) > 60 Glucose 126 H Calcium 8.0 L Impressions: Guidance Fluoroscopy 02/11/20 00:00 IMPRESSION: IMAGE(S) OBTAINED DURING PROCEDURE. Chest X-Ray 02/11/20 16:31 IMPRESSION: Cannot exclude airspace disease in the left lower lobe, pneumonia versus atelectasis. Right internal jugular catheter and endotracheal tube as described. Injection port remains in place. Assessment & Plan - Time Anticipated Discharge Disposition: Home, Self Care Anticipated Discharge Timeframe: within 48 hours - Plan Summary Plan Summary: doing ok no labs today bruno full liquids no flatus or bm as yet will order dulcolax check cbc in am
[2020-02-15] MEDS: FUROSEMIDE INJ/PF 20 MG/2 ML SDV IV SCH ×2 (10:32→17:15)
[2020-02-15] MEDS: FAMOTIDINE INJ/PF 20 MG/2 ML SDV IV SCH ×2 (10:32→21:07)
[2020-02-15] MEDS: DULOXETINE HCL 30 MG CAPSULE.DR PO SCH (10:32)
--- NOTE | 2020-02-15 13:01 | PDOC PROGRESS REPORT ---
Subjective Progress Note for:: 02/15/20 Subjective:: patient seen by the bedside, patient status post right hemicolectomy and hepatectomy, on Lovenox bridge, history of mechanical heart valve. Patient has no new complaint today, postoperative recovery is uneventful so far Reason For Visit: METASTATIC COLON CANCER Physical Exam Vital Signs: Temp Pulse Resp BP Pulse Ox 96.8 F L 79 14 107/50 L 88 L 02/15/20 10:00 02/15/20 10:00 02/15/20 10:00 02/15/20 10:00 02/15/20 08:55 Intake & Output 02/14/20 02/15/20 02/16/20 07:59 06:59 06:59 Intake Total 100 Output Total Balance 100 Weight General appearance: PRESENT: no acute distress Eye exam: PRESENT: PERRLA Respiratory exam: PRESENT: clear to auscultation moni Cardiovascular exam: PRESENT: +S1, +S2 GI/Abdominal exam: PRESENT: soft Neurological exam: PRESENT: alert Results Laboratory Results: 02/14/20 05:35 02/15/20 05:30 02/15/20 05:30 Sodium 137.4 Potassium 3.5 L Chloride 102 Carbon Dioxide 25 Anion Gap 10 BUN 10 Creatinine 0.72 Est GFR ( Amer) > 60 Glucose 126 H Calcium 8.0 L Impressions: Guidance Fluoroscopy 02/11/20 00:00 IMPRESSION: IMAGE(S) OBTAINED DURING PROCEDURE. Chest X-Ray 02/11/20 16:31 IMPRESSION: Cannot exclude airspace disease in the left lower lobe, pneumonia versus atelectasis. Right internal jugular catheter and endotracheal tube as described. Injection port remains in place. Assessment & Plan - Diagnosis (1) Colon cancer metastasized to liver Is this a current diagnosis for this admission?: Yes (2) Postprocedural hypotension Is this a current diagnosis for this admission?: Yes (3) Atrial fibrillation Qualifiers: Atrial fibrillation type: unspecified Qualified Code(s): I48.91 - Unspecified atrial fibrillation Is this a current diagnosis for this admission?: Yes - Time Time Spent with patient: 25-34 minutes Level of Care: MEDICAL Anticipated discharge: Home Anticipated DC Timeframe: Other - Plan Summary Plan Summary: Continue present treatment
[2020-02-15] MEDS: OXYCODONE HCL IR 5 MG TABLET PO PRN ×2 (13:22→20:38)
[2020-02-15] MEDS: METOPROLOL TARTRATE 25 MG TABLET PO SCH ×2 (17:03→21:05)
[2020-02-16] MEDS: OXYCODONE HCL IR 5 MG TABLET PO PRN ×2 (02:40→17:11)
[2020-02-16] MEDS: METRONIDAZOLE 500 MG/NS RTU 500 MG/100 ML RTUPB IV SCH ×3 (02:40→17:09)
[2020-02-16] MEDS: CEFAZOLIN 1 GM/D5W RTU 1 GM/50 ML RTUPB IV SCH ×3 (05:04→22:52)
[2020-02-16] MEDS: ENOXAPARIN SODIUM INJ 60 MG/0.6 ML DISP.SYRIN SUBCUT SCH ×2 (05:05→17:09)
[2020-02-16 06:22] LABS: ABSOLUTE BASOPHILS # (AUTO) 0.1 10^3/uL (0.0-0.2); ABSOLUTE EOSINOPHILS # (AUTO) 0.3 10^3/uL (0.0-0.6); ABSOLUTE MONOCYTES (AUTO) 0.8 10^3/uL (0.1-1.4); BASOPHILS % (AUTO) 0.6 % (0-2); EOSINOPHILS % (AUTO) 3.1 % (0-6); HEMATOCRIT 34.9 % (36.0-47.0); HEMOGLOBIN 11.9 g/dL (12.0-15.5); LYMPHOCYTES % (AUTO) 11.4 % (13-45); MEAN CORPUSCULAR HEMOGLOBIN 30.9 pg (27.0-33.4); MEAN CORPUSCULAR HGB CONC 34.1 g/dL (32.0-36.0); MEAN CORPUSCULAR VOLUME 91 fl (80-97); PLATELET COUNT 180 10^3/uL (150-450); RED BLOOD COUNT 3.85 10^6/uL (3.72-5.28); RED CELL DISTRIBUTION WIDTH 15.6 % (11.5-14.0); SEGMENTED NEUTROPHILS % (AUTO) 75.9 % (42-78); TOTAL CELLS COUNTED % (AUTO) 100 %; WHITE BLOOD COUNT 9.2 10^3/uL (4.0-10.5)
[2020-02-16 06:47] LABS: ANION GAP 9 (5-19); BLOOD UREA NITROGEN 9 mg/dL (7-20); CARBON DIOXIDE 27 mmol/L (22-30); CHLORIDE 99 mmol/L (98-107); GLUCOSE 96 mg/dL (75-110); POTASSIUM 3.2 mmol/L (3.6-5.0)
--- NOTE | 2020-02-16 07:43 | Operative Report ---
Nonrecallable Operative Report DATE OF SURGERY: 02/11/20 PREOPERATIVE DIAGNOSIS: Right colon cancer with metastatic disease to the right lobe of the liver POSTOPERATIVE DIAGNOSIS: Same OPERATION: Port-A-Cath placement left chest with right hemicolectomy and right partial hepatic lobectomy SURGEON: LISA FLETCHER ANESTHESIA: GA TISSUE REMOVED OR ALTERED: Right hepatic lobe right colon COMPLICATIONS: None ESTIMATED BLOOD LOSS: 1200 cc INTRAOPERATIVE FINDINGS: See note
--- NOTE | 2020-02-16 07:47 | PDOC PROGRESS REPORT ---
Subjective Progress Note for:: 02/16/20 Subjective:: feels ok passing flatus, no stool Reason For Visit: METASTATIC COLON CANCER Physical Exam Vital Signs: Temp Pulse Resp BP Pulse Ox 98.6 F 71 20 92/59 L 92 02/16/20 02:20 02/16/20 02:20 02/16/20 02:20 02/16/20 02:20 02/16/20 02:20 Intake & Output 02/15/20 02/16/20 02/17/20 06:59 06:59 06:59 Intake Total 1430 Output Total 1150 Balance 280 Weight 58.2 kg General appearance: PRESENT: no acute distress Head exam: PRESENT: normocephalic Eye exam: PRESENT: EOMI Ear exam: PRESENT: normal external ear exam Mouth exam: PRESENT: moist Neck exam: PRESENT: full ROM Respiratory exam: PRESENT: clear to auscultation moni Cardiovascular exam: PRESENT: RRR Pulses: PRESENT: normal radial pulses, normal femoral pulses Breast: PRESENT: Normal GI/Abdominal exam: PRESENT: soft Rectal exam: PRESENT: deferred Extremities exam: PRESENT: full ROM Musculoskeletal exam: PRESENT: full ROM Neurological exam: PRESENT: alert, awake, oriented to person, oriented to place Psychiatric exam: PRESENT: appropriate affect Skin exam: PRESENT: dry Results Laboratory Results: 02/16/20 04:55 02/16/20 04:55 02/16/20 02/16/20 04:55 04:55 WBC 9.2 RBC 3.85 Hgb 11.9 L Hct 34.9 L MCV 91 MCH 30.9 MCHC 34.1 RDW 15.6 H Plt Count 180 Seg Neutrophils % 75.9 Sodium 134.9 L Potassium 3.2 L Chloride 99 Carbon Dioxide 27 Anion Gap 9 BUN 9 Creatinine 0.70 Est GFR ( Amer) > 60 Glucose 96 Calcium 8.0 L Impressions: Guidance Fluoroscopy 02/11/20 00:00 IMPRESSION: IMAGE(S) OBTAINED DURING PROCEDURE. Chest X-Ray 02/11/20 16:31 IMPRESSION: Cannot exclude airspace disease in the left lower lobe, pneumonia versus atelectasis. Right internal jugular catheter and endotracheal tube as described. Injection port remains in place. Assessment & Plan - Time Anticipated Discharge Disposition: Home, Self Care Anticipated Discharge Timeframe: unk - Plan Summary Plan Summary: will advance diet dulcolax supp
[2020-02-16] MEDS: INSULIN LISPRO 100 UNIT/ML 3 ML VIAL SUBCUT SCH (08:09)
[2020-02-16] MEDS ORDERED: BISACODYL 10 MG SUPP.RECT PR ONE (08:30)
--- NOTE | 2020-02-16 09:04 | PDOC PROGRESS REPORT ---
Subjective Progress Note for:: 02/16/20 Subjective:: Patient states "my bowels just won't move" She is tired of eating clear liquids, but her body just doesn't want to eat. She denies any abdominal pain. No dyspnea. Otherwise, no complaints. Reason For Visit: METASTATIC COLON CANCER Physical Exam Vital Signs: Temp Pulse Resp BP Pulse Ox 97.5 F 69 20 104/63 97 02/16/20 07:37 02/16/20 07:37 02/16/20 07:37 02/16/20 07:37 02/16/20 07:37 Intake & Output 02/15/20 02/16/20 02/17/20 06:59 06:59 06:59 Intake Total 1430 Output Total 1150 Balance 280 Weight 58.2 kg General appearance: PRESENT: no acute distress, well-developed, well-nourished Exam: She is sitting up on the side of her bed, trying to eat breakfast. She is very talkative and pleasant. Head exam: PRESENT: normocephalic Eye exam: PRESENT: EOMI Respiratory exam: PRESENT: clear to auscultation moni, unlabored Cardiovascular exam: PRESENT: RRR Neurological exam: PRESENT: alert, awake, oriented to person, oriented to place, oriented to time, oriented to situation Psychiatric exam: PRESENT: appropriate affect Skin exam: PRESENT: normal color Results Laboratory Results: 02/16/20 04:55 02/16/20 04:55 02/16/20 02/16/20 04:55 04:55 WBC 9.2 RBC 3.85 Hgb 11.9 L Hct 34.9 L MCV 91 MCH 30.9 MCHC 34.1 RDW 15.6 H Plt Count 180 Seg Neutrophils % 75.9 Sodium 134.9 L Potassium 3.2 L Chloride 99 Carbon Dioxide 27 Anion Gap 9 BUN 9 Creatinine 0.70 Est GFR ( Amer) > 60 Glucose 96 Calcium 8.0 L Impressions: Guidance Fluoroscopy 02/11/20 00:00 IMPRESSION: IMAGE(S) OBTAINED DURING PROCEDURE. Chest X-Ray 02/11/20 16:31 IMPRESSION: Cannot exclude airspace disease in the left lower lobe, pneumonia versus atelectasis. Right internal jugular catheter and endotracheal tube as described. Injection port remains in place. Assessment & Plan - Diagnosis (1) Colon cancer metastasized to liver Is this a current diagnosis for this admission?: Yes Plan: Continue current treatments. Patient was discussed with Dr. Gonzalez. (2) Gastroesophageal reflux disease Qualifiers: Esophagitis presence: esophagitis presence not specified Qualified Code(s): K21.9 - Gastro-esophageal reflux disease without esophagitis Is this a current diagnosis for this admission?: Yes Plan: Continue current meds. - Time Time Spent with patient: Less than 15 minutes
[2020-02-16] MEDS: METOPROLOL TARTRATE 25 MG TABLET PO SCH ×2 (09:10→22:53)
[2020-02-16] MEDS: FAMOTIDINE INJ/PF 20 MG/2 ML SDV IV SCH ×2 (09:20→22:52)
[2020-02-16] MEDS: DULOXETINE HCL 30 MG CAPSULE.DR PO SCH (09:20)
[2020-02-16] MEDS: FUROSEMIDE INJ/PF 20 MG/2 ML SDV IV SCH (09:20)
--- NOTE | 2020-02-16 09:39 | PDOC CONSULTATION ---
Consultation Consult Date: 02/16/20 Attending physician:: JUAN CRAFT Provider Consulted: JOJO TOTH Consult reason:: Atrial fibrillation, prosthetic mechanical aortic valve History of Present Illness Admission Date/PCP: 02/11/20 09:37 JUAN CRAFT MD Patient complains of: Constipation History of Present Illness: ZENY PRITCHARD is a 80 year old female Known to me from the office with the following active problems 1. Mechanical prosthetic aortic valve 2. Chronic systemic anticoagulation-warfarin 3. Paroxysmal atrial fibrillation 4. Diastolic congestive heart failure (lVEF 50-55%04/28/2018) 5. Chronic blood loss anemia 6. 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 She underwent partial colectomy, partial lobectomy-right lobe liver and is postsurgical. Patient was in the intensive care unit. Required norepinephrine. She was extubated. She has been followed by the surgical and oncology services. She has been maintained on enoxaparin injections-full therapeutic dose because of presence of mechanical prosthetic aortic valve. Patient complains of constipation feels that her abdomen is feeling better and does not endorse any pain at the moment. No familial illnesses Review of systems positive abdominal discomfort and constipation no pain reported. Full 11 review of systems was asked. Pertinent positives noted here in the HPI all other systems are negative. Patient is retired. Lives at home. Not a smoker. Past Medical History Cardiac Medical History: Reports: Atrial Fibrillation - HX BUT NOT CURRENTLY , Congestive Heart Failure, Coronary Artery Disease Denies: Myocardial Infarction, Hyperlipidema, Hypertension, Peripheral Vascular Disease, Heart Murmur Pulmonary Medical History: Neurological Medical History: Renal/ Medical History: Malignancy Medical History: Denies: Breast Cancer, Cervical Cancer, Leukemia, Ovarian Cancer GI Medical History: Reports: Gastroesophageal Reflux Disease Denies: Cirrhosis, Crohn's Disease, Hiatal Hernia - ? Musculoskeltal Medical History: Reports: Arthritis Denies: Fibromyalgia Psychiatric Medical History: Denies: Depression Hematology: Reports: Anemia - HX BLOOD TRANSFUSION AND IRON TRANSFUSIONS Denies: Hemophilia, Sickle Cell Disease, Bleeding Tendencies Infectious Medical History: Denies: HIV Past Surgical History Past Surgical History: Reports: Appendectomy - ?, Hysterectomy, Orthopedic Surgery - R shoulder replacement, Valve Replacement - Mechanical aortic valve Denies: Amputation, Section, Cholecystectomy, Colostomy, Coronary Artery Bypass Graft, Gastric Bypass Surgery, Herniorrhaphy, Mastectomy, Pacemaker, Tonsillectomy, Tubal Ligation Social History Smoking Status: Unknown if Ever Smoked Frequency of Alcohol Use: Rare Hx Recreational Drug Use: No Drugs: None Hx Prescription Drug Abuse: No - Advance Directive Resuscitation Status: Full Code Family History Family History: Reviewed & Not Pertinent, Hypertension Parental Family History Reviewed: Yes - No familial illnesses Children Family History Reviewed: NA Sibling(s) Family History Reviewed.: NA Medication/Allergy Home Medications: Duloxetine HCl [Cymbalta] 30 mg PO DAILY 03/16/17 Cholecalciferol (Vitamin D3) [Vitamin D3 5000 unit Capsule] 5,000 unit PO DAILY 02/09/18 Furosemide [Lasix 20 mg Tablet] 40 mg PO DAILY 02/09/18 Pantoprazole Sodium [Protonix] 40 mg PO DAILY 02/09/18 Enoxaparin Sodium [Lovenox Inj 60 Mg/0.6 Ml Disp.Syrin] 60 mg SUBCUT Q12 02/12/20 Fluocinonide 1 applic TP ASDIR PRN 02/12/20 Ketoconazole [Nizoral 2% Shampoo 120 ml Bottle] 1 applic TOP ASDIR PRN 02/12/20 Allergies/Adverse Reactions: Nlwjfpc-Oli-Myl Reductase Inhibitor Adverse Reaction (Verified 02/11/20 10:18) Review of Systems Constitutional: PRESENT: as per HPI Nose, Mouth, and Throat: PRESENT: as per HPI Cardiovascular: ABSENT: as per HPI, chest pain, dyspnea on exertion, edema, orthropnea, palpitations, other Respiratory: ABSENT: as per HPI, cough, dyspnea, hemoptysis, sputum, other Gastrointestinal: PRESENT: constipation, other - Mild discomfort Musculoskeletal: ABSENT: as per HPI, back pain, deformity, joint swelling, muscle weakness, other Neurological: ABSENT: as per HPI, abnormal gait, abnormal movements, abnormal speech, confusion, convulsions, dizziness, focal weakness, frequent falls, lack of coordination, memory loss, numbness, paresthesias, restless legs, syncope, t ingling, tremor(s), vertigo, weakness, other Physical Exam Vital Signs: Temp Pulse Resp BP Pulse Ox 97.5 F 69 20 104/63 97 02/16/20 07:37 02/16/20 07:37 02/16/20 07:37 02/16/20 07:37 02/16/20 07:37 Intake & Output 02/15/20 02/16/20 02/17/20 06:59 06:59 06:59 Intake Total 1430 Output Total 1150 Balance 280 Weight 58.2 kg General appearance: PRESENT: no acute distress, cooperative, obese Head exam: PRESENT: atraumatic, normocephalic Eye exam: PRESENT: conjunctiva pale, EOMI Mouth exam: PRESENT: dry mucosa Respiratory exam: PRESENT: decreased breath sounds, symmetrical, unlabored Cardiovascular exam: PRESENT: irregular rhythm, +S1, +S2 - Prosthetic valve click., other - Healed sternotomy Pulses: PRESENT: normal radial pulses - Sternotomy healed GI/Abdominal exam: PRESENT: soft Neurological exam: PRESENT: alert, awake, oriented to person, oriented to place, oriented to time, CN II-XII grossly intact Psychiatric exam: PRESENT: appropriate affect Skin exam: PRESENT: dry, intact, pallor Results Laboratory Results: 02/16/20 04:55 02/16/20 04:55 02/16/20 02/16/20 04:55 04:55 WBC 9.2 RBC 3.85 Hgb 11.9 L Hct 34.9 L MCV 91 MCH 30.9 MCHC 34.1 RDW 15.6 H Plt Count 180 Seg Neutrophils % 75.9 Sodium 134.9 L Potassium 3.2 L Chloride 99 Carbon Dioxide 27 Anion Gap 9 BUN 9 Creatinine 0.70 Est GFR ( Amer) > 60 Glucose 96 Calcium 8.0 L EKG Comments: Twelve-lead EKG 02/13/2020 Sinus rhythm, 85 bpm, normal AV conduction, QTC is 471 ms. White blood cell count 9.2 Hemoglobin 11.9 Hematocrit 34.9 INR 0.97 Transthoracic echocardiogram 04/18/2018 Left ventricular ejection fraction 50 to 55%. Normally functioning prosthetic aortic valve. Trace mitral regurgitation and mild tricuspid regurgitation Impressions: Guidance Fluoroscopy 02/11/20 00:00 IMPRESSION: IMAGE(S) OBTAINED DURING PROCEDURE. Chest X-Ray 02/11/20 16:31 IMPRESSION: Cannot exclude airspace disease in the left lower lobe, pneumonia versus atelectasis. Right internal jugular catheter and endotracheal tube as described. Injection port remains in place. Assessment & Plan - Diagnosis (1) S/P AVR Is this a current diagnosis for this admission?: Yes Plan: Patient has been maintained chronically on systemic anticoagulation with warfarin Warfarin is further indicated for paroxysmal atrial fibrillation with increased risk of stroke Patient is presently being maintained on enoxaparin bridge to warfarin. Further surgical procedures are not anticipated warfarin should be resumed as soon as feasible. Unfractionated heparin preferable (2) Colon cancer metastasized to liver Is this a current diagnosis for this admission?: Yes Plan: Postsurgical status post hemicolectomy and partial lobectomy of the liver. Patient is constipated. Does want to eat. Surgery is following. (3) Congestive heart failure Qualifiers: Heart failure type: combined systolic and diastolic Heart failure chronicity: chronic Qualified Code(s): I50.42 - Chronic combined systolic (congestive) and diastolic (congestive) heart failure Is this a current diagnosis for this admission?: Yes (4) Warfarin anticoagulation Is this a current diagnosis for this admission?: Yes Plan: Resume warfarin anticoagulation as soon as feasible. Indicated for prosthetic aortic valve as well as atrial fibrillation (5) Atrial fibrillation Qualifiers: Atrial fibrillation type: unspecified Qualified Code(s): I48.91 - Unspecified atrial fibrillation Is this a current diagnosis for this admission?: Yes Plan: Rate control measures for this patient. Did not tolerate amiodarone well. Plan is to continue warfarin anticoagulation and rate control measures such as beta-blockers or calcium blockers.
--- NOTE | 2020-02-16 13:13 | PDOC PROGRESS REPORT ---
Subjective Progress Note for:: 02/16/20 Subjective:: Patient is currently doing well Patient's have A. fib a week in spite of the metoprolol discussed with the cardiology Dr. Acosta suggest that cut down the metoprolol dose due to the low blood pressures and discontinues the Lasix Patient's other than that feeling much better Patient is still not have any bowel movement Reason For Visit: METASTATIC COLON CANCER Physical Exam Vital Signs: Temp Pulse Resp BP Pulse Ox 98.2 F 71 18 109/63 94 02/16/20 11:11 02/16/20 11:11 02/16/20 11:11 02/16/20 11:11 02/16/20 11:11 Intake & Output 02/15/20 02/16/20 02/17/20 06:59 06:59 06:59 Intake Total 1430 Output Total 1150 Balance 280 Weight 58.2 kg General appearance: PRESENT: no acute distress Eye exam: PRESENT: PERRLA Mouth exam: PRESENT: neck supple Respiratory exam: PRESENT: clear to auscultation moni Cardiovascular exam: PRESENT: +S1, +S2 Additonal comments: Surgical dressing is intact Musculoskeletal exam: PRESENT: ambulatory Neurological exam: PRESENT: alert, awake, oriented to person, oriented to place, oriented to time Skin exam: PRESENT: dry Results Laboratory Results: 02/16/20 04:55 02/16/20 04:55 02/16/20 02/16/20 04:55 04:55 WBC 9.2 RBC 3.85 Hgb 11.9 L Hct 34.9 L MCV 91 MCH 30.9 MCHC 34.1 RDW 15.6 H Plt Count 180 Seg Neutrophils % 75.9 Sodium 134.9 L Potassium 3.2 L Chloride 99 Carbon Dioxide 27 Anion Gap 9 BUN 9 Creatinine 0.70 Est GFR ( Amer) > 60 Glucose 96 Calcium 8.0 L Impressions: Guidance Fluoroscopy 02/11/20 00:00 IMPRESSION: IMAGE(S) OBTAINED DURING PROCEDURE. Chest X-Ray 02/11/20 16:31 IMPRESSION: Cannot exclude airspace disease in the left lower lobe, pneumonia versus atelectasis. Right internal jugular catheter and endotracheal tube as described. Injection port remains in place. Assessment & Plan - Diagnosis (1) Atrial fibrillation Qualifiers: Atrial fibrillation type: unspecified Qualified Code(s): I48.91 - Unspecified atrial fibrillation Is this a current diagnosis for this admission?: Yes Plan: Continues to Lovenox per hematology continues the low-dose metoprolol as per discussed with the Dr. Acosta (2) Colon cancer metastasized to liver Is this a current diagnosis for this admission?: Yes Plan: Currently follow with the surgery (3) Hypotension after procedure Is this a current diagnosis for this admission?: Yes (4) Anemia Qualifiers: Anemia type: iron deficiency Iron deficiency anemia type: chronic blood loss Qualified Code(s): D50.0 - Iron deficiency anemia secondary to blood loss (chronic) Is this a current diagnosis for this admission?: Yes (5) Congestive heart failure Qualifiers: Heart failure type: combined systolic and diastolic Heart failure chronicity: chronic Qualified Code(s): I50.42 - Chronic combined systolic (congestive) and diastolic (congestive) heart failure Is this a current diagnosis for this admission?: Yes (6) Valvular heart disease Is this a current diagnosis for this admission?: Yes - Time Time Spent with patient: 15-24 minutes Level of Care: IMCU Medications reviewed and adjusted accordingly: Yes Anticipated discharge: Other Anticipated DC Timeframe: Other - Plan Summary Plan Summary: Continues to current medications
[2020-02-16] MEDS ORDERED: POTASSIUM CHLORIDE 20 MEQ/50 ML RTU IV ONE (16:15)
[2020-02-17] MEDS: METRONIDAZOLE 500 MG/NS RTU 500 MG/100 ML RTUPB IV SCH (02:00)
[2020-02-17] MEDS: CEFAZOLIN 1 GM/D5W RTU 1 GM/50 ML RTUPB IV SCH (06:26)
[2020-02-17] MEDS: ENOXAPARIN SODIUM INJ 60 MG/0.6 ML DISP.SYRIN SUBCUT SCH ×2 (06:27→17:18)
--- NOTE | 2020-02-17 07:55 | PDOC PROGRESS REPORT ---
Subjective Progress Note for:: 02/17/20 Subjective:: Patient still having bouts of confusion, did not have a bowel movement, passed minimal gas over the last 24 hours Reason For Visit: METASTATIC COLON CANCER Physical Exam Vital Signs: Temp Pulse Resp BP Pulse Ox 98.4 F 71 20 120/75 93 02/17/20 00:00 02/17/20 02:00 02/17/20 00:00 02/17/20 00:00 02/17/20 00:00 Intake & Output 02/16/20 02/17/20 02/18/20 06:59 06:59 06:59 Intake Total 1430 1050 Output Total 1150 300 Balance 280 750 Weight 58.2 kg 58.1 kg General appearance: PRESENT: no acute distress, well-developed, well-nourished Head exam: PRESENT: atraumatic, normocephalic Eye exam: PRESENT: conjunctiva pink, EOMI, PERRLA. ABSENT: scleral icterus Ear exam: PRESENT: normal external ear exam Mouth exam: PRESENT: moist, tongue midline Neck exam: ABSENT: carotid bruit, JVD, lymphadenopathy, thyromegaly Respiratory exam: PRESENT: clear to auscultation moni. ABSENT: rales, rhonchi, wheezes Cardiovascular exam: PRESENT: RRR. ABSENT: diastolic murmur, rubs, systolic murmur Pulses: PRESENT: normal dorsalis pedis pul Vascular exam: PRESENT: normal capillary refill GI/Abdominal exam: PRESENT: normal bowel sounds, soft. ABSENT: distended, guar ding, mass, organolmegaly, rebound, tenderness Rectal exam: PRESENT: deferred Extremities exam: PRESENT: full ROM. ABSENT: calf tenderness, clubbing, pedal edema Neurological exam: PRESENT: alert, awake, oriented to person, oriented to place, oriented to time, oriented to situation, CN II-XII grossly intact. ABSENT: motor sensory deficit Psychiatric exam: PRESENT: appropriate affect, normal mood. ABSENT: homicidal ideation, suicidal ideation Skin exam: PRESENT: dry, intact, warm. ABSENT: cyanosis, rash Results Laboratory Results: 02/16/20 04:55 02/16/20 04:55 Impressions: Guidance Fluoroscopy 02/11/20 00:00 IMPRESSION: IMAGE(S) OBTAINED DURING PROCEDURE. Chest X-Ray 02/11/20 16:31 IMPRESSION: Cannot exclude airspace disease in the left lower lobe, pneumonia versus atelectasis. Right internal jugular catheter and endotracheal tube as described. Injection port remains in place. Assessment & Plan - Diagnosis (1) Valvular heart disease Is this a current diagnosis for this admission?: Yes Plan: Restart warfarin today, continue Lovenox (2) Colon cancer metastasized to liver Is this a current diagnosis for this admission?: Yes Plan: Status post resection, we will access port today (3) Anemia Qualifiers: Anemia type: iron deficiency Iron deficiency anemia type: chronic blood loss Qualified Code(s): D50.0 - Iron deficiency anemia secondary to blood loss (chronic) Is this a current diagnosis for this admission?: Yes Plan: Hemoglobin stable, continue to monitor - Time Time Spent with patient: 35 or more minutes
[2020-02-17] MEDS ORDERED: LACTULOSE SYRUP 20 GM/30 ML UDCUP PO ONE (09:00)
[2020-02-17 09:24] LABS: HEMATOCRIT 36.7 % (36.0-47.0); HEMOGLOBIN 12.2 g/dL (12.0-15.5); MEAN CORPUSCULAR HEMOGLOBIN 30.5 pg (27.0-33.4); MEAN CORPUSCULAR HGB CONC 33.1 g/dL (32.0-36.0); MEAN CORPUSCULAR VOLUME 92 fl (80-97); RED BLOOD COUNT 3.99 10^6/uL (3.72-5.28); RED CELL DISTRIBUTION WIDTH 15.6 % (11.5-14.0); WHITE BLOOD COUNT 11.4 10^3/uL (4.0-10.5)
[2020-02-17 09:37] LABS: PLATELET COUNT 154 10^3/uL (150-450)
[2020-02-17] MEDS: METOPROLOL TARTRATE 25 MG TABLET PO SCH ×2 (09:37→21:52)
[2020-02-17] MEDS: DULOXETINE HCL 30 MG CAPSULE.DR PO SCH (09:37)
--- NOTE | 2020-02-17 09:37 | PDOC PROGRESS REPORT ---
Subjective Progress Note for:: 02/17/20 Subjective:: Patient currently doing fair Denied any abdominal pain no nausea no vomiting Still not passing gas still not have any bowel movement Patient otherwise repeat confused overnight currently alert awake oriented x3 Reason For Visit: METASTATIC COLON CANCER Physical Exam Vital Signs: Temp Pulse Resp BP Pulse Ox 98.4 F 80 16 125/73 97 02/17/20 07:45 02/17/20 07:45 02/17/20 07:45 02/17/20 07:45 02/17/20 07:45 Intake & Output 02/16/20 02/17/20 02/18/20 06:59 06:59 06:59 Intake Total 1430 1050 Output Total 1150 300 Balance 280 750 Weight 58.2 kg 58.1 kg General appearance: PRESENT: no acute distress, well-developed, well-nourished Head exam: PRESENT: atraumatic, normocephalic Eye exam: PRESENT: conjunctiva pink, EOMI, PERRLA. ABSENT: scleral icterus Ear exam: PRESENT: normal external ear exam Mouth exam: PRESENT: moist, tongue midline Neck exam: PRESENT: full ROM. ABSENT: carotid bruit, JVD, lymphadenopathy, thyromegaly Respiratory exam: PRESENT: clear to auscultation moni Cardiovascular exam: PRESENT: RRR. ABSENT: diastolic murmur, rubs, systolic murmur Vascular exam: PRESENT: normal capillary refill GI/Abdominal exam: PRESENT: soft. ABSENT: distended, guarding, mass, organolmegaly, rebound, tenderness Rectal exam: PRESENT: deferred Neurological exam: PRESENT: alert, awake, oriented to person, oriented to place, oriented to time, oriented to situation, CN II-XII grossly intact. ABSENT: motor sensory deficit Psychiatric exam: PRESENT: appropriate affect, normal mood. ABSENT: homicidal ideation, suicidal ideation Skin exam: PRESENT: dry, intact, warm. ABSENT: cyanosis, rash Results Laboratory Results: 02/16/20 04:55 Impressions: Guidance Fluoroscopy 02/11/20 00:00 IMPRESSION: IMAGE(S) OBTAINED DURING PROCEDURE. Chest X-Ray 02/11/20 16:31 IMPRESSION: Cannot exclude airspace disease in the left lower lobe, pneumonia versus atelectasis. Right internal jugular catheter and endotracheal tube as described. Injection port remains in place. Assessment & Plan - Diagnosis (1) Atrial fibrillation Qualifiers: Atrial fibrillation type: unspecified Qualified Code(s): I48.91 - U nspecified atrial fibrillation Is this a current diagnosis for this admission?: Yes Plan: Continues to Lovenox per hematology continues the low-dose metoprolol as per discussed with the Dr. Acosta (2) Colon cancer metastasized to liver Is this a current diagnosis for this admission?: Yes Plan: Status post resection, we will access port today (3) Hypotension after procedure Is this a current diagnosis for this admission?: Yes (4) Anemia Qualifiers: Anemia type: iron deficiency Iron deficiency anemia type: chronic blood loss Qualified Code(s): D50.0 - Iron deficiency anemia secondary to blood loss (chronic) Is this a current diagnosis for this admission?: Yes (5) Congestive heart failure Qualifiers: Heart failure type: combined systolic and diastolic Heart failure chronicity: chronic Qualified Code(s): I50.42 - Chronic combined systolic (congestive) and diastolic (congestive) heart failure Is this a current diagnosis for this admission?: Yes (6) Valvular heart disease Is this a current diagnosis for this admission?: Yes - Time Time Spent with patient: 15-24 minutes Level of Care: TELE Medications reviewed and adjusted accordingly: Yes Anticipated discharge: Home with Homehealth Anticipated DC Timeframe: within 24 hours - Plan Summary Plan Summary: Continues to current medications
[2020-02-17] MEDS: OXYCODONE HCL IR 5 MG TABLET PO PRN (09:39)
[2020-02-17] MEDS: FAMOTIDINE INJ/PF 20 MG/2 ML SDV IV SCH ×2 (09:40→21:51)
--- NOTE | 2020-02-17 10:16 | PDOC PROGRESS REPORT ---
Subjective Progress Note for:: 02/17/20 Subjective:: Dr. Acosta's note as follows from : ZENY PRITCHARD is a 80 year old female Known to me from the office with the following active problems 1. Mechanical prosthetic aortic valve 2. Chronic systemic anticoagulation-warfarin 3. Paroxysmal atrial fibrillation 4. Diastolic congestive heart failure (lVEF 50-55%04/28/2018) 5. Chronic blood loss anemia 6. 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 She underwent partial colectomy, partial lobectomy-right lobe liver and is postsurgical. Patient was in the intensive care unit. Required norepinephrine. She was extu bated. She has been followed by the surgical and oncology services. She has been maintained on enoxaparin injections-full therapeutic dose because of presence of mechanical prosthetic aortic valve. Patient complains of constipation feels that her abdomen is feeling better and does not endorse any pain at the moment. MAR 05: 80y/o female, patient of my partner Dr. Acosta with the above history who is seen on follow up visit primarily for her atrial fibrillation. The patient was begun on low dose beta geovanni and has done well. She had an uneventful night and denies cardiac complaints. Her telemetry shows NSR with occasional and brief bursts of atrial fibrillation. Physical Exam on MAR 05: GENERAL: Pleasant and conversational. Oriented x3 with normal mood. Not in acute distress. Well groomed and well developed. HEENT: Normocephalic, atraumatic. Pupils equal. Sclerae anicteric. Oropharynx moist. NECK: No JVD. No carotid bruits. LUNGS: Clear to auscultation bilaterally. Normal respiratory effort without the use of accessory muscles or intercostal retractions. CARDIOVASCULAR: Regular rate and rhythm, normal S1 and S2 without murmurs, rubs, or gallops. PMI not displaced. EXTREMITIES: No pitting edema bilaterally, no cyanosis, no clubbing. +2 pulses femoral and pedal pulses bilaterally. SKIN: No lesions or rashes. MUSCULOSKELETAL: No chest tenderness to palpation. NEUROLOGIC: Nonfocal. No gross sensory or motor deficits bilateral upper or lower extremities. Reason For Visit: METASTATIC COLON CANCER Physical Exam Vital Signs: Temp Pulse Resp BP Pulse Ox 98.4 F 80 16 125/73 97 02/17/20 07:45 02/17/20 07:45 02/17/20 07:45 02/17/20 07:45 02/17/20 07:45 Intake & Output 02/16/20 02/17/20 02/18/20 06:59 06:59 06:59 Intake Total 1430 1050 Output Total 1150 300 Balance 280 750 Weight 58.2 kg 58.1 kg Results Laboratory Results: 02/17/20 09:00 02/16/20 04:55 02/17/20 09:00 WBC 11.4 H RBC 3.99 Hgb 12.2 Hct 36.7 MCV 92 MCH 30.5 MCHC 33.1 RDW 15.6 H Plt Count 154 Impressions: Guidance Fluoroscopy 02/11/20 00:00 IMPRESSION: IMAGE(S) OBTAINED DURING PROCEDURE. Chest X-Ray 02/11/20 16:31 IMPRESSION: Cannot exclude airspace disease in the left lower lobe, pneumonia versus atelectasis. Right internal jugular catheter and endotracheal tube as described. Injection port remains in place. 02/17/20 09:00 02/16/20 04:55 MCV 92 fl (80-97) 02/17/20 09:00 MCH 30.5 pg (27.0-33.4) 02/17/20 09:00 MCHC 33.1 g/dL (32.0-36.0) 02/17/20 09:00 RDW 15.6 % (11.5-14.0) H 02/17/20 09:00 Seg Neutrophils % 75.9 % (42-78) 02/16/20 04:55 Chloride 99 mmol/L (98-107) 02/16/20 04:55 Carbon Dioxide 27 mmol/L (22-30) 02/16/20 04:55 Anion Gap 9 (5-19) 02/16/20 04:55 Est GFR ( Amer) > 60 (>60) 02/16/20 04:55 Est GFR (Non-Af Amer) Cancelled 02/12/20 05:30 Glucose 96 mg/dL (75-110) 02/16/20 04:55 Calcium 8.0 mg/dL (8.4-10.2) L 02/16/20 04:55 Magnesium 2.1 mg/dL (1.6-2.3) 02/14/20 05:35 Total Bilirubin 0.8 mg/dL (0.2-1.3) 02/14/20 05:35 AST 168 U/L (14-36) H 02/14/20 05:35 Alkaline Phosphatase 70 U/L (38-126) 02/14/20 05:35 Total Protein 4.7 g/dL (6.3-8.2) L 02/14/20 05:35 Albumin 2.6 g/dL (3.5-5.0) L 02/14/20 05:35 Blood Type O POSITIVE 02/11/20 10:20 Antibody Screen NEGATIVE 02/11/20 10:20 Current Medication List Generic Name Dose Route Start Last Admin Trade Name Freq PRN Reason Stop Dose Admin Duloxetine HCl 30 mg 02/14/20 10:00 02/17/20 09:37 Cymbalta 30 Mg Capsule.Dr PO 03/15/20 09:59 30 mg DAILY YOBANI Administration Enoxaparin Sodium 60 mg 02/13/20 18:00 02/17/20 06:27 Lovenox Inj 60 Mg/0.6 Ml Disp.Syrin SUBCUT 03/14/20 17:59 Not Given Q12A YOBANI Famotidine 20 mg 02/11/20 22:00 02/17/20 09:40 Pepcid Inj/Pf 20 Mg/2 Ml Sdv IV 03/12/20 21:59 20 mg Q12 YOBANI Administration Fentanyl Citrate 50 mcg 02/12/20 02:48 02/12/20 21:54 Sublimaze Inj/Pf 100 Mcg/2 Ml Ampule IV 02/19/20 02:47 50 mcg Q4HP PRN Administration SEVERE PAIN Heparin Sodium (Porcine) 30 unit 02/13/20 22:00 02/17/20 06:27 Heparin Flush 10 Unit/Ml 5 Ml Disp.Syrg IV 03/14/20 21:59 30 unit Q8 YOBANI Administration Heparin Sodium (Porcine) 30 unit 02/13/20 16:30 02/16/20 05:04 Heparin Flush 10 Unit/Ml 5 Ml Disp.Syrg IV 03/14/20 16:29 30 unit .AFTER EACH USE PRN Administration AFTER EACH INTERMITTENT USE Metoprolol Tartrate 12.5 mg 02/16/20 22:00 02/17/20 09:37 Lopressor 25 Mg Tablet PO 03/17/20 21:59 12.5 mg Q12 YOBANI Administration Oxycodone HCl 5 mg 02/13/20 00:22 02/17/20 09:39 Oxy-Ir 5 Mg Tablet PO 02/20/20 00:21 5 mg Q6HP PRN Administration SEVERE PAIN Warfarin Sodium 5 mg 02/17/20 22:00 Jantoven 5 Mg Tablet PO 03/18/20 21:59 QHS YOBANI Discontinued Medications Generic Name Dose Route Start Last Admin Trade Name Frejustin PRN Reason Stop Dose Admin Amiodarone HCl Confirm 02/12/20 04:48 02/12/20 05:08 Cordarone Inj 150 Mg/3 Ml Vial Administered 02/12/20 04:49 Not Given Dose 150 mg IV .STK-MED ONE Bisacodyl 10 mg 02/15/20 08:31 02/15/20 11:32 Dulcolax 10 Mg Supp.Rect [place] 02/15/20 08:32 Not Given NOW ONE Bisacodyl 10 mg 02/15/20 12:00 02/15/20 11:31 Dulcolax 10 Mg Supp.Rect [place] 02/15/20 12:01 10 mg NOW ONE Administration Bisacodyl 10 mg 02/16/20 08:30 02/16/20 08:15 Dulcolax 10 Mg Supp.Rect [place] 02/16/20 08:31 10 mg NOW ONE Administration Bupivacaine Liposome Confirm 02/11/20 09:48 Exparel 1.3% Inj/Pf 266 Mg/20 Ml Sdv Administered 02/11/20 09:49 Dose 266 mg .ROUTE .STK-MED ONE Calcium Gluconate 4,000 mg 02/11/20 15:54 Calcium Gluconate Inj 1000 Mg/10 Ml IV 02/11/20 15:55 NOW ONE Dexamethasone Sodium Phosphate Confirm 02/11/20 07:59 Decadron Inj 4 Mg/Ml Vial Administered 02/11/20 08:00 Dose 4 mg .ROUTE .STK-MED ONE Dextrose 12.5 gm 02/12/20 00:06 Dextrose Inj 50% Syringe (25 Gm/50 Ml) IV 03/13/20 00:05 PRN PRN FOR BG 50-69 IN ALERT PATIENT Protocol Dextrose 25 gm 02/12/20 00:06 Dextrose Inj 50% Syringe (25 Gm/50 Ml) IV 03/13/20 00:05 PRN PRN PER PROTOCOL Protocol Dextrose 12.5 gm 02/12/20 04:28 Dextrose Inj 50% Syringe (25 Gm/50 Ml) IV 03/13/20 04:27 PRN PRN FOR BG 50-69 IN ALERT PATIENT Protocol Dextrose 25 gm 02/12/20 04:28 Dextrose Inj 50% Syringe (25 Gm/50 Ml) IV 03/13/20 04:27 PRN PRN See Label Comments Protocol Diphenhydramine HCl 12.5 mg 02/11/20 13:04 Benadryl Inj 50 Mg/1 Ml Vial IV 02/11/20 16:04 .WHILE IN PACU PRN ITCHING Ephedrine Sulfate Confirm 02/11/20 12:02 Ephedrine Sulfate Inj 50 Mg/Ml Ampule Administered 02/11/20 12:03 Dose 50 mg .ROUTE .STK-MED ONE Fentanyl Citrate Confirm 02/11/20 07:59 Sublimaze Inj/Pf 100 Mcg/2 Ml Ampule Administered 02/11/20 08:00 Dose 100 mcg .ROUTE .STK-MED ONE Fentanyl Citrate 25 mcg 02/11/20 13:04 Sublimaze Inj/Pf 100 Mcg/2 Ml Ampule IV 02/11/20 16:04 .WHILE IN PACU PRN PAIN SCALE 2-3 Fentanyl Citrate 12.5 mcg 02/11/20 13:04 Sublimaze Inj/Pf 100 Mcg/2 Ml Ampule IV 02/11/20 16:04 .WHILE IN PACU PRN PAIN SCALE OF 1 Fentanyl Citrate 50 mcg 02/11/20 13:04 Sublimaze Inj/Pf 100 Mcg/2 Ml Ampule IV 02/11/20 16:04 .WHILE IN PACU PRN PAIN SCALE 4-5 Fentanyl Citrate Confirm 02/11/20 14:39 Sublimaze Inj/Pf 100 Mcg/2 Ml Ampule Administered 02/11/20 14:40 Dose 100 mcg .ROUTE .STK-MED ONE Fentanyl Citrate Confirm 02/12/20 02:55 02/12/20 03:54 Sublimaze Inj/Pf 100 Mcg/2 Ml Ampule Administered 02/12/20 02:56 Not Given Dose 100 mcg .ROUTE .STK-MED ONE Furosemide 40 mg 02/11/20 20:45 02/11/20 21:10 Lasix Inj/Pf 40 Mg/4 Ml Sdv IV 02/11/20 20:46 40 mg NOW ONE Administration Furosemide 20 mg 02/13/20 18:00 02/16/20 09:20 Lasix Inj/Pf 20 Mg/2 Ml Sdv IV 03/14/20 17:59 20 mg BID YOBANI Administration Glucagon 1 mg 02/12/20 00:06 Glucagen Inj 1 Mg Vial IM 03/13/20 00:05 PRN PRN Evaluate for BG < 70 Protocol Glucagon 1 mg 02/12/20 04:28 Glucagen Inj 1 Mg Vial SUBCUT 03/13/20 04:27 PRN PRN Evaluate for BG < 70 Protocol Glucose 15 gm 02/12/20 00:06 Glutose 40% Gel 15 Gm Tube PO 03/13/20 00:05 PRN PRN FOR BG 50-69 IN ALERT PATIENT Protocol Glucose 30 gm 02/12/20 00:06 Glutose 40% Gel 15 Gm Tube PO 03/13/20 00:05 PRN PRN FOR BG < 50 IN ALERT PATIENT Protocol Glucose 15 gm 02/12/20 04:28 Glutose 40% Gel 15 Gm Tube PO 03/13/20 04:27 PRN PRN For BG 50-69 in Alert Patient Protocol Glucose 30 gm 02/12/20 04:28 Glutose 40% Gel 15 Gm Tube PO 03/13/20 04:27 PRN PRN FOR BG < 50 IN ALERT PATIENT Protocol Hard Fat/Phenylephrine 10 mg 02/11/20 11:36 Jorge Alberto-Synephrine Inj/Pf 10 Mg/1 Ml Sdv .ROUTE 02/11/20 11:37 .STK-MED ONE Hard Fat/Phenylephrine 10 mg 02/11/20 11:36 Jorge Alberto-Synephrine Inj/Pf 10 Mg/1 Ml Sdv .ROUTE 02/11/20 11:37 .STK-MED ONE Heparin Sodium (Porcine) Confirm 02/11/20 09:41 02/11/20 12:35 Heparin Inj 1,000 Unit/Ml 1 Ml Vial Administered 02/11/20 09:42 500 unit Dose Administration 1,000 unit .ROUTE .STK-MED ONE Cefazolin Sodium/Dextrose 2 gm in 50 mls @ 100 mls/hr 02/11/20 05:00 02/11/20 12:00 Ancef Rtu 2 Gm/D5w 50 Ml Premix Bag IV 02/11/20 23:59 50 mls PREOP PRN Administration THIS MED IS NOT "PRN" Metronidazole 500 mg in 100 mls @ 100 mls/hr 02/11/20 05:00 02/11/20 11:40 Flagyl Rtu 500 Mg/Ns 100ml Premix IV 02/11/20 23:59 100 mls PREOP PRN Administration THIS MED IS NOT "PRN" Cefazolin Sodium/Dextrose Confirm 02/11/20 05:17 02/11/20 16:53 Ancef Rtu 2 Gm/D5w 50 Ml Premix Bag Administered 02/11/20 05:18 Not Given Dose 2 gm in 50 mls @ ud IV .STK-MED ONE Metronidazole Confirm 02/11/20 05:18 02/11/20 16:53 Flagyl Rtu 500 Mg/Ns 100ml Premix Administered 02/11/20 05:19 Not Given Dose 500 mg in 100 mls @ ud IV .STK-MED ONE Cefazolin Sodium/Dextrose 1 gm in 50 mls @ 100 mls/hr 02/11/20 22:00 02/17/20 06:56 Ancef Rtu 1 Gm/D5w 50 Ml Premix Bag IV 02/18/20 21:59 Infused Q8 YOBANI Infusion Metronidazole 500 mg in 100 mls @ 100 mls/hr 02/11/20 18:00 02/17/20 03:00 Flagyl Rtu 500 Mg/Ns 100ml Premix IV 02/18/20 17:59 Infused Q8A YOBANI Infusion Dextrose/Lactated Ringer's 1,000 mls @ 100 mls/hr 02/11/20 15:44 02/11/20 20:30 D5lr 1000 Ml Iv Soln IV 03/12/20 15:43 Infused CONTINUOUS PRN Infusion THIS MED IS NOT "PRN" Calcium Gluconate 1 gm in 50 mls @ 50 mls/hr 02/11/20 17:00 02/11/20 21:43 Calcium Gluconate Rtu 1 Gm/50 Ml IV 02/11/20 20:59 50 mls/hr Q1H YOBANI Administration Vasopressin 100 unit/ Dextrose 250 mls @ 0 mls/hr 02/11/20 16:34 02/12/20 01: 55 IV 03/12/20 16:33 Infused CONTINUOUS PRN Titration THIS MED IS NOT "PRN" Protocol Titrate Norepinephrine Bitartrate 4 mg 250 mls @ 0 mls/hr 02/11/20 16:54 02/13/20 03: 15 / Dextrose IV 03/12/20 16:53 Infused CONTINUOUS PRN Titration THIS MED IS NOT "PRN" Protocol Titrate Dexmedetomidine/Sodium Chloride Confirm 02/11/20 16:56 02/11/20 19:03 Precedex 400 Mcg/Ns 100 Ml Iv Premix Administered 02/11/20 16:57 Not Given Dose 400 mcg in 100 mls @ ud IV .STK-MED ONE Dexmedetomidine/Sodium Chloride 400 mcg in 100 mls @ 8.15 mls/hr 02/11/20 19:16 02/12/20 05:37 Precedex 400 Mcg/Ns 100 Ml Iv Premix IV 03/12/20 19:15 Infused CONTINUOUS PRN Titration THIS MED IS NOT "PRN" Protocol 0.4 MCG/KG/HR Amiodarone HCl 150 mg/ 100 mls @ 600 mls/hr 02/12/20 04:37 02/12/20 05:07 Dextrose IV 02/12/20 04:46 600 mls/hr NOW ONE Administration Protocol Potassium Chloride/Water 20 meq in 50 mls @ 25 mls/hr 02/14/20 16:00 02/14/20 19:52 Potassium Chloride [place] 20 Meq/50 Ml IV 02/14/20 19:59 Infused Q2H YOBANI Infusion Potassium Chloride/Water 20 meq in 50 mls @ 25 mls/hr 02/16/20 16:15 02/16/20 19:48 Potassium Chloride [place] 20 Meq/50 Ml IV 02/16/20 18:14 Infused NOW ONE Infusion Insulin Human Lispro 0 - 12 unit 02/12/20 06:00 02/16/20 08:09 Humalog Insulin 100 Unit/1 Ml 3 Ml Vial SUBCUT 03/13/20 05:59 Not Given Q6 [facility] Protocol Insulin Human Regular 14 unit 02/12/20 00:07 02/12/20 00:46 Humulin R (Pyxis) Insulin 100 Unit/Ml 3ml SUBCUT 02/12/20 00:08 14 unit NOW ONE Administration Ketorolac Tromethamine Confirm 02/11/20 07:59 Toradol Inj/Pf 60 Mg/2 Ml Sdv Administered 02/11/20 08:00 Dose 60 mg .ROUTE .STK-MED ONE Lactulose 30 gm 02/17/20 09:00 02/17/20 09:39 Cephulac Syrup 20 Gm/30 Ml Udcup PO 02/17/20 09:01 30 gm NOW ONE Administration Lidocaine HCl Confirm 02/11/20 08:05 Xylocaine 2% Inj (20 Mg/Ml) 20ml Mdv Administered 02/11/20 08:06 Dose 20 ml .ROUTE .STK-MED ONE Lidocaine/Epinephrine Confirm 02/11/20 09:42 02/11/20 12:34 Xylocaine 1%/Epi 1:100,000 Inj 20 Ml Vial Administered 02/11/20 09:43 3 ml Dose Administration 20 ml .ROUTE .STK-MED ONE Meperidine HCl 12.5 mg 02/11/20 13:04 Demerol Inj 25 Mg/1 Ml Syringe IV 02/11/20 16:04 .WHILE IN PACU PRN Shivering Metoprolol Tartrate 25 mg 02/15/20 14:45 02/16/20 09:10 Lopressor 25 Mg Tablet PO 03/16/20 14:44 Not Given Q12 YOBANI Midazolam HCl Confirm 02/11/20 07:59 Versed 2 Mg/2 Ml Inj Administered 02/11/20 08:00 Dose 2 mg .ROUTE .STK-MED ONE Midazolam HCl Confirm 02/11/20 14:29 Versed 2 Mg/2 Ml Inj Administered 02/11/20 14:30 Dose 2 mg .ROUTE .STK-MED ONE Morphine Sulfate 3 mg 02/11/20 13:04 Morphine 10 Mg/Ml Inj IV 02/11/20 16:04 .WHILE IN PACU PRN FOR PAIN Morphine Sulfate 2 mg 02/11/20 15:44 Morphine 10 Mg/Ml Inj IV 02/18/20 15:43 Q4HP PRN FOR PAIN Norepinephrine Bitartrate Confirm 02/11/20 16:38 02/11/20 17:05 Levophed Inj/Pf 4 Mg/4 Ml Sdv Administered 02/11/20 16:39 Not Given Dose 4 mg IV .STK-MED ONE Ondansetron HCl Confirm 02/11/20 07:59 Zofran Inj/Pf 4 Mg/2 Ml Sdv Administered 02/11/20 08:00 Dose 4 mg .ROUTE .STK-MED ONE Ondansetron HCl 4 mg 02/11/20 13:04 Zofran Inj/Pf 4 Mg/2 Ml Sdv IV 02/11/20 16:04 .WHILE IN PACU PRN NAUSEA AND VOMITING Propofol Confirm 02/11/20 08:00 Diprivan Inj 200 Mg/20 Ml Vial Administered 02/11/20 08:01 Dose 200 mg IV .STK-MED ONE Rocuronium [place] 100 mg 02/11/20 11:36 Zemuron Inj 50 Mg/5 Ml Vial IV 02/11/20 11:37 .STK-MED ONE Vasopressin Confirm 02/11/20 14:07 Vasopressin Inj 20 Unit/1 Ml Vial Administered 02/11/20 14:08 Dose 20 unit .ROUTE .STK-MED ONE Vasopressin Confirm 02/11/20 16:02 02/11/20 16:57 Vasopressin Inj 20 Unit/1 Ml Vial Administered 02/11/20 16:03 Not Given Dose 20 unit .ROUTE .STK-MED ONE Vasopressin Confirm 02/11/20 16:03 02/11/20 16:57 Vasopressin Inj 20 Unit/1 Ml Vial Administered 02/11/20 16:04 Not Given Dose 20 unit .ROUTE .STK-MED ONE Assessment & Plan - Diagnosis (1) Atrial fibrillation Qualifiers: Atrial fibrillation type: paroxysmal Qualified Code(s): I48.0 - Paroxysmal atrial fibrillation Is this a current diagnosis for this admission?: Yes Plan: Doing well on low dose beta geovanni and asymptomatic. Hematology recommended to restart warfarin. Recommendations: -Continue with current management. -Start warfarin as recommended by Hematology and continue with lovenox until INR between 2.0 and 3.0. -No further cardiac recommendations, we will sign off the case. Please re- consult if clinically indicated. (2) S/P AVR Is this a current diagnosis for this admission?: Yes Plan: The patient remains stable. Agree with re-starting warfarin. Please continue with lovenox and warfarin until INR between 2 and 3 at which point lovenox can be discontinued. We wll sign off the case for now. (3) Colon cancer metastasized to liver Is this a current diagnosis for this admission?: Yes Plan: The patient is status post hemicolectomy and partial lobectomy of the liver. Further management per primary and oncology teams.
--- NOTE | 2020-02-17 12:35 | CRITICAL CARE ADMISSION REPORT ---
HPI Date:: 02/11/20 Reason for ICU Reason:: Post-op fluid shifts and hypotension. Admission Date/Time & PCP: Admission Date/Time: 02/11/20 09:37 Primary Care Provider: JUAN CRAFT MD HPI: This patient is an 80 yo woman recently diagnosed with a R colon tumor as well as a metestatic lesion in her R liver lobe. She underwent a colon resection and reanastomosis as well as a liver resection today. She has been extubated but because of her age, fluid shifting and need for pressors she is being admitted to the ICU post-op. Her BP normally runs low with a level 95/60 or so. She is maintaining a MAP of 60-65. History obtained from:: Dr. Funk, old records - Diagnosis/Plan (1) Colon cancer metastasized to liver Is this a current diagnosis for this admission?: Yes Plan: Resction of colon and liver mass performed. (2) Hypotension after procedure Is this a current diagnosis for this admission?: Yes Plan: Largely due to intraop bleeding and need for pressors. Plan Summary: Maintain MAP of 65 with fluid and pressors. Replace blood loss as needed. Past Medical History Cardiac Medical History: Reports: Atrial Fibrillation - HX BUT NOT CURRENTLY , Congestive Heart Failure, Coronary Artery Disease Denies: Myocardial Infarction, Hyperlipidema, Hypertension, Peripheral Vascular Disease, Heart Murmur Pulmonary Medical History: Neurological Medical History: Renal/ Medical History: Malignancy Medical History: Denies: Breast Cancer, Cervical Cancer, Leukemia, Ovarian Cancer GI Medical History: Reports: Gastroesophageal Reflux Disease Denies: Cirrhosis, Crohn's Disease, Hiatal Hernia - ? Musculoskeltal Medical History: Reports: Arthritis Denies: Fibromyalgia Psychiatric Medical History: Denies: Depression Hematology: Reports: Anemia - HX BLOOD TRANSFUSION AND IRON TRANSFUSIONS Denies: Hemophilia, Sickle Cell Disease, Bleeding Tendencies Infectious Medical History: Denies: HIV Past Surgical History Past Surgical History: Reports: Appendectomy - ?, Hysterectomy, Orthopedic Surge ry - R shoulder replacement, Valve Replacement - Mechanical aortic valve Denies: Amputation, Section, Cholecystectomy, Colostomy, Coronary Artery Bypass Graft, Gastric Bypass Surgery, Herniorrhaphy, Mastectomy, Pacemaker, Tonsillectomy, Tubal Ligation Social/Family History - Social History Smoking Status: Unknown if Ever Smoked Frequency of Alcohol Use: Rare Hx Recreational Drug Use: No Drugs: None Hx Prescription Drug Abuse: No - Medication/Allergies Home Medications: Duloxetine HCl [Cymbalta] 30 mg PO DAILY 03/16/17 Cholecalciferol (Vitamin D3) [Vitamin D3 5000 unit Capsule] 5,000 unit PO DAILY 02/09/18 Furosemide [Lasix 20 mg Tablet] 40 mg PO DAILY 02/09/18 Pantoprazole Sodium [Protonix] 40 mg PO DAILY 02/09/18 Enoxaparin Sodium [Lovenox Inj 60 Mg/0.6 Ml Disp.Syrin] 60 mg SUBCUT Q12 02/12/20 Fluocinonide 1 applic TP ASDIR PRN 02/12/20 Ketoconazole [Nizoral 2% Shampoo 120 ml Bottle] 1 applic TOP ASDIR PRN 02/12/20 Allergies/Adverse Reactions: [id number] Reductase Inhibitor Adverse Reaction (Verified 02/11/20 10:18) Review of Systems Constitutional: ABSENT: chills, fever(s), headache(s), weight gain, weight loss Eyes: ABSENT: visual disturbances Ears: ABSENT: hearing changes Cardiovascular: ABSENT: chest pain, dyspnea on exertion, edema, orthropnea, palpitations Respiratory: ABSENT: cough, hemoptysis Gastrointestinal: PRESENT: abdominal pain. ABSENT: constipation, diarrhea, hematemesis, hematochezia, nausea, vomiting Musculoskeletal: ABSENT: joint swelling Integumentary: ABSENT: rash, wounds Neurological: ABSENT: abnormal gait, abnormal speech, confusion, dizziness, focal weakness, syncope Physical Exam Vital Signs: Temp Pulse Resp BP Pulse Ox 98.4 F 80 16 125/73 97 02/17/20 10:00 02/17/20 07:45 02/17/20 07:45 02/17/20 07:45 02/17/20 07:45 Intake & Output 02/16/20 02/17/20 02/18/20 06:59 06:59 06:59 Intake Total 1430 1050 Output Total 1150 300 Balance 280 750 Weight 58.2 kg 58.1 kg Weight/Height Weight 58.1 kg Height 5 ft General appearance: PRESENT: no acute distress Head exam: PRESENT: atraumatic, normocephalic Eye exam: PRESENT: conjunctiva pink, EOMI, PERRLA. ABSENT: scleral icterus Ear exam: PRESENT: normal external ear exam Mouth exam: PRESENT: moist, tongue midline Respiratory exam: PRESENT: clear to auscultation moni. ABSENT: rales, rhonchi, wheezes Cardiovascular exam: PRESENT: RRR. ABSENT: diastolic murmur, rubs, systolic murmur GI/Abdominal exam: PRESENT: normal bowel sounds, soft, other - Incision dressed .. ABSENT: distended, guarding, mass, organolmegaly, rebound, tenderness Rectal exam: PRESENT: deferred Gentrourinary exam: PRESENT: indwelling catheter Extremities exam: PRESENT: full ROM. ABSENT: calf tenderness, clubbing, pedal edema Neurological exam: PRESENT: altered Laboratory/Radiographs Laboratory Results: 02/17/20 09:00 02/16/20 04:55 02/17/20 09:00 WBC 11.4 H RBC 3.99 Hgb 12.2 Hct 36.7 MCV 92 MCH 30.5 MCHC 33.1 RDW 15.6 H Plt Count 154 Impressions: Guidance Fluoroscopy 02/11/20 00:00 IMPRESSION: IMAGE(S) OBTAINED DURING PROCEDURE. Chest X-Ray 02/11/20 16:31 IMPRESSION: Cannot exclude airspace disease in the left lower lobe, pneumonia versus atelectasis. Right internal jugular catheter and endotracheal tube as described. Injection port remains in place. All labs, radiographs, diagnostic studies and EKGs were personally reviewed: Yes In addition, reports of radiographic and diagnostic studies were read: Yes Critical Time Critical Time (minutes): 40 -: The care of a critically ill patient is dynamic. This note represents a static moment in the admission process. Orders and treatments may be given simultaneously and urgently, and time is not outside sales representative insurance of the treatment process. This patient requires Critical Care secondary to life threatening organ or limb dysfunction. Without Critical Care services, the patient is at risk for increased mortality and morbidity.
--- NOTE | 2020-02-17 16:22 | PDOC PROGRESS REPORT ---
Subjective Progress Note for:: 02/17/20 Subjective:: feels well, sl confused this am Reason For Visit: METASTATIC COLON CANCER Physical Exam Vital Signs: Temp Pulse Resp BP Pulse Ox 98.1 F 77 16 94/65 L 98 02/17/20 15:26 02/17/20 14:00 02/17/20 15:26 02/17/20 15:26 02/17/20 11:40 Intake & Output 02/16/20 02/17/20 02/18/20 06:59 06:59 06:59 Intake Total 1430 1050 Output Total 1150 300 300 Balance 280 750 -300 Weight 58.2 kg 58.1 kg General appearance: PRESENT: no acute distress Head exam: PRESENT: normocephalic Eye exam: PRESENT: EOMI Ear exam: PRESENT: normal external ear exam Mouth exam: PRESENT: moist Neck exam: PRESENT: full ROM Respiratory exam: PRESENT: clear to auscultation moni Cardiovascular exam: PRESENT: RRR Pulses: PRESENT: normal radial pulses, normal femoral pulses, +2 pedal pulses bilateral Vascular exam: PRESENT: normal capillary refill Breast: PRESENT: Normal GI/Abdominal exam: PRESENT: soft Rectal exam: PRESENT: deferred Extremities exam: PRESENT: full ROM Musculoskeletal exam: PRESENT: full ROM Neurological exam: PRESENT: awake, oriented to person, oriented to place Skin exam: PRESENT: dry Results Laboratory Results: 02/17/20 09:00 02/16/20 04:55 02/17/20 09:00 WBC 11.4 H RBC 3.99 Hgb 12.2 Hct 36.7 MCV 92 MCH 30.5 MCHC 33.1 RDW 15.6 H Plt Count 154 Impressions: Guidance Fluoroscopy 02/11/20 00:00 IMPRESSION: IMAGE(S) OBTAINED DURING PROCEDURE. Chest X-Ray 02/11/20 16:31 IMPRESSION: Cannot exclude airspace disease in the left lower lobe, pneumonia versus atelectasis. Right internal jugular catheter and endotracheal tube as described. Injection port remains in place. Assessment & Plan - Time Anticipated Discharge Disposition: Home, Self Care Anticipated Discharge Timeframe: within 24 hours - Plan Summary Plan Summary: doing ok this am still no bm, although pt states she had a bm yestefday hct stable pt bruno diet drain removed plan will restart warfarin, cont lovenox will dc home after bm, hopefully tomorrow.
[2020-02-17 19:32] LABS: APPEARANCE,URINE SLIGHTLY-CLOUDY; BILIRUBIN,URINE NEGATIVE (NEGATIVE); COLOR,URINE AMBER; GLUCOSE, URINE NEGATIVE (NEGATIVE); KETONES,URINE TRACE mg/dL (NEGATIVE); LEUKOCYTE ESTERASE,URINE TRACE (NEGATIVE); NITRITE,URINE NEGATIVE (NEGATIVE); PROTEIN,URINE 30 mg/dL (NEGATIVE); URINE SPECIFIC GRAVITY 1.027; UROBILINOGEN,URINE NEGATIVE mg/dL (<2.0)
[2020-02-17] MEDS ORDERED: WARFARIN SODIUM 5 MG TABLET PO SCH (22:00)
[2020-02-18 05:29] LABS: INTERNATIONAL RATION (INR) 1.18; PROTHROMBIN TIME 15.2 SEC (11.4-15.4)
[2020-02-18 05:56] LABS: ANION GAP 10 (5-19); BLOOD UREA NITROGEN 16 mg/dL (7-20); CALCIUM 8.8 mg/dL (8.4-10.2); CARBON DIOXIDE 27 mmol/L (22-30); CHLORIDE 101 mmol/L (98-107); GLUCOSE 104 mg/dL (75-110); POTASSIUM 3.2 mmol/L (3.6-5.0)
[2020-02-18] MEDS: ENOXAPARIN SODIUM INJ 60 MG/0.6 ML DISP.SYRIN SUBCUT SCH (06:10)
--- NOTE | 2020-02-18 07:24 | PDOC DISCHARGE SUMMARY ---
General - Admit/Disc Date/PCP Admission Date/Primary Care Provider: 02/11/20 09:37 JUAN CRAFT MD Discharge Date: 02/18/20 - Discharge Diagnosis Final Diagnosis: metastatic colon cancer - Assessment Summary: Patient was admitted on 02/12/2020 for elective right hemicolectomy and partial liver resection for metastatic colon cancer. She underwent the procedure and tolerated well. She was admitted to the intensive care unit the surgical day postoperatively for ventilator management. The following morning she was extubated and subsequently transferred to the floor and continued to do well throughout the remainder of her hospital course. She slowly recovered and bowel function returned over the next 5 days. Her hemoglobin hematocrit remained stable as well as her white count. She was restarted on her Coumadin however continued Lovenox throughout her hospital course. This morning she had a bowel movement and is tolerating a regular diet. She will be discharged home today with close follow-up with surgery and oncology. She will be seen in surgical clinic in 7 days for staple removal. - Additional Information Resuscitation Status: Full Code Discharge Diet: As Tolerated Discharge Activity: No Lifting Over 10 Pounds Referrals: JUAN CARFT MD [Primary Care Provider] - Home Medications: Duloxetine HCl [Cymbalta] 30 mg PO DAILY 03/16/17 Cholecalciferol (Vitamin D3) [Vitamin D3 5000 unit Capsule] 5,000 unit PO DAILY 02/09/18 Furosemide [Lasix 20 mg Tablet] 40 mg PO DAILY 02/09/18 Pantoprazole Sodium [Protonix] 40 mg PO DAILY 02/09/18 Enoxaparin Sodium [Lovenox Inj 60 Mg/0.6 Ml Disp.Syrin] 60 mg SUBCUT Q12 02/12/20 Fluocinonide 1 applic TP ASDIR PRN 02/12/20 Ketoconazole [Nizoral 2% Shampoo 120 ml Bottle] 1 applic TOP ASDIR PRN 02/12/20 History of Present Illiness History of Present Illness: ZENY PRITCHARD is a 80 year old female Physical Exam Vital Signs: Temp Pulse Resp BP Pulse Ox 97.8 F 43 L 18 101/60 95 02/17/20 23:51 02/17/20 23:51 02/17/20 23:51 02/17/20 23:51 02/17/20 23:51 Intake & Output 02/17/20 02/18/20 02/19/20 06:59 06:59 06:59 Intake Total 1050 100 Output Total 300 300 Balance 750 -200 Weight 58.1 kg 71.1 kg Results Laboratory Results: WBC 11.4 10^3/uL (4.0-10.5) H 02/17/20 09:00 RBC 3.99 10^6/uL (3.72-5.28) 02/17/20 09:00 Hgb 12.2 g/dL (12.0-15.5) 02/17/20 09:00 Hct 36.7 % (36.0-47.0) 02/17/20 09:00 MCV 92 fl (80-97) 02/17/20 09:00 MCH 30.5 pg (27.0-33.4) 02/17/20 09:00 MCHC 33.1 g/dL (32.0-36.0) 02/17/20 09:00 RDW 15.6 % (11.5-14.0) H 02/17/20 09:00 Plt Count 154 10^3/uL (150-450) 02/17/20 09:00 Lymph % (Auto) 11.4 % (13-45) L 02/16/20 04:55 [place] % (Auto) 9.0 % (3-13) 02/16/20 04:55 Eos % (Auto) 3.1 % (0-6) 02/16/20 04:55 Baso % (Auto) 0.6 % (0-2) 02/16/20 04:55 Absolute Neuts (auto) 7.0 10^3/uL (1.7-8.2) 02/16/20 04:55 Absolute Lymphs (auto) 1.0 10^3/uL (0.5-4.7) 02/16/20 04:55 Absolute Monos (auto) 0.8 10^3/uL (0.1-1.4) 02/16/20 04:55 Absolute Eos (auto) 0.3 10^3/uL (0.0-0.6) 02/16/20 04:55 Absolute Basos (auto) 0.1 10^3/uL (0.0-0.2) 02/16/20 04:55 Seg Neutrophils % 75.9 % (42-78) 02/16/20 04:55 PT 15.2 SEC (11.4-15.4) 02/18/20 05:09 INR 1.18 02/18/20 05:09 APTT 29.4 SEC (23.5-35.8) 02/11/20 10:20 Sodium 138.3 mmol/L (137-145) 02/18/20 05:09 Potassium 3.2 mmol/L (3.6-5.0) L 02/18/20 05:09 Chloride 101 mmol/L (98-107) 02/18/20 05:09 Carbon Dioxide 27 mmol/L (22-30) 02/18/20 05:09 Anion Gap 10 (5-19) 02/18/20 05:09 BUN 16 mg/dL (7-20) 02/18/20 05:09 Creatinine 0.76 mg/dL (0.52-1.25) 02/18/20 05:09 Est GFR ( Amer) > 60 (>60) 02/18/20 05:09 Est GFR (Non-Af Amer) Cancelled 02/12/20 05:30 Est GFR (MDRD) Non-Af > 60 (>60) 02/18/20 05:09 Glucose 104 mg/dL (75-110) 02/18/20 05:09 POC Glucose 133 mg/dL (70-110) H 02/17/20 15:57 Calcium 8.8 mg/dL (8.4-10.2) 02/18/20 05:09 Magnesium 2.1 mg/dL (1.6-2.3) 02/14/20 05:35 Total Bilirubin 0.8 mg/dL (0.2-1.3) 02/14/20 05:35 Direct Bilirubin 0.2 mg/dL (0.0-0.4) 02/14/20 05:35 Neonat Total Bilirubin Not Reportable 02/14/20 05:35 Neonat Direct Bilirubin Not Reportable 02/14/20 05:35 Neonat Indirect Bili Not Reportable 02/14/20 05:35 AST 168 U/L (14-36) H 02/14/20 05:35 ALT 156 U/L (<35) H 02/14/20 05:35 Alkaline Phosphatase 70 U/L (38-126) 02/14/20 05:35 Total Protein 4.7 g/dL (6.3-8.2) L 02/14/20 05:35 Albumin 2.6 g/dL (3.5-5.0) L 02/14/20 05:35 EGFR Cancelled 02/12/20 05:30 Urine Color MARYAN 02/17/20 18:44 Urine Appearance SLIGHTLY-CLOUDY 02/17/20 18:44 Urine pH 5.0 (5.0-9.0) 02/17/20 18:44 Ur Specific [place] 1.027 02/17/20 18:44 Urine Protein 30 mg/dL (NEGATIVE) H 02/17/20 18:44 Urine Glucose (UA) NEGATIVE mg/dL (NEGATIVE) 02/17/20 18:44 Urine Ketones TRACE mg/dL (NEGATIVE) H 02/17/20 18:44 Urine Blood NEGATIVE (NEGATIVE) 02/17/20 18:44 Urine Nitrite NEGATIVE (NEGATIVE) 02/17/20 18:44 Urine Bilirubin NEGATIVE (NEGATIVE) 02/17/20 18:44 Urine Urobilinogen NEGATIVE mg/dL (<2.0) 02/17/20 18:44 Ur Leukocyte Esterase TRACE (NEGATIVE) H 02/17/20 18:44 Urine WBC (Auto) 3 /HPF 02/17/20 18:44 Urine RBC (Auto) 0 /HPF 02/17/20 18:44 U Hyaline Cast (Auto) 5 /LPF 02/17/20 18:44 Squamous Epi Cells Auto 5 /HPF 02/17/20 18:44 U Non-Squamous Epis Auto 1 /HPF 02/17/20 18:44 Urine Mucus (Auto) OCC /LPF 02/17/20 18:44 Urine Ascorbic Acid 20 (NEGATIVE) H 02/17/20 18:44 COVID-19 Source See comment 02/07/20 10:45 COVID-19 (LAURA) Not Detected (Not Detect) 02/07/20 10:45 Blood Type O POSITIVE 02/11/20 10:20 Blood Type Confirm O POSITIVE 02/11/20 10:20 Antibody Screen NEGATIVE 02/11/20 10:20 Crossmatch See Detail 02/11/20 10:20 Impressions: Guidance Fluoroscopy 02/11/20 00:00 IMPRESSION: IMAGE(S) OBTAINED DURING PROCEDURE. Chest X-Ray 02/11/20 16:31 IMPRESSION: Cannot exclude airspace disease in the left lower lobe, pneumonia versus atelectasis. Right internal jugular catheter and endotracheal tube as described. Injection port remains in place.
--- NOTE | 2020-02-18 07:52 | PDOC PROGRESS REPORT ---
Subjective Progress Note for:: 02/18/20 Subjective:: Patient apparently did have a bowel movement this time. Otherwise seems to be doing better. Reason For Visit: METASTATIC COLON CANCER Physical Exam Vital Signs: Temp Pulse Resp BP Pulse Ox 97.8 F 43 L 18 101/60 95 02/17/20 23:51 02/17/20 23:51 02/17/20 23:51 02/17/20 23:51 02/17/20 23:51 Intake & Output 02/17/20 02/18/20 02/19/20 06:59 06:59 06:59 Intake Total 1050 100 Output Total 300 300 Balance 750 -200 Weight 58.1 kg 71.1 kg General appearance: PRESENT: no acute distress, well-developed, well-nourished Head exam: PRESENT: atraumatic, normocephalic Eye exam: PRESENT: conjunctiva pink, EOMI, PERRLA. ABSENT: scleral icterus Ear exam: PRESENT: normal external ear exam Mouth exam: PRESENT: moist, tongue midline Neck exam: ABSENT: carotid bruit, JVD, lymphadenopathy, thyromegaly Respiratory exam: PRESENT: clear to auscultation moni. ABSENT: rales, rhonchi, wheezes Cardiovascular exam: PRESENT: RRR. ABSENT: diastolic murmur, rubs, systolic murmur Pulses: PRESENT: normal dorsalis pedis pul Vascular exam: PRESENT: normal capillary refill GI/Abdominal exam: PRESENT: normal bowel sounds, soft. ABSENT: distended, guarding, mass, organolmegaly, rebound, tenderness Rectal exam: PRESENT: deferred Extremities exam: PRESENT: full ROM. ABSENT: calf tenderness, clubbing, pedal edema Neurological exam: PRESENT: alert, awake, oriented to person, oriented to place, oriented to time, oriented to situation, CN II-XII grossly intact. ABSENT: motor sensory deficit Psychiatric exam: PRESENT: appropriate affect, normal mood. ABSENT: homicidal ideation, suicidal ideation Skin exam: PRESENT: dry, intact, warm. ABSENT: cyanosis, rash Results Laboratory Results: 02/17/20 09:00 02/18/20 05:09 02/17/20 02/17/20 02/18/20 09:00 18:44 05:09 WBC 11.4 H RBC 3.99 Hgb 12.2 Hct 36.7 MCV 92 MCH 30.5 MCHC 33.1 RDW 15.6 H Plt Count 154 Sodium 138.3 Potassium 3.2 L Chloride 101 Carbon Dioxide 27 Anion Gap 10 BUN 16 Creatinine 0.76 Est GFR ( Amer) > 60 Glucose 104 Calcium 8.8 Urine Color MARYAN Urine Appearance SLIGHTLY-CLOUDY Urine pH 5.0 Ur Specific [place] 1.027 Urine Protein 30 H Urine Glucose (UA) NEGATIVE Urine Ketones TRACE H Urine Blood NEGATIVE Urine Nitrite NEGATIVE Ur Leukocyte Esterase TRACE H Urine WBC (Auto) 3 Urine RBC (Auto) 0 Impressions: Guidance Fluoroscopy 02/11/20 00:00 IMPRESSION: IMAGE(S) OBTAINED DURING PROCEDURE. Chest X-Ray 02/11/20 16:31 IMPRESSION: Cannot exclude airspace disease in the left lower lobe, pneumonia versus atelectasis. Right internal jugular catheter and endotracheal tube as described. Injection port remains in place. Assessment & Plan - Diagnosis (1) Valvular heart disease Is this a current diagnosis for this admission?: Yes Plan: Recheck INR later this week. Continue with warfarin 5 mg daily on discharge. Continue with Lovenox as dosed. (2) Colon cancer metastasized to liver Is this a current diagnosis for this admission?: Yes Plan: Status post surgery, we will discuss further as an outpatient (3) Anemia Qualifiers: Anemia type: iron deficiency Iron deficiency anemia type: chronic blood loss Qualified Code(s): D50.0 - Iron deficiency anemia secondary to blood loss (chronic) Is this a current diagnosis for this admission?: Yes Plan: Hemoglobin most recently was stable we will need to recheck as an outpatient and treat accordingly with further IV iron if needed. - Time Time Spent with patient: 35 or more minutes - Inpatient Certification I certify that my determination is in accordance with my understanding of Medicare's requirements for reasonable and necessary INPATIENT services [42 CFR 412.3e].: Yes
[2020-02-18] MEDS: POTASSI CL 20 MEQ/50 ML RIDER 20 MEQ/50 ML RTUPB IV SCH ×2 (08:23→10:56)
--- NOTE | 2020-02-18 09:30 | PDOC PROGRESS REPORT ---
Subjective Progress Note for:: 02/18/20 Subjective:: Patient is currently doing much better Is passing the gas and have a positive bowel movement and surgery discharge the patient's Is currently receiving the IV potassiums because potassium level was 3.2 Patient is clear from the cardiology continues the low-dose metoprolol currently hold the Lasix Patient also follow with the hematology for the Lovenox and Coumadin Patient's denied any chest pain no short of breath Reason For Visit: METASTATIC COLON CANCER Physical Exam Vital Signs: Temp Pulse Resp BP Pulse Ox 97.4 F 89 16 134/68 H 100 02/18/20 08:00 02/18/20 08:00 02/18/20 08:00 02/18/20 08:00 02/18/20 08:00 Intake & Output 02/17/20 02/18/20 02/19/20 06:59 06:59 06:59 Intake Total 1050 100 Output Total 300 300 Balance 750 -200 Weight 58.1 kg 71.1 kg General appearance: PRESENT: no acute distress, well-developed, well-nourished Head exam: PRESENT: atraumatic, normocephalic Eye exam: PRESENT: conjunctiva pink, EOMI, PERRLA. ABSENT: scleral icterus Ear exam: PRESENT: normal external ear exam Mouth exam: PRESENT: moist, tongue midline Neck exam: PRESENT: full ROM. ABSENT: carotid bruit, JVD, lymphadenopathy, thyromegaly Respiratory exam: PRESENT: clear to auscultation moni Cardiovascular exam: PRESENT: RRR. ABSENT: diastolic murmur, rubs, systolic murmur Pulses: PRESENT: normal dorsalis pedis pul, +2 pedal pulses bilateral Vascular exam: PRESENT: normal capillary refill GI/Abdominal exam: PRESENT: normal bowel sounds, soft. ABSENT: distended, guarding, mass, organolmegaly, rebound, tenderness Additonal comments: Surgical scar is all clean Rectal exam: PRESENT: deferred Musculoskeletal exam: PRESENT: ambulatory Neurological exam: PRESENT: alert, awake, oriented to person, oriented to place, oriented to time, oriented to situation, CN II-XII grossly intact. ABSENT: motor sensory deficit Psychiatric exam: PRESENT: appropriate affect, normal mood. ABSENT: homicidal ideation, suicidal ideation Skin exam: PRESENT: dry, intact, warm. ABSENT: cyanosis, rash Results Laboratory Results: 02/17/20 09:00 02/18/20 05:09 02/17/20 02/17/20 02/18/20 09:00 18:44 05:09 WBC 11.4 H RBC 3.99 Hgb 12.2 Hct 36.7 MCV 92 MCH 30.5 MCHC 33.1 RDW 15.6 H Plt Count 154 Sodium 138.3 Potassium 3.2 L Chloride 101 Carbon Dioxide 27 Anion Gap 10 BUN 16 Creatinine 0.76 Est GFR ( Amer) > 60 Glucose 104 Calcium 8.8 Urine Color MARYAN Urine Appearance SLIGHTLY-CLOUDY Urine pH 5.0 Ur Specific [place] 1.027 Urine Protein 30 H Urine Glucose (UA) NEGATIVE Urine Ketones TRACE H Urine Blood NEGATIVE Urine Nitrite NEGATIVE Ur Leukocyte Esterase TRACE H Urine WBC (Auto) 3 Urine RBC (Auto) 0 Impressions: Guidance Fluoroscopy 02/11/20 00:00 IMPRESSION: IMAGE(S) OBTAINED DURING PROCEDURE. Chest X-Ray 02/11/20 16:31 IMPRESSION: Cannot exclude airspace disease in the left lower lobe, pneumonia versus atelectasis. Right internal jugular catheter and endotracheal tube as described. Injection port remains in place. Assessment & Plan - Diagnosis (1) Atrial fibrillation Qualifiers: Atrial fibrillation type: paroxysmal Qualified Code(s): I48.0 - Paroxysmal atrial fibrillation Is this a current diagnosis for this admission?: Yes (2) Colon cancer metastasized to liver Is this a current diagnosis for this admission?: Yes (3) Hypotension after procedure Is this a current diagnosis for this admission?: Yes (4) Anemia Qualifiers: Anemia type: iron deficiency Iron deficiency anemia type: chronic blood loss Qualified Code(s): D50.0 - Iron deficiency anemia secondary to blood loss (chronic) Is this a current diagnosis for this admission?: Yes (5) Congestive heart failure Qualifiers: Heart failure type: combined systolic and diastolic Heart failure chronicity: chronic Qualified Code(s): I50.42 - Chronic combined systolic (congestive) and diastolic (congestive) heart failure Is this a current diagnosis for this admission?: Yes (6) Valvular heart disease Is this a current diagnosis for this admission?: Yes - Time Time Spent with patient: 15-24 minutes Level of Care: IMCU Medications reviewed and adjusted accordingly: Yes Anticipated discharge: Home with Homehealth Anticipated DC Timeframe: within 24 hours - Plan Summary Plan Summary: Follow in office 1 week send the prescriptions for the beta-[facility] continues follow-up with hematology and surgery
[2020-02-18] MEDS: METOPROLOL TARTRATE 25 MG TABLET PO SCH (10:24)
[2020-02-18] MEDS: FAMOTIDINE INJ/PF 20 MG/2 ML SDV IV SCH (10:24)
[2020-02-18] MEDS: DULOXETINE HCL 30 MG CAPSULE.DR PO SCH (10:24)
[2020-02-18 14:56] VITALS: BP 134/68
== END 2020-02-18 15:15 | disposition home or self-care (01) | DRG 330 ==
LOC: INOR 09:37 → ICU 15:36 → 4W 02-13 06:15
PROVIDERS: ADMIT Surgery; ATTEND Family Medicine
PROC: 5A1935Z Respiratory Ventilation, Less than 24 Consecutive Hours (ICD-10-PCS; 2020-02-11)
PROC: 30233N1 Transfusion of Nonautologous Red Blood Cells into Peripheral Vein, Percutaneous Approach (ICD-10-PCS; 2020-02-11)
PROC: 02HV33Z Insertion of Infusion Device into Superior Vena Cava, Percutaneous Approach (ICD-10-PCS; 2020-02-11)
PROC: 0JH63WZ Insertion of Totally Implantable Vascular Access Device into Chest Subcutaneous Tissue and Fascia, Percutaneous Approach (ICD-10-PCS; 2020-02-11)
PROC: 02HV33Z Insertion of Infusion Device into Superior Vena Cava, Percutaneous Approach (ICD-10-PCS; 2020-02-11)
PROC: 0DTF0ZZ Resection of Right Large Intestine, Open Approach (ICD-10-PCS; principal; 2020-02-11 12:00)
PROC: 0FB00ZZ Excision of Liver, Open Approach (ICD-10-PCS; 2020-02-11 12:00)
DX: C18.9 Malignant neoplasm of colon, unspecified (principal); C78.7 Secondary malignant neoplasm of liver and intrahepatic bile duct; I50.42 Chronic combined systolic (congestive) and diastolic (congestive) heart failure; Z20.828 Contact with and (suspected) exposure to other viral communicable diseases; K59.00 Constipation, unspecified; I95.81 Postprocedural hypotension; D50.0 Iron deficiency anemia secondary to blood loss (chronic); I25.10 Atherosclerotic heart disease of native coronary artery without angina pectoris; K21.9 Gastro-esophageal reflux disease without esophagitis; Z96.611 Presence of right artificial shoulder joint; I48.0 Paroxysmal atrial fibrillation; Z79.899 Other long term (current) drug therapy; Z95.2 Presence of prosthetic heart valve; Z79.01 Long term (current) use of anticoagulants; Z88.8 Allergy status to other drugs, medicaments and biological substances
CPT/HCPCS: 00792; 36415; 36430; 71045; 77001; 80048; 80076; 81001; 82962; 83735; 85025; 85027; 85610; 85730; 86850; 86900; 86901; 86920; 87086; 87635; 88307; 88309; 93005; 93010; 94002; 94003; 99221; J0610; C1758; C9250; C9290; C9803; J0282; J0690; J1100; J1642; J1644; J1650; J1815; J1885; J1940; J2250; J2370; J2405; J2704; J3010; J3480; J3490; J7060; J7121; P9016; Q9967; S0028